=== PATIENT | male | born 1985 | race Caucasian/White ===

== ENCOUNTER 2016-10-19 16:25 | Emergency (ER) | payer OTHER ==
[~2016-10-19] VITALS: Ht 172.7 cm; Wt 188.2 kg
[~2016-10-19 16:25] MED LIST changes: -FLONASE ALLERG9.9 ML NAS; -ROBITUSSIN DM 105 ML PO
[2016-10-19] MEDS ORDERED: FLONASE ALLERG9.9 ML NAS (17:55)
[2016-10-19] MEDS ORDERED: CLARITIN10 MG PO (17:55)
[2016-10-19] MEDS ORDERED: ROBITUSSIN DM 105 ML PO (17:55)
[2016-10-19] MEDS ORDERED: PREDNISONE10 MG PO (17:55)
== END 2016-10-19 18:03 | disposition home or self-care (01) ==
LOC: ED 16:25
DX: B34.9 Viral infection, unspecified (principal); I10 Essential (primary) hypertension; I99.8 Other disorder of circulatory system; F90.9 Attention-deficit hyperactivity disorder, unspecified type; E13.10 Other specified diabetes mellitus with ketoacidosis without coma; K21.9 Gastro-esophageal reflux disease without esophagitis; E03.9 Hypothyroidism, unspecified; D64.9 Anemia, unspecified; Z79.899 Other long term (current) drug therapy; Z88.6 Allergy status to analgesic agent

== ENCOUNTER → 2016-10-19 | Outpatient (CLI) | payer OTHER ==
[~2016-10-19] MED LIST: ACTOS15 M1 PO; ADDERALL XR20 MG PO; ALBUTEROL0.09 MG/A2 IH; AMARYL4 MG PO; AMOXICILLIN500 MG PO; ANUSOL HC30 GM PO; ASPIRIN ADULT L81 M1 PO; BACTRIM DS 8001 TA1 PO; BENTYL20 MG PO; BYETTA10 MCG/0.0 SC; CIPROFLOXACIN500 MG PO; CLARITIN10 MG PO; COREG12.5 M1 PO; COREG6.25 MG PO; DELTASONE10 MG PO; DOXYCYCLINE100 MG PO; DUONEB 3 MG/3 ML3 M1 INH; FENOGLIDE40 MG PO; FLONASE ALLERG9.9 ML NAS; GLIPIZIDE1 POW; HUMALOG100 UNIT/1 SQ; HYDRALAZINE HCL50 MG PO; HYDROCODONE BIT1 T11 PO; IMODIUM A-D2 M2 PO; IMODIUM MULTI-S1 TAB PO; K-DUR 2020 MEQ PO; KEFLEX500 M1 PO; KEFLEX500 MG PO; LAC-HYDRIN12% TP; LANTUS100 U/ML SC; LASIX20 MG PO; LASIX40 MG PO; LEVAQUIN750 M1 PO; LEVOFLOXACIN500 MG PO; LISINOPRIL/HCTZ1 TA3 PO; LISINOPRIL10 MG PO; LOPERAMIDE2 MG PO; MAG-OX 400400 MG PO; METFORMIN1000 MG PO; MIRALAX POWDER17 G1 PO; MOTRIN800 MG PO; Metformin Hydr500 MG PO; Motrin,Rufen800 MG PO; NEURONTIN600 MG PO; NORVASC10 MG PO; NOVOLOG1 UNIT/0.0 SC; NOVOLOG10 ML SQ; NYSTATIN CREAM15 GM T; Nizoral 2%15 GM PO; OMNICEF300 MG PO; OXYGEN NAS; PERCOCET 325 MG1 TA2 PO; POTASSIUM20 MEQ PO; PRAVACHOL20 MG PO; PREDNISONE10 MG PO; PREDNISONE20 M1 PO; PRILOSEC20 MG; PRILOSEC40 MG PO; PROAIR HFA8.5 GM INH; PROTONIX40 MG PO; Percocet 325 MG1 TAB PO; ROBITUSSIN DM 105 ML PO; SYNTHROID0.05 MG PO; TRAMADOL HCL50 MG PO; TYLENOL325 M1 PO; VENTOLIN H0.09 MG/AC INH; VICODIN 5/500 505 MG PO; VICTOZA 3-PAK6 MG/ML SC; VICTOZA6 MG/ML SC; VITAMIN D2400 IU PO; VITAMIN D32000 IU PO; VOLTAREN50 M1 PO; ZITHROMAX Z PA250 MG PO; ZYRTEC10 MG PO; [UNRECOGNIZED DRUG - OTHER] TP
== END | disposition home or self-care (01) ==
LOC: RAD 15:27
DX: M79.674 Pain in right toe(s) (principal)

== ENCOUNTER 2017-02-27 18:24 | Inpatient (IN) | payer OTHER ==
[~2017-02-27] VITALS: Ht 172.7 cm; Wt 179.2 kg
--- NOTE | ~2017-02-27 | CON ---
[place], [place] REPORT OF CONSULTATION NAME: SD RIGGS JR [facility] [id number] UNIT #: [id number] ROOM: 408 DOCTOR: MANGO PAN MD BIRTHDATE: [birth year] DOS: 02/28/2017 REASON FOR CONSULTATION: Dyspnea and peripheral edema. HISTORY OF PRESENT ILLNESS: The patient is a 31-year-old man who has a history of super morbid obesity. This has been complicated by diabetes, hypertension, hypothyroidism, asthma and sleep apnea. The patient does use oxygen at home, but has refused to use a CPAP. He presents to the hospital on this occasion because of worsening peripheral edema and sugar out of control. He states that his sugar was over 400 at home prior to his arrival and he has noted that his legs have become more swollen. His legs do ooze water. He cannot tell me how long this has been going on. He denies fevers or chills. He denies any abrupt increase in his dyspnea, but feels that he is always short of breath. He was evaluated by [facility] in 12/2015. Two echocardiograms were done and were of low quality because of his body habitus; however, both showed normal left and right ventricular size and function with no significant aortic disease or pericardial disease. PAST MEDICAL HISTORY: Includes: 1. Super morbid obesity. 2. Hypertension. 3. Hypothyroidism. 4. Diabetes which has not been controlled lately. 5. Asthma. 6. Obstructive sleep apnea. FAMILY HISTORY: Negative for early coronary artery disease. MEDICATIONS: Prior to admission included albuterol by nebulizer b.i.d., oxygen 3 liters by nasal cannula continuously, amlodipine 10 mg daily, carvedilol 12.5 mg twice a day, vitamin D 2000 units daily, Adderall 20 mg b.i.d., fenofibrate 40 mg 4 tablets daily, furosemide 40 mg daily, gabapentin 800 mg t.i.d., hydralazine 50 mg b.i.d., levothyroxine 50 mcg daily, Imodium p.r.n., metformin 1000 mg b.i.d., pantoprazole 40 mg daily, pioglitazone 50 mg daily, potassium 20 mEq daily, NovoLog insulin 50 units a.c. and at bedtime with Lantus insulin q. 12 hours. ALLERGIES: The chart indicates that he has allergies to acetaminophen in [place] and hydrocodone in [place]. This combination of medications causes itching. REVIEW OF SYSTEMS: This patient denies diplopia or recent change in vision. He denies focal weakness. He does complain of headache. He denies syncope or lightheadedness. He does have chronic dyspnea. He denies nausea or vomiting. He denies cough, fevers or chills. He denies any change in bowel or bladder habits. He denies bleeding from his nose, mouth, urine or stool. He denies any obvious skin rashes. He does state that his legs have been much more swollen lately, although he cannot tell me how long. He does admit to oozing from his legs. The remainder of the review of systems is negative except as noted above. [place], [place] REPORT OF CONSULTATION NAME: SD RIGGS JR UNIT #: [id number] ROOM: [facility] DOCTOR: MANGO PAN MD BIRTHDATE: [birth year] SOCIAL HISTORY: The patient does not smoke, but he does chew tobacco. He does not consume alcohol. PHYSICAL EXAMINATION: GENERAL: Reveals a morbidly obese white male who is awake, alert and oriented. VITAL SIGNS: Pulse is 74 and regular, blood pressure is 148/70. He is afebrile. Oxygen saturation on nasal cannula oxygen is 99%. He weighs 193.7 kilograms with a body mass index of 64.9. HEENT: Normocephalic and atraumatic. Extraocular muscles are intact. Sclerae are clear. Pupils are equal, round and reactive to light. The oral mucosa is moist. Tongue is midline. NECK: Severely obese, but supple. Carotids are full. I could not see neck veins. He had no neck or supraclavicular masses. LUNGS: Respirations were unlabored at rest. His chest was clear. He did not have any wheezes or rales. He had no presacral edema. CARDIOVASCULAR: Heart had a regular rhythm with distant tones. There was a fourth heart sound present, but no third heart sound or obvious murmur. The PMI was not displaced, although the PMI was very difficult to feel. ABDOMEN: Obese, but otherwise benign without masses, organomegaly, bruits or tenderness. EXTREMITIES: Showed 1+ edema to the knees. SKIN: He does have skin on his ankles with chronic stasis changes. LABORATORY DATA: The patient's EKG shows sinus rhythm with low voltage. No acute ST changes are seen. Chest x-ray shows mild cardiomegaly and possible vascular congestion. Serial troponin levels have been unremarkable. Hemoglobin is 11.2, white count 6200, platelet count 300,000. TSH is 1.63. Sodium is 144, potassium 4.5, BUN 17, creatinine 0.79. Sugar this morning is 127, but hemoglobin A1c is 11.4. IMPRESSIONS: 1. Dyspnea, probably due to the patient's body habitus and restrictive lung disease. 2. Peripheral edema, possibly due to the combined effects of constrictive pulmonary disease, possibly compounded by heart failure from chronic hypoxemia and sleep apnea. 3. Super morbid obesity. 4. Obstructive sleep apnea. 5. Diabetes out of control. 6. Hypertension. PLAN: I agree with diuresing him empirically for now. We will try to get another echocardiogram to make sure that his LV function has not deteriorated in the last year. If LV function remains normal, we will continue to treat him medically for his hypertension and as needed to prevent fluid retention. No other cardiac workup is planned at this time. We thank the hospitalist physicians for asking our advice regarding his care. [place], [place] REPORT OF CONSULTATION NAME: SD RIGGS JR UNIT #: [id number] ROOM: [facility] DOCTOR: MANGO PAN MD BIRTHDATE: [birth year] MANGO PAN MD CM:CONSTR:REPORT OF CONSULTATION 9 02/28/17 [id number] interface
--- NOTE | ~2017-02-27 | PR ---
[place], [place] PROGRESS NOTE NAME: SD RIGGS JR UNIT #: [id number] ROOM: 408 DOCTOR: MANGO PAN MD BIRTHDATE: [birth year] DOS: 03/03/2017 CARDIOLOGY PROGRESS NOTE SUBJECTIVE: The patient was seen at his bedside today for followup of his fluid overload in the setting of super morbid obesity and sleep apnea. The patient has diuresed dramatically and tells me he has lost 32 pounds since he entered the hospital. As noted previously, an echocardiogram showed a mildly dilated left ventricle with normal segmental wall motion and overall systolic function. The study was technically difficult, but the ejection fraction was normal and there was no significant abnormality or valve function seen. Diastole could not be fully assessed. PHYSICAL EXAMINATION: VITAL SIGNS: Today, his pulse is 70 and regular, blood pressure is 136/78. He is afebrile. He weighs 179.2 kilograms. NECK: Supple. He has no obvious jugular venous distention. CHEST: Clear. HEART: Has a regular rhythm with distant tones. ABDOMEN: Obese, but otherwise benign. EXTREMITIES: Showed no edema. He does seem to have stabilized from a cardiac standpoint. IMPRESSION: 1. Dyspnea, most likely due to the patient's body habitus and possible restrictive lung disease. 2. Peripheral edema likely due to restrictive lung disease and possible diastolic heart failure from chronic hypoxemia and sleep apnea. 3. Super morbid obesity. 4. Obstructive sleep apnea. 5. Diabetes, which was out of control on admission. 6. Hypertension. PLAN: We will switch him from IV to oral diuretics. I think we can discontinue his monitor at this point, he would also like to have his IV removed and I have no more need for that during this hospitalization. From my perspective, he could be discharged to home and followed up as an outpatient. We will sign off his care at this time, but would be happy to see him at any time in the future at Dr. Eagle's request. We thank Dr. Eagle for asking our advice regarding the patient's care. [place], [place] PROGRESS NOTE NAME: SD RIGGS JR UNIT #: [id number] ROOM: 408 DOCTOR: MANGO PAN MD BIRTHDATE: [birth year] MANGO PAN MD CM:PNRADHA [id number] MANGO PAN MD 03/04/170 interface
--- NOTE | ~2017-02-27 | PR ---
[place], [place] PROGRESS NOTE NAME: SD RIGGS JR [facility] #: [id number] UNIT #: [id number] ROOM: 408 DOCTOR: MANGO PAN MD BIRTHDATE: [birth year] DOS: 03/01/2017 CARDIOLOGY PROGRESS NOTE SUBJECTIVE: The patient was seen at his bedside today for followup of his fluid retention in the setting of super morbid obesity and sleep apnea. I did review his echocardiogram, which was done yesterday. It showed a mildly dilated left ventricle with normal segmental wall motion. There is mild concentric left ventricular hypertrophy. This was a technically difficult study, but the ejection fraction was obviously greater than 55%. Diastole could not be fully assessed. Left atrial size was normal. No significant abnormality of valve function was seen. The patient's intake and output shows that he is in a negative fluid balance and he states that he does feel better wherever he is walking with less dyspnea. He continues to make copious amounts of urine. PHYSICAL EXAMINATION: VITAL SIGNS: Pulse is 89 and regular, blood pressure is 134/72. He is afebrile. NECK: Supple. I do not see jugular distention, but his neck is very heavy and the veins are obscured his carotids are full. LUNGS: Respirations are unlabored. He has decreased breath sounds at the bases, but no wheezes or rales. HEART: Has a regular rhythm with an S4 gallop. ABDOMEN: Massively obese without masses, organomegaly or bruits apparent. EXTREMITIES: Showed trace edema bilaterally. He does have chronic stasis changes of his ankles. IMPRESSION: 1. Dyspnea, most likely due to the patient's body habitus and possible restrictive lung disease. 2. Peripheral edema likely due to constrictive lung disease and possible diastolic heart failure from chronic hypoxemia and sleep apnea. 3. Super morbid obesity. 4. Obstructive sleep apnea. 5. Diabetes out of control. 6. Hypertension, which appears to be controlled at this time. PLAN: I would continue his beta agustín and switch his furosemide from IV to oral. He should be encouraged to ambulate as much as possible. 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 No other cardiac workup is planned at this time and we will follow him peripherally while he is still in the hospital. We thank Dr. Eagle for asking our advice regarding the patient's care. [place], [place] PROGRESS NOTE NAME: SD RIGGS JR UNIT #: [id number] ROOM: 408 DOCTOR: MANGO PAN MD BIRTHDATE: [birth year] MANGO PAN MD CM:PNTRANS [id number] MANGO PAN MD 03/02/17 0547 interface
[~2017-02-27 18:24] MED LIST changes: +FLONASE ALLERG9.9 ML NAS; +ROBITUSSIN DM 105 ML PO
[2017-02-27 18:55] VITALS: BP 175/76
[2017-02-27 19:28] LABS: BASO % 0.8 % (0.0-1.0); EOS # 0.2 10*3/uL (0.0-0.4); HEMATOCRIT 38.4 % (42.0-52.0); HEMOGLOBIN 11.2 g/dl (14.0-18.0); LYMPH % 18.5 % (27.0-41.0); MEAN CORPUSCULAR HGB 24.5 pg (27.0-31.0); MEAN CORPUSCULAR HGB CONC 29.2 g/dl (33.0-37.0); MEAN PLATELET VOLUME 10.9 fl (9.6-12.3); MONO # 0.4 10*3/uL (0.1-1.0); MONO % 7.8 % (3.0-9.0); NEUT # 3.7 10*3/uL (2.3-7.9); NEUT % 69.7 % (47.0-73.0); PLATELET COUNT AUTOMATED 291 10*3/uL (130-400); RED BLOOD COUNT 4.57 10*6/uL (4.50-5.90); RED CELL DISTRI WIDTH 15.2 % (0-14.5); WHITE BLOOD COUNT 5.3 10*3/uL (4.8-10.8)
[2017-02-27 19:45] LABS: ALBUMIN 3.4 gm/dl (3.1-4.5); ALKALINE PHOSPHATASE 43 U/L (45-117); BILIRUBIN, TOTAL 0.3 mg/dl (0.2-1.0); BUN 15 mg/dl (7-24); CARBON DIOXIDE 31 mmol/L (21-32); CHLORIDE 107 mmol/L (98-107); CKMB 0.8 ng/ml (0.5-3.6); CPK 66 U/L (39-308); EST GLOM FILT AFRICAN AMERICAN > 60 ml/min; GLUCOSE 182 mg/dL (65-99); POTASSIUM 4.3 mmol/L (3.5-5.1); SGOT/AST 11 IU/L (3-35); SGPT/ALT 20 U/L (12-78); SODIUM 145 mmol/L (136-145); TOTAL PROTEIN 6.8 gm/dL (6.4-8.2)
[2017-02-27 19:46] LABS: TROPONIN I < 0.015 ng/ml (<0.045)
[2017-02-27 21:26] LABS: LA>2 REFLEX 2 HR DRAW NOW
[2017-02-27 23:20] VITALS: BP 126/75
[2017-02-28] VITALS: BP 120/72; BP 126/75
[2017-02-28] MEDS ORDERED: LANTUS100 U/ML SC (00:03)
[2017-02-28] MEDS ORDERED: NOVOLOG10 ML SC (00:05)
[2017-02-28 04:00] VITALS: BP 128/63
[2017-02-28 06:21] LABS: BASO % 0.5 % (0.0-1.0); EOS # 0.1 10*3/uL (0.0-0.4); EOS % 2.1 % (1.0-4.0); HEMATOCRIT 39.2 % (42.0-52.0); HEMOGLOBIN 11.2 g/dl (14.0-18.0); LYMPH # 0.9 10*3/uL (1.3-4.4); LYMPH % 13.7 % (27.0-41.0); MEAN CELL VOLUME 86.3 fl (80.0-94.0); MEAN CORPUSCULAR HGB 24.7 pg (27.0-31.0); MEAN CORPUSCULAR HGB CONC 28.6 g/dl (33.0-37.0); MEAN PLATELET VOLUME 11.2 fl (9.6-12.3); MONO # 0.5 10*3/uL (0.1-1.0); MONO % 7.3 % (3.0-9.0); NEUT # 4.7 10*3/uL (2.3-7.9); NEUT % 76.2 % (47.0-73.0); PLATELET COUNT AUTOMATED 300 10*3/uL (130-400); RED BLOOD COUNT 4.54 10*6/uL (4.50-5.90); RED CELL DISTRI WIDTH 15.2 % (0-14.5); WHITE BLOOD COUNT 6.2 10*3/uL (4.8-10.8)
[2017-02-28 06:47] LABS: PROTHROMBIN TIME 10.8 SECONDS (9.0-12.4)
[2017-02-28 06:48] LABS: HEMOGLOBIN A1c 11.4 % (4.8-5.6)
[2017-02-28 06:50] LABS: ALBUMIN 3.2 gm/dl (3.1-4.5); BILIRUBIN, TOTAL 0.3 mg/dl (0.2-1.0); BUN 17 mg/dl (7-24); CARBON DIOXIDE 37 mmol/L (21-32); CHLORIDE 103 mmol/L (98-107); CHOLESTEROL 129 mg/dL (<200); EST GLOM FILT AFRICAN AMERICAN > 60 ml/min; GLUCOSE 127 mg/dL (65-99); MAGNESIUM 1.9 mg/dL (1.5-2.1); PHOSPHOROUS 5.2 mg/dL (2.5-4.9); POTASSIUM 4.5 mmol/L (3.5-5.1); SGOT/AST 10 IU/L (3-35); SGPT/ALT 20 U/L (12-78); SODIUM 144 mmol/L (136-145); TOTAL PROTEIN 6.5 gm/dL (6.4-8.2); TRIGLYCERIDES 113 mg/dl (<150); VLDL CHOLESTEROL 23 mg/dL (6-40)
[2017-02-28 06:57] LABS: ALKALINE PHOSPHATASE 41 U/L (45-117); HDL CHOLESTEROL 38 mg/dl (40-60); LDL CHOLESTEROL 68 mg/dL (9-159)
[2017-02-28 07:11] LABS: VITAMIN D, 25-HYDROXY 27.1 ng/mL (30-100)
[2017-02-28 07:12] LABS: FOLIC ACID 13.54 ng/mL (>5.38)
[2017-02-28 08:14] VITALS: BP 148/70
[2017-02-28 12:00] VITALS: BP 154/86
[2017-02-28 16:00] VITALS: BP 149/80
[2017-02-28 20:00] VITALS: BP 145/79
[2017-03-01] VITALS: BP 164/62
[2017-03-01 04:00] VITALS: BP 149/72
[2017-03-01 06:16] LABS: BASO # 0.1 10*3/uL (0.0-0.1); BASO % 1.1 % (0.0-1.0); EOS # 0.2 10*3/uL (0.0-0.4); EOS % 4.2 % (1.0-4.0); HEMATOCRIT 39.4 % (42.0-52.0); HEMOGLOBIN 11.2 g/dl (14.0-18.0); LYMPH # 1.2 10*3/uL (1.3-4.4); LYMPH % 22.3 % (27.0-41.0); MEAN CORPUSCULAR HGB 24.5 pg (27.0-31.0); MEAN CORPUSCULAR HGB CONC 28.4 g/dl (33.0-37.0); MEAN PLATELET VOLUME 11.1 fl (9.6-12.3); MONO # 0.6 10*3/uL (0.1-1.0); MONO % 10.4 % (3.0-9.0); NEUT # 3.4 10*3/uL (2.3-7.9); NEUT % 61.8 % (47.0-73.0); PLATELET COUNT AUTOMATED 324 10*3/uL (130-400); RED BLOOD COUNT 4.58 10*6/uL (4.50-5.90); RED CELL DISTRI WIDTH 15.2 % (0-14.5); WHITE BLOOD COUNT 5.5 10*3/uL (4.8-10.8)
[2017-03-01 06:41] LABS: ALBUMIN 3.2 gm/dl (3.1-4.5); ALKALINE PHOSPHATASE 40 U/L (45-117); BILIRUBIN, TOTAL 0.4 mg/dl (0.2-1.0); BUN 14 mg/dl (7-24); CARBON DIOXIDE 38 mmol/L (21-32); CHLORIDE 99 mmol/L (98-107); EST GLOM FILT AFRICAN AMERICAN > 60 ml/min; GLUCOSE 160 mg/dL (65-99); POTASSIUM 4.4 mmol/L (3.5-5.1); SGOT/AST 16 IU/L (3-35); SGPT/ALT 22 U/L (12-78); SODIUM 142 mmol/L (136-145); TOTAL PROTEIN 6.5 gm/dL (6.4-8.2)
[2017-03-01 07:54] VITALS: BP 170/60
[2017-03-01 11:51] VITALS: BP 134/72; BP 134/74
[2017-03-01 15:58] VITALS: BP 155/64
[2017-03-01 20:00] VITALS: BP 147/71
[2017-03-02] VITALS: BP 128/51
[2017-03-02 08:00] VITALS: BP 110/52
[2017-03-02 12:00] VITALS: BP 129/56
[2017-03-02] MEDS ORDERED: GABAPENTIN800 MG PO (14:38)
[2017-03-02] MEDS ORDERED: IMODIUM A-D2 M2 PO (14:56)
[2017-03-02 16:00] VITALS: BP 149/68
[2017-03-03] VITALS: BP 146/64
[2017-03-03 08:00] VITALS: BP 136/78
[2017-03-03 12:00] VITALS: BP 137/67
[2017-03-03 16:00] VITALS: BP 136/60
== END 2017-03-03 17:44 | disposition home or self-care (01) | DRG 189 ==
LOC: ED 18:24 → 4E 20:54 → ICCU 20:54 → EDHOLD 20:54 → ICCU 21:58 → 4E 02-28 12:09
PROVIDERS: Internal Medicine; Nurse Practitioner Family; Student in an Organized Health Care Education/Training Program
DX: J96.21 Acute and chronic respiratory failure with hypoxia (principal); I50.33 Acute on chronic diastolic (congestive) heart failure; R65.10 Systemic inflammatory response syndrome (SIRS) of non-infectious origin without acute organ dysfunction; I42.0 Dilated cardiomyopathy; E44.0 Moderate protein-calorie malnutrition; I11.0 Hypertensive heart disease with heart failure; I27.81 Cor pulmonale (chronic); E11.65 Type 2 diabetes mellitus with hyperglycemia; E66.2 Morbid (severe) obesity with alveolar hypoventilation; Z68.44 Body mass index [BMI] 60.0-69.9, adult; R03.0 Elevated blood-pressure reading, without diagnosis of hypertension; D72.810 Lymphocytopenia; F90.9 Attention-deficit hyperactivity disorder, unspecified type; E03.9 Hypothyroidism, unspecified; Z53.29 Procedure and treatment not carried out because of patient's decision for other reasons; D64.9 Anemia, unspecified; Z91.14 Patient's other noncompliance with medication regimen; Z99.81 Dependence on supplemental oxygen; Z88.6 Allergy status to analgesic agent; Z88.8 Allergy status to other drugs, medicaments and biological substances; Z87.81 Personal history of (healed) traumatic fracture; Z87.01 Personal history of pneumonia (recurrent); Z83.3 Family history of diabetes mellitus; Z84.89 Family history of other specified conditions; Z79.4 Long term (current) use of insulin; Z79.899 Other long term (current) drug therapy

== ENCOUNTER → 2017-05-10 | Outpatient (CLI) | payer OTHER ==
[~2017-05-10] MED LIST changes: +GABAPENTIN800 MG PO; +NOVOLOG10 ML SC
[2017-05-10 15:46] LABS: BUN 18 mg/dl (7-24); CARBON DIOXIDE 28 mmol/L (21-32); CHLORIDE 103 mmol/L (98-107); EST GLOM FILT AFRICAN AMERICAN > 60 ml/min; GLUCOSE 278 mg/dL (65-99); POTASSIUM 4.1 mmol/L (3.5-5.1); SODIUM 139 mmol/L (136-145)
== END | disposition home or self-care (01) ==
LOC: LAB 14:57
DX: Z51.81 Encounter for therapeutic drug level monitoring (principal); E11.65 Type 2 diabetes mellitus with hyperglycemia; F90.9 Attention-deficit hyperactivity disorder, unspecified type; Z79.899 Other long term (current) drug therapy

== ENCOUNTER 2017-06-01 03:03 | Emergency (ER) | payer OTHER ==
[~2017-06-01] VITALS: Ht 172.7 cm; Wt 179.6 kg
[2017-06-01] MEDS ORDERED: KETOROLAC10 MG PO (04:07)
[2017-06-01] MEDS ORDERED: Orphenadrine C100 MG PO (04:07)
== END 2017-06-01 04:45 | disposition home or self-care (01) ==
LOC: ED 03:03
DX: S20.211A Contusion of right front wall of thorax, initial encounter (principal); I11.0 Hypertensive heart disease with heart failure; I50.32 Chronic diastolic (congestive) heart failure; K21.9 Gastro-esophageal reflux disease without esophagitis; E03.9 Hypothyroidism, unspecified; E11.9 Type 2 diabetes mellitus without complications; Z88.6 Allergy status to analgesic agent; Z79.899 Other long term (current) drug therapy; W19.XXXA Unspecified fall, initial encounter; Y93.89 Activity, other specified; Y92.89 Other specified places as the place of occurrence of the external cause; Y99.8 Other external cause status

== ENCOUNTER 2017-09-08 16:43 | Inpatient (IN) | payer OTHER ==
[~2017-09-08] VITALS: Ht 172.7 cm; Wt 183.8 kg
--- NOTE | ~2017-09-08 | PR ---
[place], [place] PROGRESS NOTE [id number] UNIT #: [id number] ROOM: 507 DOCTOR: RANDELL DIXON MD BIRTHDATE: [birth year] DOS: SUBJECTIVE: The patient has been admitted to the hospital with difficulty in breathing and feeling of marked weakness due to acute congestive heart failure, SIRS due to noninfectious process with acute organ dysfunction, diabetes mellitus with hyperglycemia out of control, morbid obesity, dyspnea, swelling of both lower extremities, supplemental oxygen dependent and insulin-dependent diabetes mellitus, hypertension, lymphedema, GERD syndrome. He is feeling a little bit better. He says he is breathing better. There is no chest pain, no nausea, no vomiting. He is eating very good. Protime is 10.6. Comprehensive metabolic today shows blood sugar of 333, which is lower than yesterday and his carbon dioxide 33 due to his massive obesity and COPD and hypoxia. Phosphorus is 5, other values are normal. Hemoglobin A1c is 11.6. Blood culture is negative. OBJECTIVE: VITAL SIGNS: His blood pressure is 130/57, pulse 64, respirations 20, temperature 97.3. RANDELL DIXON MD CM:PNRADHA [id number] RANDELL DIXON MD 09/10/17 1158 interface
--- NOTE | ~2017-09-08 | PR ---
[place], [place] PROGRESS NOTE NAME: SD [facility] JR [id number] UNIT #: [id number] ROOM: 507 DOCTOR: RANDELL DIXON MD BIRTHDATE: [birth year] DOS: 09/09/2017 SUBJECTIVE: who has been admitted to the hospital with difficulty in breathing and feeling weak, unable to ambulate with congestive heart failure, noninfectious SIRS, diabetes mellitus with hyperglycemia and diabetes out of control with hemoglobin is 11.4, morbid obesity and dyspnea on exertion, swelling of both lower limbs. The patient is on oxygen, hypothyroidism, diabetes mellitus, hypertension, obstructive sleep apnea, GERD syndrome and noncompliant behavior. The patient is feeling somewhat better today. He says he is breathing better. He was given Lasix with which he has made lot of diuresis and had lost 8 pounds in the last night. His protime today is 10.6, comprehensive metabolic profile showed glucose 333, his carbon dioxide 34 due to his obstructive apnea, phosphorous is 5, other values are normal. His hemoglobin is 11.6. OBJECTIVE: VITAL SIGNS: His blood pressure is 129/59, pulse 78, respirations 20, temperature 98.6. HEART: Regular. CHEST: Having few basal crepitations. ABDOMEN: Soft. No area of tenderness. No mass palpable. Massive obesity, which is very hard to feel any organ due to his massive obesity and is having 3+ edema of leg. RANDELL DIXON MD CM:PNTRANS [id number] RANDELL DIXON MD 09/11/17 1415 interface
[~2017-09-08 16:43] MED LIST changes: +KETOROLAC10 MG PO; +Orphenadrine C100 MG PO
[2017-09-08 16:49] VITALS: BP 161/61
[2017-09-08 17:15] LABS: BASO % 0.5 % (0.0-1.0); EOS # 0.1 10*3/uL (0.0-0.4); EOS % 1.8 % (1.0-4.0); HEMATOCRIT 36.9 % (42.0-52.0); HEMOGLOBIN 11.5 g/dl (14.0-18.0); LYMPH # 1.1 10*3/uL (1.3-4.4); LYMPH % 16.4 % (27.0-41.0); MEAN CELL VOLUME 86.4 fl (80.0-94.0); MEAN CORPUSCULAR HGB 26.9 pg (27.0-31.0); MEAN CORPUSCULAR HGB CONC 31.2 g/dl (33.0-37.0); MEAN PLATELET VOLUME 11.2 fl (9.6-12.3); MONO # 0.5 10*3/uL (0.1-1.0); MONO % 7.2 % (3.0-9.0); NEUT # 4.8 10*3/uL (2.3-7.9); NEUT % 73.8 % (47.0-73.0); PLATELET COUNT AUTOMATED 287 10*3/uL (130-400); RED BLOOD COUNT 4.27 10*6/uL (4.50-5.90); RED CELL DISTRI WIDTH 14.9 % (0-14.5); WHITE BLOOD COUNT 6.5 10*3/uL (4.8-10.8)
[2017-09-08 17:24] LABS: ACT PARTIAL THROMBO TIME 22.9 SECONDS (20.8-31.5)
[2017-09-08 17:30] VITALS: BP 163/77
[2017-09-08 17:31] LABS: ALBUMIN 3.6 gm/dl (3.1-4.5); ALKALINE PHOSPHATASE 56 U/L (45-117); BUN 19 mg/dl (7-24); CHLORIDE 99 mmol/L (98-107); CREATININE 1.08 mg/dL (0.70-1.30); POTASSIUM 4.8 mmol/L (3.5-5.1); SGOT/AST 16 IU/L (3-35); SGPT/ALT 28 U/L (12-78); SODIUM 137 mmol/L (136-145); TOTAL PROTEIN 7.4 gm/dL (6.4-8.2)
[2017-09-08 17:34] LABS: TROPONIN I < 0.015 ng/ml (<0.045)
[2017-09-08 18:30] VITALS: BP 156/54
[2017-09-08 19:22] VITALS: BP 160/59
[2017-09-08 20:00] VITALS: BP 160/59; BP 180/74
[2017-09-08] MEDS ORDERED: VENTOLIN 02.5 MG/3 M INH (21:23)
[2017-09-08] MEDS ORDERED: LAMISIL AT12 GM T (21:35)
[2017-09-08] MEDS ORDERED: Lac-Hydrin 12%340 GM T (21:36)
[2017-09-08] MEDS ORDERED: DICLOFENAC SOD75 MG PO (21:37)
[2017-09-08] MEDS ORDERED: TRULICITY1.5 MG/0.5 SC (21:38)
[2017-09-08] MEDS ORDERED: AMARYL4 MG PO (21:39)
[2017-09-09] VITALS: BP 129/59
[2017-09-09 06:09] LABS: BASO # 0.1 10*3/uL (0.0-0.1); BASO % 1.2 % (0.0-1.0); EOS # 0.2 10*3/uL (0.0-0.4); EOS % 2.9 % (1.0-4.0); HEMATOCRIT 36.2 % (42.0-52.0); HEMOGLOBIN 11.1 g/dl (14.0-18.0); LYMPH # 1.1 10*3/uL (1.3-4.4); LYMPH % 18.1 % (27.0-41.0); MEAN CELL VOLUME 88.3 fl (80.0-94.0); MEAN CORPUSCULAR HGB 27.1 pg (27.0-31.0); MEAN CORPUSCULAR HGB CONC 30.7 g/dl (33.0-37.0); MEAN PLATELET VOLUME 11.4 fl (9.6-12.3); MONO # 0.6 10*3/uL (0.1-1.0); MONO % 9.6 % (3.0-9.0); NEUT % 67.9 % (47.0-73.0); PLATELET COUNT AUTOMATED 286 10*3/uL (130-400); RED CELL DISTRI WIDTH 14.9 % (0-14.5); WHITE BLOOD COUNT 5.9 10*3/uL (4.8-10.8)
[2017-09-09 06:28] LABS: ALBUMIN 3.3 gm/dl (3.1-4.5); ALKALINE PHOSPHATASE 52 U/L (45-117); BUN 21 mg/dl (7-24); CHLORIDE 98 mmol/L (98-107); CREATININE 0.93 mg/dL (0.70-1.30); POTASSIUM 4.1 mmol/L (3.5-5.1); SGOT/AST 16 IU/L (3-35); SGPT/ALT 26 U/L (12-78); SODIUM 140 mmol/L (136-145); TOTAL PROTEIN 6.9 gm/dL (6.4-8.2)
[2017-09-09 06:32] LABS: ACT PARTIAL THROMBO TIME 23.5 SECONDS (20.8-31.5)
[2017-09-09 08:00] VITALS: BP 138/61
[2017-09-09] MEDS ORDERED: K-TAB20 MEQ PO (10:47)
[2017-09-09] MEDS ORDERED: ADDERALL XR20 MG PO (10:48)
[2017-09-09 12:00] VITALS: BP 140/56
[2017-09-09 16:00] VITALS: BP 159/80
[2017-09-09 20:00] VITALS: BP 141/60
[2017-09-10] VITALS: BP 118/59
[2017-09-10 08:00] VITALS: BP 130/57
[2017-09-10 12:00] VITALS: BP 128/56
[2017-09-10 20:00] VITALS: BP 136/58
[2017-09-11] VITALS: BP 128/86
[2017-09-11 08:00] VITALS: BP 146/69
[2017-09-11 16:00] VITALS: BP 138/62
[2017-09-11 20:00] VITALS: BP 128/66
[2017-09-12] VITALS: BP 106/57
[2017-09-12 06:53] LABS: BASO # 0.1 10*3/uL (0.0-0.1); EOS # 0.2 10*3/uL (0.0-0.4); EOS % 3.1 % (1.0-4.0); HEMATOCRIT 40.6 % (42.0-52.0); HEMOGLOBIN 12.4 g/dl (14.0-18.0); LYMPH # 1.2 10*3/uL (1.3-4.4); LYMPH % 20.1 % (27.0-41.0); MEAN CELL VOLUME 87.5 fl (80.0-94.0); MEAN CORPUSCULAR HGB 26.7 pg (27.0-31.0); MEAN CORPUSCULAR HGB CONC 30.5 g/dl (33.0-37.0); MEAN PLATELET VOLUME 11.1 fl (9.6-12.3); MONO # 0.6 10*3/uL (0.1-1.0); MONO % 9.3 % (3.0-9.0); NEUT # 4.1 10*3/uL (2.3-7.9); NEUT % 66.3 % (47.0-73.0); PLATELET COUNT AUTOMATED 352 10*3/uL (130-400); RED BLOOD COUNT 4.64 10*6/uL (4.50-5.90); RED CELL DISTRI WIDTH 14.4 % (0-14.5); WHITE BLOOD COUNT 6.2 10*3/uL (4.8-10.8)
[2017-09-12 07:00] LABS: BUN 27 mg/dl (7-24); CHLORIDE 97 mmol/L (98-107); CREATININE 0.95 mg/dL (0.70-1.30); POTASSIUM 4.7 mmol/L (3.5-5.1); SODIUM 140 mmol/L (136-145)
[2017-09-12 12:00] VITALS: BP 174/64
[2017-09-12 16:00] VITALS: BP 111/56
[2017-09-12 20:04] VITALS: BP 116/61
[2017-09-13] VITALS: BP 116/52
[2017-09-13 06:36] LABS: BASO # 0.1 10*3/uL (0.0-0.1); BASO % 0.8 % (0.0-1.0); EOS # 0.2 10*3/uL (0.0-0.4); EOS % 2.6 % (1.0-4.0); HEMATOCRIT 37.3 % (42.0-52.0); HEMOGLOBIN 11.6 g/dl (14.0-18.0); LYMPH # 1.3 10*3/uL (1.3-4.4); LYMPH % 20.7 % (27.0-41.0); MEAN CELL VOLUME 85.6 fl (80.0-94.0); MEAN CORPUSCULAR HGB 26.6 pg (27.0-31.0); MEAN CORPUSCULAR HGB CONC 31.1 g/dl (33.0-37.0); MEAN PLATELET VOLUME 11.3 fl (9.6-12.3); MONO # 0.6 10*3/uL (0.1-1.0); MONO % 9.4 % (3.0-9.0); NEUT # 4.1 10*3/uL (2.3-7.9); NEUT % 66.2 % (47.0-73.0); PLATELET COUNT AUTOMATED 328 10*3/uL (130-400); RED BLOOD COUNT 4.36 10*6/uL (4.50-5.90); RED CELL DISTRI WIDTH 14.2 % (0-14.5); WHITE BLOOD COUNT 6.1 10*3/uL (4.8-10.8)
[2017-09-13 07:05] LABS: BUN 30 mg/dl (7-24); CHLORIDE 96 mmol/L (98-107); POTASSIUM 3.9 mmol/L (3.5-5.1); SODIUM 140 mmol/L (136-145)
[2017-09-13 08:00] VITALS: BP 114/68
[2017-09-13 12:00] VITALS: BP 130/66
== END 2017-09-13 13:25 | disposition home or self-care (01) | DRG 292 ==
LOC: ED 16:43 → EDHOLD 18:17 → 5E 18:17
PROVIDERS: Family Medicine; Hospitalist; Nurse Practitioner Family
DX: I11.0 Hypertensive heart disease with heart failure (principal); Z68.44 Body mass index [BMI] 60.0-69.9, adult; R65.10 Systemic inflammatory response syndrome (SIRS) of non-infectious origin without acute organ dysfunction; E66.01 Morbid (severe) obesity due to excess calories; Z99.81 Dependence on supplemental oxygen; E11.65 Type 2 diabetes mellitus with hyperglycemia; R09.02 Hypoxemia; J44.9 Chronic obstructive pulmonary disease, unspecified; F90.9 Attention-deficit hyperactivity disorder, unspecified type; E03.9 Hypothyroidism, unspecified; G47.33 Obstructive sleep apnea (adult) (pediatric); K21.9 Gastro-esophageal reflux disease without esophagitis; Z91.19 Patient's noncompliance with other medical treatment and regimen; Z88.8 Allergy status to other drugs, medicaments and biological substances; Z79.84 Long term (current) use of oral hypoglycemic drugs; Z79.4 Long term (current) use of insulin; Z79.899 Other long term (current) drug therapy; Z72.89 Other problems related to lifestyle; Z87.891 Personal history of nicotine dependence; Z83.3 Family history of diabetes mellitus; I50.33 Acute on chronic diastolic (congestive) heart failure

== ENCOUNTER 2017-10-02 12:39 | Inpatient (IN) | payer OTHER ==
[~2017-10-02] VITALS: Ht 172.7 cm; Wt 188.0 kg
[2017-10-02] VITALS (7 sets, daily range): BP systolic 138–182; BP diastolic 47–93
--- NOTE | ~2017-10-02 | PR ---
[place], [place] PROGRESS NOTE NAME: [facility]IG[facility] JR [id number] UNIT #: [id number] ROOM: 408 DOCTOR: KEATON MONZON DO BIRTHDATE: [birth year] DOS: 10/06/2017 SUBJECTIVE: The patient was seen and examined at bedside. The patient was sitting upright, eating breakfast, in no acute distress. The patient reports that he refuses to wear the BiPAP, says he does not want to use it and continues to be noncompliant. The patient has no new complaints at this time. The patient has no complaints of shortness of breath or cough. OBJECTIVE: VITAL SIGNS: Temperature 98.0, pulse is 91, respirations 20, blood pressure 160/78, pulse ox is 96% on 3 liters nasal cannula. GENERAL APPEARANCE: The patient is alert and awake and oriented x 3, in no acute distress. HEENT: Eyes are clear. No injection. Nares are patent. Oral mucosa is moist. No evidence of hemoptysis. NECK: Supple, nontender. CARDIOVASCULAR: Regular rate and rhythm, S1, S2 noted. PULMONARY: Clear to auscultation. ABDOMEN: Morbidly obese with positive bowel sounds. EXTREMITIES: Chronic edema in the lower extremities. NEUROLOGIC: No focal deficits on neuro exam. LABORATORY DATA: Reviewed. No change in labs from yesterday. The patient continues to remain stable clinically. Micro, blood cultures are pending, remain negative. IMPRESSION: 1. Pickwickian syndrome versus obstructive sleep apnea, noncompliance with his recommended therapy as outpatient or inpatient. 2. The patient continues to refuse the BiPAP. 3. Pulmonary venous congestion. 4. Morbid obesity. 5. Chronic changes in the lower extremities. PLAN OF CARE: The patient is noncompliant; however, is clinically stable from a pulmonary standpoint to continue his care as outpatient. No evidence of hemoptysis is seen. This is likely some of his chewing tobacco the patient had noticed is his sputum and not clots of blood as the patient has remained asymptomatic and his H and H have remained stable. No change in respiratory therapy. The patient can continue his therapy as outpatient. KEATON MONZON DO [place], [place] PROGRESS NOTE NAME: SD RIGGS JR UNIT #: [id number] ROOM: 408 DOCTOR: KEATON MONZON DO BIRTHDATE: [birth year] DEVIKA ROWLAND MD CM:MARISOL [phone] KEATON MONZON DO 10/06/17 2241 interface
--- NOTE | ~2017-10-02 | PR ---
[place], [place] PROGRESS NOTE NAME: SD [facility]IG[facility] JR [id number] UNIT #: [id number] ROOM: 408 DOCTOR: KEATON MONZON DO BIRTHDATE: [birth year] DOS: 10/05/2017 SUBJECTIVE: The patient was seen and examined this morning at bedside. The patient was sitting upright at the side of the bed in no acute distress. The patient reports that he refuses to wear the BiPAP because it blows his face up and it does not smell well. The patient has been noncompliant in the past and his mask is well. The patient reports that he does feel mildly improved, but he continues to have shortness of breath and cough. No hemoptysis was noted over the last 24 hours. OBJECTIVE: LABS: BMP this morning was negative except for a glucose reading of 189. All other labs were within normal range. Cultures are pending. Abdominal ultrasound shows diffuse hepatic steatosis with hepatosplenomegaly, dilated common bile duct with no stones or wall thickening appreciated. No ascites. GENERAL APPEARANCE: The patient is alert, awake and oriented x 3, in no acute distress. HEENT: The patient is atraumatic, normocephalic. Eyes are clear with no injection, no erythema. Nares are patent. Mucous membranes are moist. NECK: Supple, nontender, no masses appreciated. CARDIOVASCULAR: S1 and S2 audible. Regular rate and rhythm, no murmurs, gallops or rubs. PULMONARY: Diminished breath sounds in all lung rea. No rales, no wheezing. ABDOMEN: Morbidly obese, positive bowel sounds. EXTREMITIES: Chronic skin changes due to body habitus. NEUROLOGIC: No focal deficits were appreciated. IMPRESSION: 1. Shortness of breath. 2. Pickwickian syndrome. 3. Obesity. 4. Uncontrolled diabetes. 5. Obstructive sleep apnea. 6. Chronic respiratory failure with oxygen supplement dependence. PLAN: He was asymptomatic, no hemoptysis was collected by the nursing staff. The patient does not complain of any hemoptysis at this time. We will continue with the supportive care along with DuoNebs, IV diuresis, antibiotics and breathing treatments. No change in therapy at this time. We will continue to follow. KEATON MONZON DO [place], [place] PROGRESS NOTE NAME: SD RIGGS JR UNIT #: [id number] ROOM: 408 DOCTOR: KEATON MONZON DO BIRTHDATE: [birth year] DEVIKA ROWLAND MD CM:PNRADHA [id number] KEATON MONZON DO 10/05/17 1149 interface
--- NOTE | ~2017-10-02 | PR ---
[place], [place] PROGRESS NOTE NAME: SD RIGGS JR UNIT #: [id number] ROOM: 408 DOCTOR: DEVIKA HERNANDEZ MD BIRTHDATE: [birth year] DOS: 10/06/2017 SUBJECTIVE: The patient was independently seen and examined, [id number] encounter today. The history was confirmed. Physical examination was performed. All the labs were reviewed. Assessed for management for today's visit were personally completed and done. The note done by the medical reception was approved. The patient has been noted to presume symptoms of hemoptysis, which has not been verified at this admission. Shortness of breath symptoms have been resolving. He has not reported any symptoms of chest pain. In general, the patient has been noted reduction in the respiratory complaints. OBJECTIVE: VITAL SIGNS: Normal temperature this morning, respiratory rate of 20, heart rate 91, blood pressure 160/78. The pulse ox saturation on 2 liter nasal cannula was noted 95% at rest. HEENT: Morbid obesity. NECK: Supple and very obese. CARDIOVASCULAR: S1, S2 audible. LUNGS: Noted without any wheeze or crackle at this time. ABDOMEN: Noted severe morbid obesity and nontender. EXTREMITIES: Shows chronic changes. LABORATORY DATA: CBC was essentially noted normal. IMPRESSION 1. The patient presumed hemoptysis which are noted not verified. The patient may be related to the oral secretions expectoration mixed with chewing tobacco was very likely rather than true hemoptysis. The patient was also noted with resolving respiratory symptoms with acute bronchitis. 2. Obesity. 3. Hypoventilation. 4. Noncompliance. PLAN OF MANAGEMENT: 1. The patient further assessment and management of his obstructive sleep apnea disorder. 2. No changes in the pulmonary management. The patient will be recommended at this time. Continue other supportive plan of care as previously. [place], [place] PROGRESS NOTE NAME: SD RIGGS JR UNIT #: [id number] ROOM: 408 DOCTOR: DEVIKA HERNANDEZ MD BIRTHDATE: [birth year] DEVIKA ROWLAND MD CM:PNTRANS [id number] DEVIKA CHUN MD 10/06/17 2323 interface
--- NOTE | ~2017-10-02 | CON ---
[place], [place] REPORT OF CONSULTATION NAME: SD [facility]IGGS JR [facility]: [id number] UNIT #: [id number] ROOM: 408 DOCTOR: JANETT CHUN MDDEVIKA BIRTHDATE: [birth year] DOS: 10/04/2017 CONSULTATION REQUESTED BY: Dr. Michelle Eagle. REASON FOR CONSULTATION: To assess the patient for hemoptysis. HISTORY OF PRESENT ILLNESS: The patient was seen independently today with [id number] encounter. History of patient was confirmed personally. Physical examination performed. The assessment, management personally completed after reviewing all the lab for today's visit. Any management changes were personally made for patient today's management as well. The note done by the medical laboratory technologist for consultation was approved as well. HISTORY OF PRESENT ILLNESS: A 32-year-old male with severe morbid obesity with other pulmonary problem in the past. He has been admitted to the hospital on 09/29/2017 and treated for acute bronchitis symptom, presented to the Emergency Room on 10/02/2017. The patient reported having symptoms of hemoptysis, which is described intermittently for the past few days with increasing shortness of breath. The patient was noted very limited historian as well. He denies symptoms of chest pain with that. Denies any symptoms of rather bright red blood expectoration. The expectoration or hemoptysis described as dark blood for this patient, quantity was unknown. REVIEW OF SYSTEMS: Already completed by the medical laboratory technologist. PAST MEDICAL HISTORY: 1. The patient reported history of noncompliance. 2. Essential hypertension. 3. Hypothyroidism. 4. Chronic lymphedema. 5. Cor pulmonale. 6. "Pickwickian syndrome." 7. Obstructive sleep apnea disorder, suspected but not evaluated with a sleep study, diagnosed or treated. 8. Chronic use of oxygen supplementation nocturnally. PAST SURGICAL HISTORY: The patient reported ORIF, the details were unknown. SOCIAL HISTORY: The patient denies any personal tobacco use, has been reported ____ tobacco use. Denies history of alcohol use, illicit drug use. Any alcohol dependence. The patient does chew tobacco several pouches a day. This has been noted for the past several years. FAMILY HISTORY: The patient's father is living without any known medical illnesses, mother with complication of diabetes mellitus and known history of crack use. HOME MEDICATIONS: Reported are use of Ventolin HFA inhaler, Norvasc, Coreg, vitamin D, Adderall, diclofenac, Trulicity, fenofibrate, Neurontin, Amaryl, hydralazine, levothyroxine, metformin, oxygen supplementation 3 liters nasal [place], [place] REPORT OF CONSULTATION NAME: SD RIGGS JR UNIT #: [id number] ROOM: 408 DOCTOR: JANETT CHUN MDDEVIKA BIRTHDATE: [birth year] cannula at bedtime, Protonix and use of potassium. DRUG ALLERGIES: 1. Reported allergy to the NORCO. 2. HYDROCORTISONE allergy causing itching. PHYSICAL EXAMINATION: GENERAL: This is a 32-year-old male who has been currently noted lying in the bed on his lateral position. The patient's height recorded with the nursing staff, as 5 feet 8 inches, weight of 431 pounds, BMI 65.6. VITAL SIGNS: For the patient shows normal temperature since admission in the last 2 days, respiratory 20, heart rate 87, blood pressure 156/90-110/90 recorded. The pulse oxygen saturation noted on 3 liters nasal cannula 98% saturation. Admission pulse oxygen saturation 87% on room air. HEENT: Head is atraumatic. Eyes nonicterus. NECK: Supple, severely obese. CARDIOVASCULAR SYSTEM: S1, S2 is audible. LUNGS: The patient was noted with moderate reduction in the breath sounds, scattered wheezing. There were no crackles. ABDOMEN: Noted severely morbidly obese. Bowel sounds present. EXTREMITIES: Chronic lymphedema and skin changes. VISIBLE SKIN: Otherwise noted without any lesions or rashes. MUSCULOSKELETAL: No gross deformities. CENTRAL NERVOUS SYSTEM: The patient is able to move all the upper and lower extremities. Rest of examination was limited. LABORATORY DATA: CBC on 10/02/2017, hemoglobin 11.1, hematocrit 36.0, platelet count was normal. PT/PTT on 10/02 was normal. CMP on 10/02, glucose 325, BUN and creatinine were normal. CO2 34. CBC on 10/03, mild anemia, otherwise normal. BMP on 10/03, glucose 219. Normal BUN and creatinine, CO2 36. BMP for the patient this morning, glucose ____, CO2 of 36. The blood culture from of this month, 2 sets, no bacterial growth was noted in any of those aerobic and anaerobic bottles. One view chest x-ray very limited study because of large body habitus. The patient does not show any acute pulmonary infiltration grossly visible. Question of pulmonary venous congestion would be considered. There were no large pleural fluid at least visible. IMPRESSION: 1. Acute hypoxic respiratory failure most likely related to the exacerbation of bronchial asthma. 2. The patient with presumed history of hemoptysis, not sure if the patient does have any hemoptysis or current expectoration secretion change with the tobacco chewing with the pseudohemoptysis. 3. Metabolic alkalosis noted most likely acute hypercarbia. 4. There is a possibility of obesity hypoventilation syndrome to be excluded. 5. Strong possibility of obstructive sleep apnea disorder and acute noncompliant. 6. Diabetes mellitus and hyperglycemia for this patient would be considered as well. [place], [place] REPORT OF CONSULTATION NAME: SD RIGGS JR UNIT #: [id number] ROOM: [facility] DOCTOR: DEVIKA HERNANDEZ MD BIRTHDATE: [birth year] PLAN OF MANAGEMENT: Arterial blood gas will be obtained on room air for this patient to correctly assess the patient obesity hypoventilation syndrome. The patient has been getting intravenous antibiotic that will be continued with community acquired infection. Bronchodilator will be given every 4 hours. Assessment management for the hyperglycemia as well. Use of intravenous steroids at this time may not be necessary. Other supportive therapy, plan of management. Consideration for the BiPAP treatment for patient after obtaining arterial blood gas would be considered by the patient. He would be encouraged about complete cessation of any tobacco products as well. All other supportive therapy, plan of management and care plan. Thanks for allowing me to participate in the care of this patient. DEVIKA ROWLAND MD CM:CONSTR:REPORT OF CONSULTATION 1601 10/04/17 5265 interface
--- NOTE | ~2017-10-02 | CON ---
[place], [place] REPORT OF CONSULTATION NAME: SD RIGGS JR UNIT #: [id number] ROOM: 408 DOCTOR: KEATON MONZON DO BIRTHDATE: [birth year] DOS: 10/04/2017 HISTORY OF PRESENT ILLNESS: The patient is a 32-year-old male who presents to [facility] from home with a complaint of coughing up blood, shortness of breath, difficulty breathing. The patient was recently discharged a couple of days ago for similar issues. The patient is oxygen dependent at home and reports that he tried to increase his oxygen, but did not improve his symptoms. The patient cannot quantify how much blood was coming up in the sputum and whether it was just blood-tinged versus nicole blood; however, he did say it was dark red. Chest x-ray in the ER did show some vascular congestion and was admitted for further care. The cough and shortness of breath have been going on for about 2 weeks. The patient does have a history of chronic respiratory failure and is oxygen dependent at home and is also supposed to be on a CPAP machine supposedly for obstructive sleep apnea; however, the patient is a very poor historian and is unable to confirm much of the details in the HPI. The remainder of the HPI, is limited due to patient being a very poor historian. REVIEW OF SYSTEMS: GENERAL APPEARANCE: The patient is alert and awake, however, noticeable fatigue and somnolence. The patient is having difficulty answering questions due to his fatigue. HEENT: Eyes are clear. No injection or redness. Mucous membranes are moist. Nares are patent. CARDIOVASCULAR: The patient denies chest pain. RESPIRATORY: The patient complains of cough, which is productive with dark red and also complains of some shortness of breath. GASTROINTESTINAL: The patient denies any nausea or vomiting, diarrhea, constipation, abdominal pain. GENITOURINARY: The patient denies pain with urination, increased frequency, blood in the urine. MUSCULOSKELETAL: No joint pain, redness or tenderness noted by the patient in any of his extremities. The patient denies any rashes. NEUROLOGIC: The patient denies any dizziness, double vision, change in vision, headache. Remainder the review of systems was negative. PAST MEDICAL HISTORY: ADHD, Pickwickian syndrome, severe morbid obesity, essential hypertension, hypothyroidism, chronic back pain, diabetes mellitus poorly controlled dependent on long-term insulin use, dyslipidemia, GERD, obstructive sleep apnea, protein calorie malnutrition, oxygen dependency, vitamin D deficiency. PAST SURGICAL HISTORY: Positive for open reduction and internal fixation procedure in the past. History of trauma to the face as a kid. SOCIAL HISTORY: The patient denies alcohol use. The patient denies smoking; however, the patient does chew tobacco and has secondhand smoke exposure. FAMILY HISTORY: Mom is with a history of diabetes and cocaine abuse. Father is alive and healthy with no health issues noted. [place], [place] REPORT OF CONSULTATION NAME: SD RIGGS JR UNIT #: [id number] ROOM: 408 DOCTOR: KEATON MONZON DO BIRTHDATE: [birth year] ALLERGIES: The patient is allergic to TYLENOL and HYDROCODONE. HOME MEDICATIONS: The patient has albuterol, Norvasc, carvedilol, vitamin D, Adderall, diclofenac, Trulicity, Fenoglide, gabapentin, Amaryl, hydralazine, Synthroid, Imodium, metformin, oxygen supplementation, Protonix and potassium supplements. PHYSICAL EXAMINATION: EXTREMITIES: The patient is alert and awake; however, fatigue and mildly uncooperative with the physical exam. The patient is morbidly obese with a BMI of 64.7. VITAL SIGNS: Temperature 97.5, pulse is 87, respirations 20, blood pressure 156/90, pulse ox 94% on 3 liters nasal cannula. HEENT: Head is atraumatic, normocephalic. Eyes are clear. No injection, no erythema. Nares are patent. Mucous membranes are moist. NECK: Supple. No masses appreciated. CARDIOVASCULAR: S1, S2 audible. HEART: Regular rate and rhythm, no murmurs, gallops or rubs. PULMONARY: Diminished breath sounds in all lung rea. There are scattered crackles noted in bilateral lung bases with expiratory wheeze. ABDOMEN: Morbidly obese. Unable to palpate organs for organomegaly. Bowel sounds are present. EXTREMITIES: Chronic skin changes noted due to body habitus and hypertension and edema. CENTRAL NERVOUS SYSTEM: Cranial nerves are grossly intact. No focal deficits. LABORATORY DATA: White count 5.3, hemoglobin 10.5, hematocrit 35.0, platelet count 257. INR is 1.0 with a PT of 10.3 and a PTT of 24. Sodium is 139, potassium 4.1, chloride 98, carbon dioxide 36, BUN is 17, creatinine 0.86, glucose 219 with an A1c of 11.3. Lactic acid 1.8, calcium 8.8, phosphorus 4, magnesium 2, triglycerides 290, cholesterol is 168, LDL 82, VLDL 58, HDL 28. B12 332. Vitamin D 17.5, folic acid 8.4 and TSH 3.7. IMPRESSION: 1. Questionable hemoptysis. 2. Shortness of breath. 3. Pickwickian syndrome. 4. Obesity. 5. Uncontrolled diabetes. 6. Obstructive sleep apnea. 7. Chronic respiratory failure with oxygen supplementation dependence. PLAN: Continue with antibiotics, sputum cultures will be ordered to assess for blood in the sputum, supportive care, DuoNeb and aggressive IV diuresis. We will continue to follow. Thank you very much for this consult. [place], [place] REPORT OF CONSULTATION NAME: CEDEEPTHI JRSD Dia UNIT #: [id number] ROOM: 408 DOCTOR: KEATON MONZON DO BIRTHDATE: [birth year] KEATON MONZON DO DEVIKA ROWLAND MD CM:CONSTR:REPORT OF CONSULTATION 1101 10/05/17 0225 interface
--- NOTE | ~2017-10-02 | PR ---
[place], [place] PROGRESS NOTE NAME: [id number] UNIT #: [id number] ROOM: 408 DOCTOR: JANETT CHUN MD,DEVIKA BIRTHDATE: [birth year] DOS: 10/05/2017 The patient was seen today with [id number] encounter. The history was taken. Physical exam was performed. All the labs were reviewed. The assessment and management for the patient for today's physical was personally completed. The note done by the medical tech was approved. The patient has been continued on the bronchodilators with the oxygen supplementation. Arterial blood gas was done yesterday. The patient confirmed the diagnosis of obesity, hypoventilation syndrome. The patient also suspected with obstructive sleep apnea disorder. He has been ordered. BiPAP for the patient to be treated for the medical and severe hypercarbia for the patient, but the patient absolutely refused to do so. He stated he does not tolerate for the patient and does not want to have on his face as the air was blowing to the face with the mask. SUBJECTIVE: He has not been noted any symptoms of chest pain or hemoptysis. The patient was continued on IV Lasix as well. Denies symptoms of abdominal pain. Denies symptoms of nausea, vomiting. Denies any new skin changes as well. The patient continued to chew tobacco during the hospitalization. OBJECTIVE: VITAL SIGNS: Normal temperature, respiratory rate 20, heart rate 99-104, blood pressure 144/71-118/63 for this patient. Pulse oxygen saturation 3 liters, cannula was maintained 97% saturation. HEENT: Severe morbid obesity. NECK: Supple. Reduced posterior pharyngeal space. CARDIOVASCULAR: S1, S2 is audible. LUNGS: The patient was noted with general reduction of the breath sounds. There were no wheezing or crackles heard. ABDOMEN: Noted severely morbidly obese. Bowel sounds present without tenderness. 1. Chronic changes as well with lymphedema. MUSCULOSKELETAL: No deformities. CENTRAL NERVOUS SYSTEM: The patient grossly nonfocal. LABORATORY DATA: Review for this patient today. BMP: Glucose 189. Normal BUN and creatinine, CO2 37. The arterial blood gas that was done yesterday room air, pH of 7.36, pCO2 of 61, pO2 52.9. Ultrasound of the abdomen, the patient was completed this morning. The patient reported findings of diffuse hepatic steatosis. The patient with hepatosplenomegaly and its attenuation precludes evaluation for a mass. Dilated common bile duct was also described for the patient. There was no evidence of cholelithiasis, wall thickening of the gallbladder reported. There was no ascites. IMPRESSION: 1. The patient who has been noted with a classic obesity hypoventilation syndrome, strong suspicion for diagnostic rather obstructive sleep apnea disorder, noncompliant for this patient and has not had any further assessment. 2. Refusing to use of the BiPAP for the patient's for hypoventilation treatment. 3. Pulmonary venous congestion, possibility of mild obstructive sleep apnea [place], [place] PROGRESS NOTE NAME: SD RIGGS JR UNIT #: [id number] ROOM: 408 DOCTOR: JANETT CHUN MD,DEVIKA BIRTHDATE: [birth year] disorder. 4. Severe morbid obesity as well. 5. Chronic changes in lower extremities as well. PLAN OF MANAGEMENT: The patient would be recommended about continue current antibiotic, bronchodilators, diuretic therapy for the patient as well. Additional treatment changes will be recommended based on progression of genuineness and acceptance of the treatment by the patient. Other supportive therapy, plan of management care. Usual care, other plan of management and therapies. DEVIKA ROWLAND MD CM:PNTRANS 1540 [id number] DEVIKA CHUN MD 10/05/172002 interface
--- NOTE | ~2017-10-02 | EKG ---
[place], [place] ELECTROCARDIOGRAM REPORT NAME: SD RIGGS JR UNIT #: [id number] ROOM: 408 DOCTOR: CHRIS HOLLY MD BIRTHDATE: [birth year] DOS: 10/02/2017 RATE AND RHYTHM: Sinus rhythm at 95 beats per minute. NE interval 169 milliseconds, QRS duration 105 milliseconds, corrected QT interval 463 milliseconds, QRS axis 126. IMPRESSION: 1. Normal sinus rhythm. 2. Right axis deviation. 3. It is essentially otherwise normal EKG. CHRIS HOLLY MD CM:EKGRPT:ELECTROCARDIOGRAM REPORT 1003 1023 CHRIS HOLLY MD
[~2017-10-02 12:39] MED LIST changes: +DICLOFENAC SOD75 MG PO; +K-TAB20 MEQ PO; +LAMISIL AT12 GM T; +Lac-Hydrin 12%340 GM T; +TRULICITY1.5 MG/0.5 SC; +VENTOLIN 02.5 MG/3 M INH
[2017-10-02 13:41] LABS: BASO % 0.4 % (0.0-1.0); EOS # 0.1 10*3/uL (0.0-0.4); EOS % 1.8 % (1.0-4.0); HEMOGLOBIN 11.1 g/dl (14.0-18.0); LYMPH # 0.9 10*3/uL (1.3-4.4); MEAN CELL VOLUME 88.2 fl (80.0-94.0); MEAN CORPUSCULAR HGB 27.2 pg (27.0-31.0); MEAN CORPUSCULAR HGB CONC 30.8 g/dl (33.0-37.0); MEAN PLATELET VOLUME 11.4 fl (9.6-12.3); MONO # 0.5 10*3/uL (0.1-1.0); MONO % 6.9 % (3.0-9.0); NEUT # 5.3 10*3/uL (2.3-7.9); NEUT % 77.2 % (47.0-73.0); NUCLEATED RED BLOOD CELL 0.3 % (0.0-0.0); PLATELET COUNT AUTOMATED 282 10*3/uL (130-400); RED BLOOD COUNT 4.08 10*6/uL (4.50-5.90); RED CELL DISTRI WIDTH 15.4 % (0-14.5); WHITE BLOOD COUNT 6.8 10*3/uL (4.8-10.8)
[2017-10-02 13:56] LABS: ALBUMIN 3.4 gm/dl (3.1-4.5); ALKALINE PHOSPHATASE 64 U/L (45-117); BUN 19 mg/dl (7-24); CHLORIDE 99 mmol/L (98-107); CREATININE 1.05 mg/dL (0.70-1.30); LIPASE 152 U/L (73-393); POTASSIUM 4.3 mmol/L (3.5-5.1); SGOT/AST 22 IU/L (3-35); SGPT/ALT 27 U/L (12-78); SODIUM 139 mmol/L (136-145); TOTAL PROTEIN 7.4 gm/dL (6.4-8.2)
[2017-10-02 13:59] LABS: TROPONIN I < 0.015 ng/ml (<0.045)
[2017-10-03] VITALS: BP 154/54
[2017-10-03 06:35] LABS: BASO % 0.8 % (0.0-1.0); EOS # 0.2 10*3/uL (0.0-0.4); HEMOGLOBIN 10.5 g/dl (14.0-18.0); LYMPH # 1.1 10*3/uL (1.3-4.4); LYMPH % 20.7 % (27.0-41.0); MEAN CELL VOLUME 90.2 fl (80.0-94.0); MEAN CORPUSCULAR HGB 27.1 pg (27.0-31.0); MONO # 0.5 10*3/uL (0.1-1.0); MONO % 9.1 % (3.0-9.0); NEUT # 3.5 10*3/uL (2.3-7.9); PLATELET COUNT AUTOMATED 257 10*3/uL (130-400); RED BLOOD COUNT 3.88 10*6/uL (4.50-5.90); RED CELL DISTRI WIDTH 15.5 % (0-14.5); WHITE BLOOD COUNT 5.3 10*3/uL (4.8-10.8)
[2017-10-03 07:08] LABS: BUN 17 mg/dl (7-24); CHLORIDE 98 mmol/L (98-107); CHOLESTEROL 168 mg/dL (<200); CREATININE 0.86 mg/dL (0.70-1.30); HDL CHOLESTEROL 28 mg/dl (40-60); LDL CHOLESTEROL 82 mg/dL (9-159); POTASSIUM 4.1 mmol/L (3.5-5.1); SODIUM 139 mmol/L (136-145); TRIGLYCERIDES 290 mg/dl (<150); VLDL CHOLESTEROL 58 mg/dL (6-40)
[2017-10-03 08:00] VITALS: BP 134/60
[2017-10-03 08:37] LABS: VITAMIN D, 25-HYDROXY 17.5 ng/mL (30-100)
[2017-10-03 12:00] VITALS: BP 134/81
[2017-10-03] MEDS ORDERED: ADDERALL 20 MG20 MG PO (14:32)
[2017-10-03] MEDS ORDERED: LASIX40 MG PO (14:34)
[2017-10-03] MEDS ORDERED: LANTUS SOL100 UNIT/1 SQ (14:47)
[2017-10-03] MEDS ORDERED: NOVOLOG10 ML SC (14:48)
[2017-10-03] MEDS ORDERED: Lac-Hydrin 12%340 GM T (14:50)
[2017-10-03] MEDS ORDERED: LAMISIL AT12 GM T (14:52)
[2017-10-03 16:00] VITALS: BP 152/70
[2017-10-03 20:00] VITALS: BP 158/75
[2017-10-04] VITALS: BP 110/90
[2017-10-04 08:00] VITALS: BP 156/90
[2017-10-04 11:34] LABS: BUN 18 mg/dl (7-24); CHLORIDE 96 mmol/L (98-107); CREATININE 0.99 mg/dL (0.70-1.30); POTASSIUM 4.4 mmol/L (3.5-5.1); SODIUM 137 mmol/L (136-145)
[2017-10-04 12:00] VITALS: BP 135/76
[2017-10-04 16:00] VITALS: BP 131/65
[2017-10-04 20:02] VITALS: BP 140/76
[2017-10-04 21:08] LABS: ABG BASE EXCESS 7.1 mmol/L (-2.0-2.0); ABG HCO3 33.8 mmol/l (22-26); ABG O2 SATURATION 84.7 % (95-97); ARTERIAL BLOOD GAS PH 7.362 (7.35-7.45); ARTERIAL BLOOD GAS PO2 52.9 mmHg (80-90)
[2017-10-05] VITALS: BP 144/71
[2017-10-05 07:35] LABS: BUN 20 mg/dl (7-24); CHLORIDE 98 mmol/L (98-107); CREATININE 0.87 mg/dL (0.70-1.30); POTASSIUM 4.3 mmol/L (3.5-5.1); SODIUM 139 mmol/L (136-145)
[2017-10-05 08:00] VITALS: BP 144/66
[2017-10-05 12:00] VITALS: BP 118/63
[2017-10-05 16:00] VITALS: BP 122/71
[2017-10-05 20:00] VITALS: BP 125/71
[2017-10-06] VITALS: BP 146/61
[2017-10-06 06:09] LABS: BASO % 0.6 % (0.0-1.0); EOS # 0.2 10*3/uL (0.0-0.4); EOS % 2.8 % (1.0-4.0); HEMATOCRIT 40.3 % (42.0-52.0); HEMOGLOBIN 12.4 g/dl (14.0-18.0); LYMPH % 14.9 % (27.0-41.0); MEAN CELL VOLUME 88.6 fl (80.0-94.0); MEAN CORPUSCULAR HGB 27.3 pg (27.0-31.0); MEAN CORPUSCULAR HGB CONC 30.8 g/dl (33.0-37.0); MONO # 0.6 10*3/uL (0.1-1.0); MONO % 9.8 % (3.0-9.0); NEUT # 4.6 10*3/uL (2.3-7.9); NEUT % 71.3 % (47.0-73.0); PLATELET COUNT AUTOMATED 307 10*3/uL (130-400); RED BLOOD COUNT 4.55 10*6/uL (4.50-5.90); RED CELL DISTRI WIDTH 15.3 % (0-14.5); WHITE BLOOD COUNT 6.5 10*3/uL (4.8-10.8)
[2017-10-06 08:00] VITALS: BP 160/78
[2017-10-06 10:10] LABS: BUN 21 mg/dl (7-24); CHLORIDE 97 mmol/L (98-107); CREATININE 1.01 mg/dL (0.70-1.30); POTASSIUM 4.3 mmol/L (3.5-5.1); SODIUM 139 mmol/L (136-145)
[2017-10-06] MEDS ORDERED: K-TAB20 MEQ PO (13:17)
[2017-10-06] MEDS ORDERED: NOVOLOG10 ML SC (13:17)
[2017-10-06] MEDS ORDERED: VITAMIN D5000 UNIT PO (13:17)
[2017-10-06] MEDS ORDERED: ZITHROMAX500 MG PO (13:17)
[2017-10-06] MEDS ORDERED: LASIX40 MG PO (13:17)
== END 2017-10-06 14:36 | disposition home or self-care (01) | DRG 871 ==
LOC: ED 12:39 → EDHOLD 16:41 → 4E 16:41
PROVIDERS: Emergency Medicine; Internal Medicine; Internal Medicine Critical Care Medicine
DX: A41.9 Sepsis, unspecified organism (principal); J96.01 Acute respiratory failure with hypoxia; I50.33 Acute on chronic diastolic (congestive) heart failure; J96.02 Acute respiratory failure with hypercapnia; E44.0 Moderate protein-calorie malnutrition; E87.3 Alkalosis; K83.8 Other specified diseases of biliary tract; E11.65 Type 2 diabetes mellitus with hyperglycemia; R04.2 Hemoptysis; E66.2 Morbid (severe) obesity with alveolar hypoventilation; Z68.44 Body mass index [BMI] 60.0-69.9, adult; Z99.81 Dependence on supplemental oxygen; J40 Bronchitis, not specified as acute or chronic; F90.9 Attention-deficit hyperactivity disorder, unspecified type; K21.9 Gastro-esophageal reflux disease without esophagitis; E03.9 Hypothyroidism, unspecified; I89.0 Lymphedema, not elsewhere classified; I87.8 Other specified disorders of veins; E78.5 Hyperlipidemia, unspecified; I11.0 Hypertensive heart disease with heart failure; G89.29 Other chronic pain; M54.9 Dorsalgia, unspecified; E55.9 Vitamin D deficiency, unspecified; D64.9 Anemia, unspecified; Z53.29 Procedure and treatment not carried out because of patient's decision for other reasons; R16.2 Hepatomegaly with splenomegaly, not elsewhere classified; K76.0 Fatty (change of) liver, not elsewhere classified; Z83.3 Family history of diabetes mellitus; Z88.8 Allergy status to other drugs, medicaments and biological substances; Z79.899 Other long term (current) drug therapy; Z79.4 Long term (current) use of insulin; Z91.14 Patient's other noncompliance with medication regimen; Z81.3 Family history of other psychoactive substance abuse and dependence; Z79.84 Long term (current) use of oral hypoglycemic drugs

== ENCOUNTER 2017-12-10 18:56 | Inpatient (IN) | payer OTHER ==
[~2017-12-10] VITALS: Ht 172.7 cm; Wt 190.6 kg
--- NOTE | ~2017-12-10 | EKG ---
[place], [place] ELECTROCARDIOGRAM REPORT NAME: SD RIGGS JR UNIT #: [id number] ROOM: 404 DOCTOR: JANETT CHUN MD,DEVIKA BIRTHDATE: [birth year] DOS: 12/10/2017 Sinus tachycardia noted, heart rate 100 beats per minute. Left posterior fascicular block was noted. Nonspecific ST-T changes were noted. DEVIKA ROWLAND MD CM:EKGRPT:ELECTROCARDIOGRAM REPORT 1103 1228 DEVIKA CHUN MD
[~2017-12-10 18:56] MED LIST changes: +ADDERALL 20 MG20 MG PO; +LANTUS SOL100 UNIT/1 SQ; +VITAMIN D5000 UNIT PO; +ZITHROMAX500 MG PO
[2017-12-10 19:11] VITALS: BP 155/80
[2017-12-10 19:42] LABS: BASO % 0.6 % (0.0-1.0); EOS # 0.1 10*3/uL (0.0-0.4); EOS % 2.4 % (1.0-4.0); HEMATOCRIT 37.2 % (42.0-52.0); HEMOGLOBIN 11.5 g/dl (14.0-18.0); LYMPH % 20.2 % (27.0-41.0); MEAN CELL VOLUME 85.5 fl (80.0-94.0); MEAN CORPUSCULAR HGB 26.4 pg (27.0-31.0); MEAN CORPUSCULAR HGB CONC 30.9 g/dl (33.0-37.0); MEAN PLATELET VOLUME 11.3 fl (9.6-12.3); MONO # 0.5 10*3/uL (0.1-1.0); MONO % 10.7 % (3.0-9.0); NEUT # 3.3 10*3/uL (2.3-7.9); NEUT % 65.5 % (47.0-73.0); PLATELET COUNT AUTOMATED 278 10*3/uL (130-400); RED BLOOD COUNT 4.35 10*6/uL (4.50-5.90); RED CELL DISTRI WIDTH 14.1 % (0-14.5); WHITE BLOOD COUNT 5.1 10*3/uL (4.8-10.8)
[2017-12-10 19:59] LABS: ALBUMIN 3.1 gm/dl (3.1-4.5); ALKALINE PHOSPHATASE 56 U/L (45-117); BUN 20 mg/dl (7-24); CHLORIDE 100 mmol/L (98-107); CREATININE 1.07 mg/dL (0.70-1.30); POTASSIUM 3.8 mmol/L (3.5-5.1); SGOT/AST 24 IU/L (3-35); SGPT/ALT 39 U/L (12-78); SODIUM 138 mmol/L (136-145); TOTAL PROTEIN 7.4 gm/dL (6.4-8.2)
[2017-12-10 20:02] LABS: ACT PARTIAL THROMBO TIME 26.6 SECONDS (20.8-31.5); INTERNATIONAL NORM RATIO 0.9 (2.0-3.5)
[2017-12-10 20:04] LABS: TROPONIN I < 0.015 ng/ml (<0.045)
[2017-12-10 20:30] VITALS: BP 156/75
[2017-12-10 21:55] VITALS: BP 141/70
[2017-12-10 23:00] VITALS: BP 143/74
[2017-12-10 23:16] VITALS: BP 146/72
[2017-12-11 07:20] LABS: BASO % 0.8 % (0.0-1.0); EOS # 0.1 10*3/uL (0.0-0.4); EOS % 2.1 % (1.0-4.0); HEMOGLOBIN 10.5 g/dl (14.0-18.0); LYMPH # 1.2 10*3/uL (1.3-4.4); LYMPH % 24.9 % (27.0-41.0); MEAN CELL VOLUME 87.5 fl (80.0-94.0); MEAN CORPUSCULAR HGB 26.3 pg (27.0-31.0); MONO # 0.6 10*3/uL (0.1-1.0); MONO % 11.5 % (3.0-9.0); NEUT # 2.9 10*3/uL (2.3-7.9); NEUT % 59.5 % (47.0-73.0); PLATELET COUNT AUTOMATED 266 10*3/uL (130-400); RED CELL DISTRI WIDTH 14.1 % (0-14.5); WHITE BLOOD COUNT 4.9 10*3/uL (4.8-10.8)
[2017-12-11 07:34] LABS: ACT PARTIAL THROMBO TIME 27.7 SECONDS (20.8-31.5); BUN 17 mg/dl (7-24); CHLORIDE 101 mmol/L (98-107); CHOLESTEROL 121 mg/dL (<200); CREATININE 0.75 mg/dL (0.70-1.30); INTERNATIONAL NORM RATIO 0.9 (2.0-3.5); POTASSIUM 3.8 mmol/L (3.5-5.1); SODIUM 140 mmol/L (136-145); TRIGLYCERIDES 314 mg/dl (<150); VLDL CHOLESTEROL 63 mg/dL (6-40)
[2017-12-11 07:42] LABS: HDL CHOLESTEROL 19 mg/dl (40-60); LDL CHOLESTEROL 39 mg/dL (9-159)
[2017-12-11 08:00] VITALS: BP 140/51
[2017-12-11 08:53] LABS: VITAMIN D, 25-HYDROXY 17.6 ng/mL (30-100)
[2017-12-11] MEDS ORDERED: NOVOLOG10 ML SQ (10:02)
[2017-12-11] MEDS ORDERED: POTASSIUM CHLO10 ME4 PO (10:06)
[2017-12-11] MEDS ORDERED: VITAMIN D-32000 UNIT PO (10:07)
[2017-12-11] MEDS ORDERED: ADDERALL XR20 MG PO (10:11)
[2017-12-11] MEDS ORDERED: FUROSEMIDE40 MG PO (10:13)
[2017-12-11 12:00] VITALS: BP 155/61
[2017-12-11 16:00] VITALS: BP 131/78
[2017-12-11 20:00] VITALS: BP 146/64
[2017-12-12] VITALS: BP 135/77
[2017-12-12 06:47] LABS: BASO # 0.1 10*3/uL (0.0-0.1); BASO % 1.3 % (0.0-1.0); EOS # 0.2 10*3/uL (0.0-0.4); EOS % 3.4 % (1.0-4.0); HEMOGLOBIN 10.1 g/dl (14.0-18.0); LYMPH # 1.3 10*3/uL (1.3-4.4); LYMPH % 26.8 % (27.0-41.0); MEAN CELL VOLUME 89.2 fl (80.0-94.0); MEAN CORPUSCULAR HGB 26.5 pg (27.0-31.0); MEAN CORPUSCULAR HGB CONC 29.7 g/dl (33.0-37.0); MEAN PLATELET VOLUME 10.7 fl (9.6-12.3); MONO # 0.6 10*3/uL (0.1-1.0); MONO % 12.7 % (3.0-9.0); NEUT # 2.6 10*3/uL (2.3-7.9); NEUT % 53.7 % (47.0-73.0); NUCLEATED RED BLOOD CELL 0.4 % (0.0-0.0); PLATELET COUNT AUTOMATED 227 10*3/uL (130-400); RED BLOOD COUNT 3.81 10*6/uL (4.50-5.90); RED CELL DISTRI WIDTH 14.2 % (0-14.5); WHITE BLOOD COUNT 4.7 10*3/uL (4.8-10.8)
[2017-12-12 06:55] LABS: ALBUMIN 2.7 gm/dl (3.1-4.5); ALKALINE PHOSPHATASE 46 U/L (45-117); BUN 15 mg/dl (7-24); CHLORIDE 103 mmol/L (98-107); CREATININE 0.82 mg/dL (0.70-1.30); POTASSIUM 4.3 mmol/L (3.5-5.1); SGOT/AST 15 IU/L (3-35); SGPT/ALT 30 U/L (12-78); SODIUM 142 mmol/L (136-145); TOTAL PROTEIN 6.5 gm/dL (6.4-8.2)
[2017-12-12 08:00] VITALS: BP 155/57
[2017-12-12 12:00] VITALS: BP 143/69
[2017-12-12] MEDS ORDERED: Insulin Lispro, Reco SC (15:52)
[2017-12-12] MEDS ORDERED: LEVEMIR100 UNIT/1 SC (15:52)
[2017-12-12] MEDS ORDERED: LEVAQUIN750 M1 PO (15:52)
== END 2017-12-12 17:20 | disposition home or self-care (01) | DRG 871 ==
LOC: ED 18:56 → 4E 21:34 → EDHOLD 21:34 → 4E 21:55
PROVIDERS: Internal Medicine; Internal Medicine Hospice and Palliative Medicine; Student in an Organized Health Care Education/Training Program
DX: A41.9 Sepsis, unspecified organism (principal); J18.9 Pneumonia, unspecified organism; E43 Unspecified severe protein-calorie malnutrition; J96.11 Chronic respiratory failure with hypoxia; I11.0 Hypertensive heart disease with heart failure; I27.81 Cor pulmonale (chronic); E66.01 Morbid (severe) obesity due to excess calories; I50.9 Heart failure, unspecified; Z68.44 Body mass index [BMI] 60.0-69.9, adult; E11.65 Type 2 diabetes mellitus with hyperglycemia; R65.20 Severe sepsis without septic shock; K21.9 Gastro-esophageal reflux disease without esophagitis; F90.9 Attention-deficit hyperactivity disorder, unspecified type; E78.2 Mixed hyperlipidemia; G47.33 Obstructive sleep apnea (adult) (pediatric); E55.9 Vitamin D deficiency, unspecified; D64.9 Anemia, unspecified; E03.9 Hypothyroidism, unspecified; Z79.4 Long term (current) use of insulin; Z88.6 Allergy status to analgesic agent; Z83.3 Family history of diabetes mellitus; Z79.51 Long term (current) use of inhaled steroids; Z79.84 Long term (current) use of oral hypoglycemic drugs; Z99.81 Dependence on supplemental oxygen; Z79.899 Other long term (current) drug therapy

== ENCOUNTER 2018-04-12 21:58 | Inpatient (IN) | payer OTHER ==
[~2018-04-12] VITALS: Ht 172.7 cm; Wt 175.2 kg
--- NOTE | ~2018-04-12 | EKG ---
[place], [place] ELECTROCARDIOGRAM REPORT NAME: SD RIGGS JR UNIT #: [id number] ROOM: 411 DOCTOR: ROSE DRAFT REPORT BIRTHDATE: [birth year] [facility] Test Date: 2018-04-12 Test Time: 23:09:38 Pat Name: SD RIGGS Department: Room: Gender: Clinical Quality Rn: SS RESP : 1985 Requested By: TOYA SEPULVEDA Order Number: [id number] Reading MD: James Vides MD Measurements Intervals [place] Rate: 85 P: 58 MO: 174 QRS: 101 QRSD: 103 T: 27 QT: 399 QTc: 475 Interpretive Statements Sinus rhythm Left posterior fascicular block Nonspecific T-wave abnormalities, Ant-Lat leads Electronically Signed On 04-16-2018 8:00:08 PDT by James Vides MD CM:EKGRPT:ELECTROCARDIOGRAM REPORT 08 0800 TOYA SEPULVEDA MD EPIPHANY DRAFT REPORT TOYA SEPULVEDA MD
--- NOTE | ~2018-04-12 | PR ---
[place], [place] PROGRESS NOTE NAME: [facility]IG[id number] UNIT #: [id number] ROOM: 411 DOCTOR: RANDELL DIXON MD BIRTHDATE: [birth year] DOS: SUBJECTIVE: The patient has been admitted to the hospital with abdominal pain with difficulty in breathing and feeling of marked weakness. The patient has history of massive obesity, congestive heart failure, hypocalcemia, hypothyroidism, moderate protein-calorie malnutrition, hypertension, ADHD, GERD syndrome, hyperlipidemia, chronic respiratory failure with hypoxia and diabetes mellitus, mostly out of control. The patient is very noncompliant regarding controlling his diet and taking his medication. His hemoglobin A1c showed 11.9, which is quite high. CBC today showed white count 5500, hemoglobin 10.8, hematocrit 37.9. Basic metabolic profile today showed glucose 253, BUN 15, creatinine 0.69, carbon dioxide 34. Other values are normal. OBJECTIVE: VITAL SIGNS: His blood pressure is 145/60, pulse 82, respirations 20, temperature is 97.8. HEART: Regular. LUNGS: Showing decreased breath sounds at the bases. No crepitation. ABDOMEN: ill-defined tenderness. Bowel sounds are present. RANDELL DIXON MD CM:PNTRANS 1215 0738 RANDELL DIXON MD 04/15/18 0737 interface
--- NOTE | ~2018-04-12 | PR ---
[place], [place] PROGRESS NOTE NAME[id number] UNIT #: [id number] ROOM: 411 DOCTOR: RANDELL DIXON MD BIRTHDATE: [birth year] DOS: SUBJECTIVE: The patient has been admitted to the hospital with pain in his abdomen. He is slowly getting better. No nausea, no vomiting. The diarrhea is improving, pain in the abdomen is somewhat better and the patient has massive obesity. He is very, very strongly advised to cut down on all fatty and fried food. His proBNP 49. There is no indication of congestive heart failure and CBC today showed white count 5500, hemoglobin 10.8, hematocrit 37.9 indicating hypochromic anemia. Basic metabolic profile today shows glucose 252, BUN 15, creatinine 0.69, carbon dioxide 34. Other values are normal and the patient is diabetic, hypochromic, and malnutrition due to excessive calorie intake and his colitis is getting better. OBJECTIVE: VITAL SIGNS: His blood pressure 138/60, pulse is 80, respirations 20, temperature 98.7. RANDELL DIXON MD CM:PNTRANS 07 45 RANDELL DIXON MD 04/15/18 2345 interface
[~2018-04-12 21:58] MED LIST changes: +FUROSEMIDE40 MG PO; +Insulin Lispro, Reco SC; +LEVEMIR100 UNIT/1 SC; +POTASSIUM CHLO10 ME4 PO; +VITAMIN D-32000 UNIT PO
[2018-04-12 22:03] VITALS: BP 165/66
[2018-04-12 22:35] VITALS: BP 131/55
[2018-04-12 23:05] VITALS: BP 147/68
[2018-04-12 23:29] LABS: BASO # 0.1 10*3/uL (0.0-0.1); BASO % 0.9 % (0.0-1.0); EOS # 0.1 10*3/uL (0.0-0.4); EOS % 2.1 % (1.0-4.0); HEMATOCRIT 35.3 % (42.0-52.0); HEMOGLOBIN 10.5 g/dl (14.0-18.0); LYMPH # 1.4 10*3/uL (1.3-4.4); LYMPH % 21.6 % (27.0-41.0); MEAN CELL VOLUME 85.9 fl (80.0-94.0); MEAN CORPUSCULAR HGB 25.5 pg (27.0-31.0); MEAN CORPUSCULAR HGB CONC 29.7 g/dl (33.0-37.0); MEAN PLATELET VOLUME 10.4 fl (9.6-12.3); MONO # 0.6 10*3/uL (0.1-1.0); MONO % 8.7 % (3.0-9.0); NEUT # 4.3 10*3/uL (2.3-7.9); NEUT % 65.8 % (47.0-73.0); NUCLEATED RED BLOOD CELL 0.1 10*3/uL (0.0-0.0); NUCLEATED RED BLOOD CELL 0.9 % (0.0-0.0); PLATELET COUNT AUTOMATED 289 10*3/uL (130-400); RED BLOOD COUNT 4.11 10*6/uL (4.50-5.90); RED CELL DISTRI WIDTH 14.3 % (0-14.5); WHITE BLOOD COUNT 6.5 10*3/uL (4.8-10.8)
[2018-04-12 23:35] VITALS: BP 138/56
[2018-04-12 23:42] LABS: INTERNATIONAL NORM RATIO 0.9 (2.0-3.5)
[2018-04-12 23:46] LABS: ALBUMIN 3.1 gm/dl (3.1-4.5); ALKALINE PHOSPHATASE 75 U/L (45-117); BUN 18 mg/dl (7-24); CHLORIDE 101 mmol/L (98-107); CREATININE 1.02 mg/dL (0.70-1.30); LIPASE 105 U/L (73-393); SGOT/AST 8 IU/L (3-35); SGPT/ALT 19 U/L (12-78); SODIUM 138 mmol/L (136-145); TOTAL PROTEIN 6.9 gm/dL (6.4-8.2)
[2018-04-12 23:49] LABS: TROPONIN I < 0.015 ng/ml (<0.045)
[2018-04-13] VITALS (7 sets, daily range): BP systolic 128–175; BP diastolic 43–79
[2018-04-13 00:05] LABS: BILIRUBIN NEGATIVE (NEGATIVE); BLOOD TRACE-INTACT (NEGATIVE); CLARITY CLEAR (CLEAR); COLOR YELLOW (YELLOW); GLUCOSE 3+ (NEGATIVE); KETONE NEGATIVE (NEGATIVE); LEUKO ESTERASE NEGATIVE (NEGATIVE); NITRITE NEGATIVE (NEGATIVE); PH 5.5 (5.0-9.0); UROBILINOGEN 0.2 E.U./dl (0.2-1.0)
[2018-04-13 00:35] LABS: YEAST TRACE
[2018-04-13 06:09] LABS: ALBUMIN 3.2 gm/dl (3.1-4.5); ALKALINE PHOSPHATASE 76 U/L (45-117); BUN 20 mg/dl (7-24); CHLORIDE 101 mmol/L (98-107); CREATININE 1.02 mg/dL (0.70-1.30); SGOT/AST 20 IU/L (3-35); SGPT/ALT 24 U/L (12-78); SODIUM 140 mmol/L (136-145); TOTAL PROTEIN 7.3 gm/dL (6.4-8.2)
[2018-04-13 06:23] LABS: HEMATOCRIT 36.7 % (42.0-52.0); HEMOGLOBIN 10.4 g/dl (14.0-18.0); MEAN CORPUSCULAR HGB 25.5 pg (27.0-31.0); MEAN CORPUSCULAR HGB CONC 28.3 g/dl (33.0-37.0); MEAN PLATELET VOLUME 11.4 fl (9.6-12.3); NUCLEATED RED BLOOD CELL 0.5 % (0.0-0.0); PLATELET COUNT AUTOMATED 215 10*3/uL (130-400); RED BLOOD COUNT 4.08 10*6/uL (4.50-5.90); RED CELL DISTRI WIDTH 14.5 % (0-14.5); WHITE BLOOD COUNT 6.4 10*3/uL (4.8-10.8)
[2018-04-13 06:33] LABS: ACT PARTIAL THROMBO TIME 25.5 SECONDS (20.8-31.5); INTERNATIONAL NORM RATIO 0.9 (2.0-3.5)
[2018-04-13 06:40] LABS: FREE T4 1.16 ng/dl (0.76-1.46)
[2018-04-13 07:12] LABS: VITAMIN D, 25-HYDROXY 15.7 ng/mL (30-100)
[2018-04-13 07:27] LABS: BASOPHILS 1 % (0-1); TOTAL CELLS COUNTED 100 #CELLS
[2018-04-13 07:28] LABS: PLATELET SUFFICIENCY NORMAL (NORMAL); POLYCHROMASIA SLIGHT
[2018-04-13] MEDS ORDERED: NOVOLOG10 ML SC (10:04)
[2018-04-13] MEDS ORDERED: PROAIR HFA8.5 GM INH (10:06)
[2018-04-13] MEDS ORDERED: LANTUS SOL100 UNIT/1 SQ (10:09)
[2018-04-13] MEDS ORDERED: DIAMODE2 MG PO (10:12)
[2018-04-14] VITALS: BP 152/64
[2018-04-14 06:50] LABS: BASO # 0.1 10*3/uL (0.0-0.1); BASO % 1.3 % (0.0-1.0); EOS # 0.2 10*3/uL (0.0-0.4); EOS % 2.9 % (1.0-4.0); HEMATOCRIT 37.9 % (42.0-52.0); HEMOGLOBIN 10.8 g/dl (14.0-18.0); LYMPH # 1.1 10*3/uL (1.3-4.4); LYMPH % 20.1 % (27.0-41.0); MEAN CELL VOLUME 87.7 fl (80.0-94.0); MEAN CORPUSCULAR HGB CONC 28.5 g/dl (33.0-37.0); MEAN PLATELET VOLUME 10.6 fl (9.6-12.3); MONO # 0.6 10*3/uL (0.1-1.0); MONO % 10.1 % (3.0-9.0); NEUT # 3.5 10*3/uL (2.3-7.9); NEUT % 64.9 % (47.0-73.0); RED BLOOD COUNT 4.32 10*6/uL (4.50-5.90); RED CELL DISTRI WIDTH 14.3 % (0-14.5); WHITE BLOOD COUNT 5.5 10*3/uL (4.8-10.8)
[2018-04-14 06:51] LABS: PLATELET COUNT AUTOMATED 281 10*3/uL (130-400)
[2018-04-14 07:27] LABS: BUN 15 mg/dl (7-24); CHLORIDE 99 mmol/L (98-107); CREATININE 0.69 mg/dL (0.70-1.30); SODIUM 140 mmol/L (136-145)
[2018-04-14 08:00] VITALS: BP 150/60
[2018-04-14 12:00] VITALS: BP 145/60
[2018-04-14 16:00] VITALS: BP 138/63
[2018-04-14 20:27] VITALS: BP 122/78
[2018-04-15] VITALS: BP 138/60
[2018-04-15 06:55] LABS: BASO # 0.1 10*3/uL (0.0-0.1); BASO % 1.2 % (0.0-1.0); EOS # 0.2 10*3/uL (0.0-0.4); EOS % 2.4 % (1.0-4.0); HEMATOCRIT 36.4 % (42.0-52.0); HEMOGLOBIN 10.6 g/dl (14.0-18.0); LYMPH # 1.5 10*3/uL (1.3-4.4); LYMPH % 21.7 % (27.0-41.0); MEAN CELL VOLUME 86.7 fl (80.0-94.0); MEAN CORPUSCULAR HGB 25.2 pg (27.0-31.0); MEAN CORPUSCULAR HGB CONC 29.1 g/dl (33.0-37.0); MEAN PLATELET VOLUME 11.1 fl (9.6-12.3); MONO # 0.7 10*3/uL (0.1-1.0); MONO % 9.8 % (3.0-9.0); NEUT # 4.3 10*3/uL (2.3-7.9); NEUT % 63.9 % (47.0-73.0); PLATELET COUNT AUTOMATED 294 10*3/uL (130-400); RED CELL DISTRI WIDTH 14.3 % (0-14.5); WHITE BLOOD COUNT 6.7 10*3/uL (4.8-10.8)
[2018-04-15 07:05] LABS: BUN 17 mg/dl (7-24); CHLORIDE 102 mmol/L (98-107); CREATININE 0.61 mg/dL (0.70-1.30); POTASSIUM 4.2 mmol/L (3.5-5.1); SODIUM 141 mmol/L (136-145)
[2018-04-15 12:00] VITALS: BP 133/61
[2018-04-15 16:00] VITALS: BP 133/64
[2018-04-15 20:00] VITALS: BP 144/64
[2018-04-16] VITALS: BP 143/66
[2018-04-16 06:25] LABS: BASO # 0.1 10*3/uL (0.0-0.1); BASO % 1.1 % (0.0-1.0); EOS # 0.1 10*3/uL (0.0-0.4); EOS % 2.1 % (1.0-4.0); HEMATOCRIT 40.6 % (42.0-52.0); HEMOGLOBIN 11.7 g/dl (14.0-18.0); LYMPH # 1.4 10*3/uL (1.3-4.4); LYMPH % 22.6 % (27.0-41.0); MEAN CELL VOLUME 87.1 fl (80.0-94.0); MEAN CORPUSCULAR HGB 25.1 pg (27.0-31.0); MEAN CORPUSCULAR HGB CONC 28.8 g/dl (33.0-37.0); MEAN PLATELET VOLUME 10.8 fl (9.6-12.3); MONO # 0.6 10*3/uL (0.1-1.0); MONO % 8.9 % (3.0-9.0); NEUT # 4.1 10*3/uL (2.3-7.9); NEUT % 64.7 % (47.0-73.0); PLATELET COUNT AUTOMATED 323 10*3/uL (130-400); RED BLOOD COUNT 4.66 10*6/uL (4.50-5.90); RED CELL DISTRI WIDTH 14.5 % (0-14.5); WHITE BLOOD COUNT 6.3 10*3/uL (4.8-10.8)
[2018-04-16 06:33] LABS: BUN 15 mg/dl (7-24); CHLORIDE 103 mmol/L (98-107); CREATININE 0.64 mg/dL (0.70-1.30); POTASSIUM 4.6 mmol/L (3.5-5.1); SODIUM 139 mmol/L (136-145)
[2018-04-16 08:00] VITALS: BP 128/66
[2018-04-16 12:00] VITALS: BP 138/63
[2018-04-16 16:00] VITALS: BP 138/69
[2018-04-16 20:00] VITALS: BP 152/55
[2018-04-17] VITALS: BP 148/73
[2018-04-17 06:11] LABS: BASO # 0.1 10*3/uL (0.0-0.1); EOS # 0.1 10*3/uL (0.0-0.4); HEMATOCRIT 36.9 % (42.0-52.0); HEMOGLOBIN 10.8 g/dl (14.0-18.0); LYMPH # 1.5 10*3/uL (1.3-4.4); LYMPH % 21.6 % (27.0-41.0); MEAN CELL VOLUME 84.8 fl (80.0-94.0); MEAN CORPUSCULAR HGB 24.8 pg (27.0-31.0); MEAN CORPUSCULAR HGB CONC 29.3 g/dl (33.0-37.0); MEAN PLATELET VOLUME 10.9 fl (9.6-12.3); MONO # 0.6 10*3/uL (0.1-1.0); MONO % 8.1 % (3.0-9.0); NEUT # 4.7 10*3/uL (2.3-7.9); NEUT % 66.6 % (47.0-73.0); PLATELET COUNT AUTOMATED 290 10*3/uL (130-400); RED BLOOD COUNT 4.35 10*6/uL (4.50-5.90); RED CELL DISTRI WIDTH 14.2 % (0-14.5)
[2018-04-17 06:28] LABS: BUN 18 mg/dl (7-24); CHLORIDE 102 mmol/L (98-107); CREATININE 0.64 mg/dL (0.70-1.30); POTASSIUM 4.6 mmol/L (3.5-5.1); SODIUM 138 mmol/L (136-145)
[2018-04-17 08:00] VITALS: BP 148/68; BP 152/74
[2018-04-17] MEDS ORDERED: NYSTOP60 GM T (10:59)
[2018-04-17] MEDS ORDERED: LASIX40 MG PO (11:06)
[2018-04-17 12:00] VITALS: BP 113/88
== END 2018-04-17 14:00 | disposition home or self-care (01) | DRG 292 ==
LOC: ED 21:58 → 4E 04-13 00:03 → EDHOLD 04-13 00:03 → 4E 04-13 00:19
PROVIDERS: Emergency Medicine Emergency Medical Services; Internal Medicine; Internal Medicine Nephrology
DX: I11.0 Hypertensive heart disease with heart failure (principal); E44.0 Moderate protein-calorie malnutrition; J96.11 Chronic respiratory failure with hypoxia; I27.81 Cor pulmonale (chronic); E66.2 Morbid (severe) obesity with alveolar hypoventilation; E11.65 Type 2 diabetes mellitus with hyperglycemia; E66.01 Morbid (severe) obesity due to excess calories; Z68.44 Body mass index [BMI] 60.0-69.9, adult; I50.33 Acute on chronic diastolic (congestive) heart failure; E83.51 Hypocalcemia; R94.6 Abnormal results of thyroid function studies; E03.9 Hypothyroidism, unspecified; G47.33 Obstructive sleep apnea (adult) (pediatric); F90.9 Attention-deficit hyperactivity disorder, unspecified type; K21.9 Gastro-esophageal reflux disease without esophagitis; D64.9 Anemia, unspecified; D72.810 Lymphocytopenia; R81 Glycosuria; R80.9 Proteinuria, unspecified; R31.29 Other microscopic hematuria; E78.5 Hyperlipidemia, unspecified; B37.2 Candidiasis of skin and nail; Z83.3 Family history of diabetes mellitus; Z79.4 Long term (current) use of insulin; Z88.5 Allergy status to narcotic agent; Z99.81 Dependence on supplemental oxygen; Z91.14 Patient's other noncompliance with medication regimen; Z79.899 Other long term (current) drug therapy

== ENCOUNTER 2018-06-07 18:42 | Inpatient (IN) | payer OTHER ==
[~2018-06-07] VITALS: Ht 172.7 cm; Wt 185.6 kg
--- NOTE | ~2018-06-07 | PR ---
[place], [place] PROGRESS NOTE NAME: SD RIGGS JR UNIT #: [id number] ROOM: 419 DOCTOR: RANDELL DIXON MD BIRTHDATE: [birth year] DOS: The patient has been admitted to hospital for congestive heart failure, hypoxia with massive obesity. He is gradually getting better. He denies any chest pain, no difficulty breathing, no pain in abdomen. His swelling of his leg is getting better and his heart is regular. Chest is having some basal crepitation and his vital signs are stable. RANDELL DIXON MD CM:PNTRANS 0722 1011 RANDELL DIXON MD 06/09/18 1009 interface
--- NOTE | ~2018-06-07 | EKG ---
[place], [place] ELECTROCARDIOGRAM REPORT NAME: SD RIGGS JR UNIT #: [id number] ROOM: 419 DOCTOR: ROSE DRAFT REPORT BIRTHDATE: [birth year] [facility] Test Date: 2018-06-07 Test Time: 20:34:35 Pat Name: SD RIGGS Department: Room: 419 Gender: M Final Assembly And Packing Supervisor: Aydee White : 1985 Requested By: ZAHRA KAUR Order Number: [id number] Reading MD: Fito Francois MD Measurements Intervals [place] Rate: 93 P: 63 MT: 167 QRS: 104 QRSD: 105 T: 3 QT: 397 QTc: 494 Interpretive Statements Sinus rhythm Left posterior fascicular block Borderline T abnormalities, anterior leads Prolonged QT interval Compared to ECG 04/12/2018 23:09:38 T-wave abnormality now present Prolonged QT interval now present Electronically Signed On 06-08-2018 4:30:37 PDT by Fito Francois MD CM:EKGRPT:ELECTROCARDIOGRAM REPORT 33 0430 ZAHRA REAVES DRAFT REPORT ZAHRA KAUR DO
--- NOTE | ~2018-06-07 | PR ---
[place], [place] PROGRESS NOTE NAME: [id number] UNIT #: [id number] ROOM: 419 DOCTOR: RANDELL DIXON MD BIRTHDATE: [birth year] DOS: 06/10/2018 The patient has been admitted to hospital with congestive heart failure with hypoxia, diabetes mellitus, massive obesity, degenerative arthritis with chronic renal failure and having all other multiple problems. He fell down when he was trying to walk yesterday and sustained some injury in the back and the right knee, and he is complaining of some pain in both this area. Movement to the right knee is painful, but normal. There is no tenderness and x-rays done of the back and the knee are both normal. I explained to the patient that it will a take little time to get better and try to move his knee to get some exercise and also try to move a little bit, but not in moving and that is a big problem. The patient has been prescribed naproxen on p.r.n. basis. His congestive heart failure is improving. RANDELL DIXON MD CM:PNTRANS 1044 [id number] RANDELL DIXON MD 07/02/18 0758 interface
[~2018-06-07 18:42] MED LIST changes: +DIAMODE2 MG PO; +NYSTOP60 GM T
[2018-06-07 18:43] VITALS: BP 156/85
[2018-06-07 19:31] LABS: BASO # 0.1 10*3/uL (0.0-0.1); BASO % 1.1 % (0.0-1.0); EOS # 0.2 10*3/uL (0.0-0.4); EOS % 2.4 % (1.0-4.0); HEMOGLOBIN 10.6 g/dl (14.0-18.0); LYMPH # 1.2 10*3/uL (1.3-4.4); LYMPH % 16.6 % (27.0-41.0); MEAN CORPUSCULAR HGB 23.5 pg (27.0-31.0); MEAN CORPUSCULAR HGB CONC 28.6 g/dl (33.0-37.0); MEAN PLATELET VOLUME 10.8 fl (9.6-12.3); MONO # 0.6 10*3/uL (0.1-1.0); MONO % 8.9 % (3.0-9.0); NEUT # 5.1 10*3/uL (2.3-7.9); NEUT % 70.7 % (47.0-73.0); NUCLEATED RED BLOOD CELL 0.1 10*3/uL (0.0-0.0); NUCLEATED RED BLOOD CELL 0.8 % (0.0-0.0); PLATELET COUNT AUTOMATED 284 10*3/uL (130-400); RED BLOOD COUNT 4.51 10*6/uL (4.50-5.90); RED CELL DISTRI WIDTH 16.6 % (0-14.5); WHITE BLOOD COUNT 7.2 10*3/uL (4.8-10.8)
[2018-06-07 19:47] LABS: ALBUMIN 2.9 gm/dl (3.1-4.5); ALKALINE PHOSPHATASE 85 U/L (45-117); BUN 11 mg/dl (7-24); CHLORIDE 103 mmol/L (98-107); CREATININE 0.74 mg/dL (0.70-1.30); POTASSIUM 3.6 mmol/L (3.5-5.1); SGOT/AST 14 IU/L (3-35); SGPT/ALT 19 U/L (12-78); SODIUM 141 mmol/L (136-145); TOTAL PROTEIN 6.7 gm/dL (6.4-8.2)
[2018-06-07 19:49] LABS: TROPONIN I < 0.015 ng/ml (<0.045)
[2018-06-07 20:24] VITALS: BP 120/60
[2018-06-07 21:09] VITALS: BP 126/78
[2018-06-07 21:50] VITALS: BP 153/89
[2018-06-08] VITALS: BP 121/48
[2018-06-08 06:38] LABS: BASO # 0.1 10*3/uL (0.0-0.1); BASO % 1.2 % (0.0-1.0); EOS # 0.3 10*3/uL (0.0-0.4); EOS % 4.3 % (1.0-4.0); HEMATOCRIT 37.3 % (42.0-52.0); HEMOGLOBIN 10.5 g/dl (14.0-18.0); LYMPH # 1.2 10*3/uL (1.3-4.4); LYMPH % 17.5 % (27.0-41.0); MEAN CORPUSCULAR HGB 24.1 pg (27.0-31.0); MEAN CORPUSCULAR HGB CONC 28.2 g/dl (33.0-37.0); MEAN PLATELET VOLUME 10.9 fl (9.6-12.3); MONO # 0.6 10*3/uL (0.1-1.0); NEUT # 4.6 10*3/uL (2.3-7.9); NEUT % 67.7 % (47.0-73.0); NUCLEATED RED BLOOD CELL 0.4 % (0.0-0.0); PLATELET COUNT AUTOMATED 249 10*3/uL (130-400); RED BLOOD COUNT 4.35 10*6/uL (4.50-5.90); RED CELL DISTRI WIDTH 16.8 % (0-14.5); WHITE BLOOD COUNT 6.8 10*3/uL (4.8-10.8)
[2018-06-08 06:43] LABS: MEAN CELL VOLUME 85.7 fl (80.0-94.0)
[2018-06-08 06:49] LABS: ALBUMIN 2.8 gm/dl (3.1-4.5); ALKALINE PHOSPHATASE 84 U/L (45-117); BUN 10 mg/dl (7-24); CHLORIDE 101 mmol/L (98-107); CHOLESTEROL 111 mg/dL (<200); CREATININE 0.66 mg/dL (0.70-1.30); HDL CHOLESTEROL 27 mg/dl (40-60); LDL CHOLESTEROL 34 mg/dL (9-159); PHOSPHOROUS 4.8 mg/dL (2.5-4.9); POTASSIUM 3.7 mmol/L (3.5-5.1); SGOT/AST 16 IU/L (3-35); SGPT/ALT 21 U/L (12-78); SODIUM 142 mmol/L (136-145); TOTAL PROTEIN 6.3 gm/dL (6.4-8.2); TRIGLYCERIDES 249 mg/dl (<150); VLDL CHOLESTEROL 50 mg/dL (6-40)
[2018-06-08 08:00] VITALS: BP 135/55
[2018-06-08 12:00] VITALS: BP 133/59
[2018-06-08] MEDS ORDERED: ADDERALL XR20 MG PO (13:52)
[2018-06-08] MEDS ORDERED: Lac-Hydrin 12%340 GM TP (13:55)
[2018-06-08 16:00] VITALS: BP 107/84
[2018-06-08 20:00] VITALS: BP 140/58
[2018-06-09] VITALS: BP 152/58
[2018-06-09 04:00] VITALS: BP 145/59
[2018-06-09 07:09] LABS: BUN 10 mg/dl (7-24); CHLORIDE 98 mmol/L (98-107); CREATININE 0.66 mg/dL (0.70-1.30); POTASSIUM 4.2 mmol/L (3.5-5.1); SODIUM 138 mmol/L (136-145)
[2018-06-09 08:00] VITALS: BP 140/64
[2018-06-09 12:00] VITALS: BP 148/58
[2018-06-09 16:00] VITALS: BP 129/66
[2018-06-09 20:00] VITALS: BP 131/62
[2018-06-10] VITALS: BP 149/84
[2018-06-10 08:00] VITALS: BP 118/64
[2018-06-10 12:00] VITALS: BP 126/60
[2018-06-10 16:00] VITALS: BP 134/73
[2018-06-10 20:00] VITALS: BP 136/70; BP 138/66
[2018-06-11] VITALS: BP 127/52; BP 143/66
[2018-06-11 05:49] LABS: BASO % 0.6 % (0.0-1.0); EOS # 0.2 10*3/uL (0.0-0.4); EOS % 3.9 % (1.0-4.0); HEMATOCRIT 33.8 % (42.0-52.0); HEMOGLOBIN 9.4 g/dl (14.0-18.0); LYMPH # 0.8 10*3/uL (1.3-4.4); LYMPH % 13.4 % (27.0-41.0); MEAN CELL VOLUME 85.8 fl (80.0-94.0); MEAN CORPUSCULAR HGB 23.9 pg (27.0-31.0); MEAN CORPUSCULAR HGB CONC 27.8 g/dl (33.0-37.0); MEAN PLATELET VOLUME 11.2 fl (9.6-12.3); MONO # 0.8 10*3/uL (0.1-1.0); MONO % 12.5 % (3.0-9.0); NEUT # 4.3 10*3/uL (2.3-7.9); NEUT % 69.3 % (47.0-73.0); PLATELET COUNT AUTOMATED 261 10*3/uL (130-400); RED BLOOD COUNT 3.94 10*6/uL (4.50-5.90); RED CELL DISTRI WIDTH 16.2 % (0-14.5); WHITE BLOOD COUNT 6.2 10*3/uL (4.8-10.8)
[2018-06-11 05:56] LABS: CREATININE 0.49 mg/dL (0.70-1.30)
[2018-06-11 08:00] VITALS: BP 122/61
[2018-06-11 12:00] VITALS: BP 121/55
[2018-06-11 16:00] VITALS: BP 146/59
[2018-06-12] VITALS: BP 143/66
[2018-06-12 08:00] VITALS: BP 138/70; BP 140/84
[2018-06-12 12:00] VITALS: BP 133/71
[2018-06-12] MEDS ORDERED: DOXYCYCLINE100 M3 PO (12:29)
== END 2018-06-12 13:34 | disposition home or self-care (01) | DRG 291 ==
LOC: ED 18:42 → 4E 20:25 → EDHOLD 20:25 → 4E 20:37 → EDHOLD 20:37 → 4E 20:40
PROVIDERS: Emergency Medicine; Internal Medicine; Student in an Organized Health Care Education/Training Program
PROC: 0HBRXZZ Excision of Toe Nail, External Approach (ICD-10-PCS; principal; 2018-06-08)
PROC: 0HBRXZZ Excision of Toe Nail, External Approach (ICD-10-PCS; 2018-06-08)
PROC: 0HBRXZZ Excision of Toe Nail, External Approach (ICD-10-PCS; 2018-06-08)
PROC: 0HBRXZZ Excision of Toe Nail, External Approach (ICD-10-PCS; 2018-06-08)
PROC: 0HBRXZZ Excision of Toe Nail, External Approach (ICD-10-PCS; 2018-06-08)
DX: I13.0 Hypertensive heart and chronic kidney disease with heart failure and stage 1 through stage 4 chronic kidney disease, or unspecified chronic kidney disease (principal); I50.33 Acute on chronic diastolic (congestive) heart failure; R65.11 Systemic inflammatory response syndrome (SIRS) of non-infectious origin with acute organ dysfunction; E44.0 Moderate protein-calorie malnutrition; E66.2 Morbid (severe) obesity with alveolar hypoventilation; Z68.44 Body mass index [BMI] 60.0-69.9, adult; J96.11 Chronic respiratory failure with hypoxia; D64.9 Anemia, unspecified; D72.810 Lymphocytopenia; N18.9 Chronic kidney disease, unspecified; E11.22 Type 2 diabetes mellitus with diabetic chronic kidney disease; J40 Bronchitis, not specified as acute or chronic; M25.561 Pain in right knee; E03.9 Hypothyroidism, unspecified; M19.90 Unspecified osteoarthritis, unspecified site; E11.65 Type 2 diabetes mellitus with hyperglycemia; E11.40 Type 2 diabetes mellitus with diabetic neuropathy, unspecified; F90.9 Attention-deficit hyperactivity disorder, unspecified type; I27.81 Cor pulmonale (chronic); K21.9 Gastro-esophageal reflux disease without esophagitis; E78.5 Hyperlipidemia, unspecified; E55.9 Vitamin D deficiency, unspecified; R79.89 Other specified abnormal findings of blood chemistry; B37.2 Candidiasis of skin and nail; Z88.6 Allergy status to analgesic agent; Z88.8 Allergy status to other drugs, medicaments and biological substances; Z79.84 Long term (current) use of oral hypoglycemic drugs; Z99.81 Dependence on supplemental oxygen; Z79.4 Long term (current) use of insulin; Z83.3 Family history of diabetes mellitus

== ENCOUNTER 2018-06-13 21:54 | Inpatient (IN) | payer OTHER ==
[~2018-06-13] VITALS: Ht 165.1 cm; Wt 185.3 kg
--- NOTE | ~2018-06-13 | EKG ---
[place], [place] ELECTROCARDIOGRAM REPORT NAME: SD RIGGS JR UNIT #: [id number] ROOM: 519 DOCTOR: ROSE DRAFT REPORT BIRTHDATE: [birth year] [facility] Test Date: 2018-06-13 Test Time: 22:43:46 Pat Name: SD RGIGS Department: Room: 519 Gender: M Progress Developer: SS RESP : 1985 Requested By: GASTON JACOBSON Order Number: [id number] Reading MD: Patrick Eagle MD Measurements Intervals [place] Rate: 91 P: 26 [place]: 181 QRS: 126 QRSD: 104 T: 5 QT: 372 QTc: 458 Interpretive Statements Sinus rhythm Left posterior fascicular block Low voltage, precordial leads Compared to ECG 06/07/2018 20:34:35 Low QRS voltage now present T-wave abnormality no longer present Prolonged QT interval no longer present Electronically Signed On 06-14-2018 8:03:56 PDT by Patrick Eagle MD CM:EKGRPT:ELECTROCARDIOGRAM REPORT 2243 0803 GASTON REAVES DRAFT REPORT GASTON JAOCBSON DO
[~2018-06-13 21:54] MED LIST changes: +DOXYCYCLINE100 M3 PO; +Lac-Hydrin 12%340 GM TP
[2018-06-13 22:04] VITALS: BP 174/79
[2018-06-13 22:58] LABS: BASO # 0.1 10*3/uL (0.0-0.1); BASO % 1.1 % (0.0-1.0); EOS # 0.1 10*3/uL (0.0-0.4); EOS % 2.1 % (1.0-4.0); HEMATOCRIT 34.8 % (42.0-52.0); HEMOGLOBIN 9.9 g/dl (14.0-18.0); LYMPH # 1.1 10*3/uL (1.3-4.4); LYMPH % 18.7 % (27.0-41.0); MEAN CELL VOLUME 84.9 fl (80.0-94.0); MEAN CORPUSCULAR HGB 24.1 pg (27.0-31.0); MEAN CORPUSCULAR HGB CONC 28.4 g/dl (33.0-37.0); MEAN PLATELET VOLUME 10.4 fl (9.6-12.3); MONO # 0.6 10*3/uL (0.1-1.0); MONO % 11.3 % (3.0-9.0); NEUT # 3.8 10*3/uL (2.3-7.9); NEUT % 66.4 % (47.0-73.0); PLATELET COUNT AUTOMATED 315 10*3/uL (130-400); RED CELL DISTRI WIDTH 16.2 % (0-14.5); WHITE BLOOD COUNT 5.7 10*3/uL (4.8-10.8)
[2018-06-13 23:19] LABS: ALBUMIN 2.9 gm/dl (3.1-4.5); ALKALINE PHOSPHATASE 76 U/L (45-117); BUN 12 mg/dl (7-24); CHLORIDE 101 mmol/L (98-107); CREATININE 0.78 mg/dL (0.70-1.30); POTASSIUM 4.2 mmol/L (3.5-5.1); SGOT/AST 10 IU/L (3-35); SGPT/ALT 21 U/L (12-78); SODIUM 140 mmol/L (136-145); TOTAL PROTEIN 6.6 gm/dL (6.4-8.2)
[2018-06-13 23:27] LABS: TROPONIN I < 0.015 ng/ml (<0.045)
[2018-06-14 03:15] VITALS: BP 168/90
[2018-06-14 06:14] LABS: HEMATOCRIT 37.2 % (42.0-52.0); HEMOGLOBIN 10.4 g/dl (14.0-18.0); MEAN CELL VOLUME 85.5 fl (80.0-94.0); MEAN CORPUSCULAR HGB 23.9 pg (27.0-31.0); MEAN PLATELET VOLUME 11.1 fl (9.6-12.3); PLATELET COUNT AUTOMATED 316 10*3/uL (130-400); RED BLOOD COUNT 4.35 10*6/uL (4.50-5.90); RED CELL DISTRI WIDTH 15.8 % (0-14.5); WHITE BLOOD COUNT 6.4 10*3/uL (4.8-10.8)
[2018-06-14 06:39] LABS: BUN 14 mg/dl (7-24); CHLORIDE 98 mmol/L (98-107); SGOT/AST 11 IU/L (3-35); SGPT/ALT 22 U/L (12-78); SODIUM 136 mmol/L (136-145); TOTAL PROTEIN 6.9 gm/dL (6.4-8.2)
[2018-06-14 06:40] LABS: ALKALINE PHOSPHATASE 85 U/L (45-117); PHOSPHOROUS 4.7 mg/dL (2.5-4.9)
[2018-06-14 06:41] LABS: POTASSIUM 5.4 mmol/L (3.5-5.1)
[2018-06-14 06:47] LABS: ACT PARTIAL THROMBO TIME 25.6 SECONDS (20.8-31.5)
[2018-06-14 07:20] LABS: PLATELET SUFFICIENCY NORMAL (NORMAL); POLYCHROMASIA SLIGHT; TOTAL CELLS COUNTED 100 #CELLS
== END 2018-06-14 10:26 | disposition home or self-care (01) | DRG 871 ==
LOC: ED 21:54 → EDHOLD 06-14 01:31 → 5E 06-14 01:31
PROVIDERS: Family Medicine; Student in an Organized Health Care Education/Training Program
DX: A41.9 Sepsis, unspecified organism (principal); J18.9 Pneumonia, unspecified organism; J96.21 Acute and chronic respiratory failure with hypoxia; S82.141A Displaced bicondylar fracture of right tibia, initial encounter for closed fracture; E44.0 Moderate protein-calorie malnutrition; E66.2 Morbid (severe) obesity with alveolar hypoventilation; Z68.44 Body mass index [BMI] 60.0-69.9, adult; I27.81 Cor pulmonale (chronic); E11.65 Type 2 diabetes mellitus with hyperglycemia; I11.0 Hypertensive heart disease with heart failure; E55.9 Vitamin D deficiency, unspecified; E03.9 Hypothyroidism, unspecified; F90.9 Attention-deficit hyperactivity disorder, unspecified type; R65.20 Severe sepsis without septic shock; I50.9 Heart failure, unspecified; G47.33 Obstructive sleep apnea (adult) (pediatric); W18.39XA Other fall on same level, initial encounter; K21.9 Gastro-esophageal reflux disease without esophagitis; K83.8 Other specified diseases of biliary tract; E78.5 Hyperlipidemia, unspecified; D64.9 Anemia, unspecified; Z72.0 Tobacco use; Z99.81 Dependence on supplemental oxygen; Z79.4 Long term (current) use of insulin; Z71.6 Tobacco abuse counseling; Z88.6 Allergy status to analgesic agent; Z88.8 Allergy status to other drugs, medicaments and biological substances; Z79.899 Other long term (current) drug therapy; Z79.84 Long term (current) use of oral hypoglycemic drugs; Z83.3 Family history of diabetes mellitus; Y93.89 Activity, other specified; Y92.89 Other specified places as the place of occurrence of the external cause; Y99.8 Other external cause status

== ENCOUNTER 2018-07-02 17:22 | Emergency (ER) | payer OTHER ==
[~2018-07-02] VITALS: Ht 172.7 cm; Wt 174.6 kg
[2018-07-02] MEDS ORDERED: Percocet 325 MG1 TAB PO (17:30)
[2018-07-02] MEDS ORDERED: PERCOCET 5-3251 EACH PO (19:48)
== END 2018-07-02 19:55 | disposition home or self-care (01) ==
LOC: ED 17:22
DX: S22.41XA Multiple fractures of ribs, right side, initial encounter for closed fracture (principal); F17.200 Nicotine dependence, unspecified, uncomplicated; Z88.6 Allergy status to analgesic agent; Z79.899 Other long term (current) drug therapy; Z79.84 Long term (current) use of oral hypoglycemic drugs; Z79.4 Long term (current) use of insulin; W19.XXXA Unspecified fall, initial encounter; Y93.89 Activity, other specified; Y92.239 Unspecified place in hospital as the place of occurrence of the external cause; Y99.8 Other external cause status

== ENCOUNTER → 2018-07-11 | Outpatient (CLI) | payer OTHER ==
[~2018-07-11] MED LIST changes: +PERCOCET 5-3251 EACH PO; +ROBITUSSIN DM 101 OZ PO
== END | disposition home or self-care (01) ==
LOC: ORTHO 04:17
DX: S82.141D Displaced bicondylar fracture of right tibia, subsequent encounter for closed fracture with routine healing (principal); M79.661 Pain in right lower leg; Z91.81 History of falling; X58.XXXD Exposure to other specified factors, subsequent encounter

== ENCOUNTER → 2018-07-16 | Outpatient (CLI) | payer OTHER | END | disposition home or self-care (01) | LOC: CT 14:00 | DX: S82.144A Nondisplaced bicondylar fracture of right tibia, initial encounter for closed fracture (principal); M25.461 Effusion, right knee; X58.XXXA Exposure to other specified factors, initial encounter; Y93.89 Activity, other specified; Y92.89 Other specified places as the place of occurrence of the external cause; Y99.8 Other external cause status ==

== ENCOUNTER 2018-08-14 15:50 | Emergency (ER) | payer OTHER ==
[~2018-08-14] VITALS: Ht 172.7 cm; Wt 165.6 kg
[~2018-08-14 15:50] MED LIST changes: -ROBITUSSIN DM 101 OZ PO
[2018-08-14 17:00] LABS: BASO # 0.1 10*3/uL (0.0-0.1); BASO % 1.1 % (0.0-1.0); EOS # 0.2 10*3/uL (0.0-0.4); EOS % 2.8 % (1.0-4.0); HEMATOCRIT 36.3 % (42.0-52.0); HEMOGLOBIN 10.9 g/dl (14.0-18.0); LYMPH % 15.3 % (27.0-41.0); MEAN CELL VOLUME 80.7 fl (80.0-94.0); MEAN CORPUSCULAR HGB 24.2 pg (27.0-31.0); MEAN PLATELET VOLUME 10.7 fl (9.6-12.3); MONO # 0.6 10*3/uL (0.1-1.0); MONO % 9.3 % (3.0-9.0); NEUT # 4.4 10*3/uL (2.3-7.9); NEUT % 69.4 % (47.0-73.0); NUCLEATED RED BLOOD CELL 0.6 % (0.0-0.0); PLATELET COUNT AUTOMATED 357 10*3/uL (130-400); RED CELL DISTRI WIDTH 16.4 % (0-14.5); WHITE BLOOD COUNT 6.3 10*3/uL (4.8-10.8)
[2018-08-14 17:15] LABS: ALBUMIN 2.7 gm/dl (3.1-4.5); ALKALINE PHOSPHATASE 98 U/L (45-117); BUN 8 mg/dl (7-24); CHLORIDE 97 mmol/L (98-107); CREATININE 0.84 mg/dL (0.70-1.30); POTASSIUM 4.4 mmol/L (3.5-5.1); SGOT/AST 13 IU/L (3-35); SGPT/ALT 24 U/L (12-78); SODIUM 136 mmol/L (136-145); TOTAL PROTEIN 7.1 gm/dL (6.4-8.2)
[2018-08-14] MEDS ORDERED: ZYRTEC10 MG PO (20:12)
[2018-08-14] MEDS ORDERED: ROBITUSSIN DM 101 OZ PO (20:12)
== END 2018-08-14 21:09 | disposition home or self-care (01) ==
LOC: ED 15:50
PROVIDERS: Nurse Practitioner
DX: B34.9 Viral infection, unspecified (principal); E11.9 Type 2 diabetes mellitus without complications; Z88.6 Allergy status to analgesic agent; Z79.899 Other long term (current) drug therapy; Z79.4 Long term (current) use of insulin

== ENCOUNTER → 2018-09-21 | Outpatient (CLI) | payer OTHER ==
[~2018-09-21] MED LIST changes: +ADMELOG SO100 UNIT/1 SC; +LIPITOR20 MG PO; +ROBITUSSIN DM 101 OZ PO
== END | disposition home or self-care (01) ==
LOC: ORTHO 07:13
DX: S82.141D Displaced bicondylar fracture of right tibia, subsequent encounter for closed fracture with routine healing (principal); X58.XXXD Exposure to other specified factors, subsequent encounter

== ENCOUNTER → 2018-11-14 | Outpatient (CLI) | payer OTHER ==
[~2018-11-14] MED LIST changes: +SEPTDS PO; +TESSALON PERLE100 M1 PO
== END | disposition home or self-care (01) ==
LOC: ORTHO 08:40
DX: S82.141D Displaced bicondylar fracture of right tibia, subsequent encounter for closed fracture with routine healing (principal); M19.011 Primary osteoarthritis, right shoulder; X58.XXXD Exposure to other specified factors, subsequent encounter

== ENCOUNTER 2019-06-19 22:05 | Inpatient (IN) | payer OTHER ==
[~2019-06-19] VITALS: Ht 172.7 cm; Wt 177.0 kg
--- NOTE | ~2019-06-19 | PR ---
[place], [place] PROGRESS NOTE NAME: SD RIGGS JR [facility]: [id number] UNIT #: [id number] ROOM: 419 DOCTOR: HELEN COELLO MD BIRTHDATE: [birth year] DOS: SUBJECTIVE: He is on IV furosemide 80 mg b.i.d. and has been diuresing well. His fluid balance was -5 liters for the previous 24 hours as of this morning, negative fluid balance has been 20 kilos so far. His breathing is fine. He does not complain of any chest pain or palpitation, or leg cramps. PHYSICAL EXAMINATION: GENERAL: This is a patient who is extremely obese. He is mentally somewhat challenged. VITAL SIGNS: Pulse is regular, blood pressure 144/61. NECK: JVP difficult to assess, but appears normal. LUNGS: Clear with moderately diminished breath sounds because of some morbid obesity. Edema in the lower extremities has pretty much gone away. LABORATORY DATA: Renal function is normal with a BUN of 15, creatinine 0.69. He had an echocardiogram done, which demonstrated an EF of about 50%, LVH and moderate left atrial enlargement. IMPRESSION: This patient had acute on chronic diastolic heart failure, which was severe and now is almost compensated. I discussed this case with the resident. Patient can be discharged home on torsemide 50 mg alternating with 100 mg daily every other day. Follow up with me in a couple of weeks. HELEN COELLO MD CM:PNTRANS [phone] HELEN COELLO MD 06/25/19 0602 interface
--- NOTE | ~2019-06-19 | PR ---
[place], [place] PROGRESS NOTE NAME: SD RIGGS JR UNIT #: [id number] ROOM: 419 DOCTOR: HELEN COELLO MD BIRTHDATE: [birth year] DOS: SUBJECTIVE: This patient has severe diastolic heart failure. LV function was mildly reduced, so there maybe some systolic component as well. He has been diuresed with a loop diuretic and fluid balance has been -20 liters since admission on 06/20/2019. His weight has not been accurately measured. It was 182 when he was admitted and today it was 181 and was 173 kilos yesterday, so something is missed. He does not complain of any shortness of breath. His breathing is fine. He does not have any abdominal pain or nausea. He had no pain in the legs. PHYSICAL EXAMINATION: GENERAL: The patient is extremely obese, is watching TV. VITAL SIGNS: Pulse is 104 regular, blood pressure 132/80. NECK: JVP is difficult to assess. EXTREMITIES: He has no edema in the feet and below the knees. No sacral edema either. RESPIRATORY He is not tachypneic. Lungs are clear to auscultation with moderately reduced breath sounds because of restrictive breathing due to morbid obesity. LABORATORY DATA: Hemoglobin yesterday was 12.5 g/dL. BUN 12, creatinine 0.65, potassium 4.1. IMPRESSION: This patient has severe predominantly diastolic heart failure that is known was well compensated. PLAN: The patient can be switched over to oral diuretic. He was taking torsemide 20 b.i.d. at home; however, it was not enough, I would recommend 50 mg of torsemide alternating with 100 mg every other day and potassium supplement as well. I would like to see him in my office in the next couple of weeks. [place], [place] PROGRESS NOTE NAME: SD RIGGS JR UNIT #: [id number] ROOM: 419 DOCTOR: HELEN COELLO MD BIRTHDATE: [birth year] HELEN COELLO MD CM:PNTRANS [phone] HELEN COELLO MD 06/24/19 0331 interface
--- NOTE | ~2019-06-19 | CON ---
[place], [place] REPORT OF CONSULTATION NAME: SD RIGGS JR [facility] [facility] #: [id number] UNIT #: [id number] ROOM: 419 DOCTOR: HELEN COELLO MD BIRTHDATE: [birth year] DOS: 06/20/2019 HISTORY OF PRESENT ILLNESS: This is a 34-year-old -Fijian man who is mentally challenged. He has extreme obesity, obstructive sleep apnea, essential hypertension, type 2 diabetes mellitus and has had diastolic heart failure previously. He was admitted to this hospital in October of this year with cardiac decompensation and hypoxia. At that time, he was taken to [facility] where I performed right and left heart cath. His PA pressure was 84/47, mean of 62, indicating severe pulmonary hypertension. Pulmonary capillary wedge pressure was 24 and less than 12 is normal and right atrial pressure was 23 mmHg, 5 being normal. LV ejection fraction was 45% and coronary arteries were normal. He was admitted to the hospital because of some chest pain with deep inspiration. Pain was mostly on the left side and he complained of some water bulging in his lungs. He has had much difficulty with exertion. He has tough time walking around because of extreme obesity. He did not have any dizziness or loss of consciousness. No palpitations. He has had swelling in the legs that has gotten worse. He does not smoke. I am not sure if he uses a CPAP. In addition to above diagnoses I mentioned, he has chronic respiratory failure with hypoxia, dyslipidemia, has GERD, hypothyroidism and has used tobacco products. HOME MEDICATIONS: Include bronchodilator therapy, Norvasc 10 mg daily, carvedilol 12.5 mg b.i.d., hydralazine 50 mg b.i.d., Protonix 40 mg daily, potassium chloride 20 mEq daily, torsemide 20 mg b.i.d., gabapentin, glimepiride, insulin glargine, insulin lispro, levothyroxine, Victoza, loperamide, vitamin D and albuterol HFA. PHYSICAL EXAMINATION: GENERAL: Reveals a patient who is extremely obese. He is just laughing inappropriately. He is moderately tachypneic. Complexion is fine. He is not cyanotic. VITAL SIGNS: Temperature is normal at 98.2 degree Fahrenheit. Thyromegaly is difficult to palpate. No finger clubbing is present. VITAL SIGNS: Pulse is 84 and regular, blood pressure 155/67. NECK: JVP is significantly elevated. EXTREMITIES: He has severe edema of the lower extremities. RESPIRATORY: Breath sounds are moderately diminished with some adventitious sounds. Restricted lung sounds are due to extreme obesity. This patient had an echocardiogram previously, which was suboptimal because of his extreme obesity. Chest x-ray was reported as no acute findings. LABORATORY DATA: Hemoglobin 11.3 g/dL. Sodium 139, potassium 3.6, BUN 25, creatinine 0.82, glucose 227 mg/dL. Serum albumin is 2.8 g/dL. Troponin I levels are normal. IMPRESSION: [place], [place] REPORT OF CONSULTATION NAME: SD RIGGS JR UNIT #: [id number] ROOM: 419 DOCTOR: HELEN COELLO MD BIRTHDATE: [birth year] 1. This patient has severe right heart failure and this is due to severe pulmonary hypertension. 2. Severe pulmonary hypertension. This is due to patient's extreme obesity, chronic hypoxia due to restrictive lung disease as well as obstructive sleep apnea. 3. Diabetes mellitus is not under control. 4. Chest pain. This is noncardiac. He had normal coronary arteries 7 months ago. RECOMMENDATIONS: He needs large doses of loop diuretic intravenously for several days while monitoring potassium, renal function and magnesium levels. When he is discharged, I would probably be in favor of using 50 mg of torsemide orally once a day. Dose may need to be higher than that showed right heart failure, not be adequately controlled. I thank you for this consult. HELEN COELLO MD CM:CONSTR:REPORT OF CONSULTATION 1900 06/21/19 0023 interface
--- NOTE | ~2019-06-19 | EKG ---
[place], [place] ELECTROCARDIOGRAM REPORT NAME: SD RIGGS JR UNIT #: [id number] ROOM: 419 DOCTOR: ROSE DRAFT REPORT BIRTHDATE: [birth year] [facility] Test Date: 2019-06-20 Test Time: 03:19:23 Pat Name: SD RIGGS Department: Room: 419 Gender: M Kick Press Setter: Tiff Jaquez : 1985 Requested By: ZAHRA KAUR Order Number: [id number] Reading MD: Patrick Eagle MD Measurements Intervals [place] Rate: 84 P: 58 MD: 169 QRS: 75 QRSD: 109 T: 36 QT: 436 QTc: 516 Interpretive Statements Sinus rhythm Borderline T wave abnormalities Prolonged QT interval Compared to ECG 02/01/2019 12:51:06 T-wave abnormality now present Left posterior fascicular block no longer present Electronically Signed On 06-25-2019 9:02:44 PDT by Patrick Eagle MD CM:EKGRPT:ELECTROCARDIOGRAM REPORT 8 1 ZAHRA REAVES DRAFT REPORT ZAHRA KAUR DO
--- NOTE | ~2019-06-19 | PR ---
[place], [place] PROGRESS NOTE [id number] UNIT #: [id number] ROOM: 419 DOCTOR: HELEN COELLO MD BIRTHDATE: [birth year] DOS: 06/21/2019 SUBJECTIVE: He feels fine. He is still short of breath, swelling in the legs remains. He is not complaining of any chest pain, does not have any cough or fever. His appetite is fine. Mood seems to be pretty good. He is playing games on his phone. PHYSICAL EXAMINATION: GENERAL: Reveals a patient who is exceedingly obese with a huge torso. VITAL SIGNS: Temperature is normal, pulse is 100 and regular, blood pressure 151/72. NECK: JVP difficult to assess. EXTREMITIES: He still has 2-3+ edema of the lower extremities. Fluid balance was -7.5 liters for the last 24 hours. LABORATORY DATA: BUN is 13 and creatinine 0.71 today, both of them lower than yesterday; potassium 4.1. IMPRESSION: This patient has 1. Severe pulmonary hypertension. 2. Mild dilated/nonischemic cardiomyopathy. 3. Predominantly right heart failure due to severe pulmonary hypertension. RECOMMENDATIONS: Continue with the high dose of furosemide for the next couple of days while monitoring renal function, potassium and I think the dose that can be reduced to maybe 80 mg once a day. HELEN COELLO MD CM:PNTRANS [id number] HELEN COELLO MD 06/21/19 1428 interface
--- NOTE | ~2019-06-19 | EKG ---
[place], [place] ELECTROCARDIOGRAM REPORT NAME: SD RIGGS JR UNIT #: [id number] ROOM: 419 DOCTOR: ROSE DRAFT REPORT BIRTHDATE: [birth year] [facility] Test Date: 2019-06-20 Test Time: 00:27:16 Pat Name: SD RIGGS Department: Room: 419 Gender: M Twister Operator: Tiff Jaquez : 1985 Requested By: ZAHRA KAUR Order Number: [id number] Reading MD: Patrick Eagle MD Measurements Intervals [place] Rate: 87 P: 78 DC: 172 QRS: 116 QRSD: 107 T: 28 QT: 405 QTc: 488 Interpretive Statements Sinus rhythm Left posterior fascicular block Borderline T wave abnormalities Borderline prolonged QT interval Compared to ECG 02/01/2019 12:51:06 T-wave abnormality now present Electronically Signed On 06-25-2019 9:02:37 PDT by Patrick Eagle MD CM:EKGRPT:ELECTROCARDIOGRAM REPORT 0027 1 ZAHRA REAVES DRAFT REPORT ZAHRA KAUR DO
--- NOTE | ~2019-06-19 | EKG ---
[place], [place] ELECTROCARDIOGRAM REPORT NAME: SD RIGGS JR UNIT #: [id number] ROOM: 419 DOCTOR: ROSE DRAFT REPORT BIRTHDATE: [birth year] [facility] Test Date: 2019-06-19 Test Time: 22:13:07 Pat Name: SD RIGGS Department: Room: 419 Gender: M Legal Analyst: : 1985 Requested By: ZAHRA KAUR Order Number: [id number] Reading MD: Patrick Eagle MD Measurements Intervals [place] Rate: 92 P: 51 ID: 176 QRS: 108 QRSD: 105 T: 25 QT: 399 QTc: 494 Interpretive Statements Sinus rhythm Left posterior fascicular block Borderline prolonged QT interval Compared to ECG 02/01/2019 12:51:06 No significant changes Electronically Signed On 06-25-2019 9:02:31 PDT by Patrick Eagle MD CM:EKGRPT:ELECTROCARDIOGRAM REPORT 12 09 ZAHRA REAVES DRAFT REPORT ZAHRA KAUR DO
[2019-06-19 22:15] VITALS: BP 170/54
[2019-06-19 22:30] LABS: BASO % 0.4 % (0.0-1.0); EOS # 0.1 10*3/uL (0.0-0.4); EOS % 1.9 % (1.0-4.0); HEMATOCRIT 38.7 % (42.0-52.0); HEMOGLOBIN 12.4 g/dl (14.0-18.0); LYMPH # 1.6 10*3/uL (1.3-4.4); LYMPH % 21.4 % (27.0-41.0); MEAN CELL VOLUME 86.8 fl (80.0-94.0); MEAN CORPUSCULAR HGB 27.8 pg (27.0-31.0); MEAN PLATELET VOLUME 11.2 fl (9.6-12.3); MONO # 0.6 10*3/uL (0.1-1.0); MONO % 8.6 % (3.0-9.0); NEUT % 67.3 % (47.0-73.0); PLATELET COUNT AUTOMATED 270 10*3/uL (130-400); RED BLOOD COUNT 4.46 10*6/uL (4.50-5.90); RED CELL DISTRI WIDTH 14.6 % (0-14.5); WHITE BLOOD COUNT 7.4 10*3/uL (4.8-10.8)
[2019-06-19 22:43] LABS: ACT PARTIAL THROMBO TIME 23.6 SECONDS (20.0-32.1); INTERNATIONAL NORM RATIO 0.9 (2.0-3.5)
--- NOTE | 2019-06-19 22:45 | NUR ---
PRESCRIBED 3L O2 APPLIED PER PATIENT REQUEST. SPO2 98% ON ROOM AIR.
[2019-06-19 22:49] LABS: ALBUMIN 2.9 gm/dl (3.1-4.5); ALKALINE PHOSPHATASE 67 U/L (45-117); BUN 30 mg/dl (7-24); CHLORIDE 102 mmol/L (98-107); CREATININE 1.01 mg/dL (0.70-1.30); POTASSIUM 4.5 mmol/L (3.5-5.1); SGOT/AST 30 IU/L (3-35); SGPT/ALT 32 U/L (12-78); SODIUM 137 mmol/L (136-145); TOTAL PROTEIN 6.7 gm/dL (6.4-8.2)
[2019-06-19 22:51] LABS: TROPONIN I < 0.015 ng/ml (<0.045)
[2019-06-19 23:30] VITALS: BP 154/84
--- NOTE | 2019-06-19 23:30 | NUR ---
PT GIVEN BSC TO WOID STATES HE CANNOT GO IN A URINAL. IT WAS EXPLAINED TO THE PAITENT WE NEED TO MONITOR URINE OUTPUT. STATES HE CAN SIT ON HTE SIDE OF THE BED AND VOID IN HTE BSC. JERONIMO STERN RN.
[2019-06-20 01:00] VITALS: BP 144/86
--- NOTE | 2019-06-20 01:00 | NUR ---
PT AMBULATORY TO THE BATHROOM AT THIS TIME STATES HE DOES NOT WANT THE MONITOPR BACK ON AT THIS TIME. JERONIMO STERN RN.
[2019-06-20 02:45] VITALS: BP 158/62
--- NOTE | 2019-06-20 02:45 | NUR ---
A 34, admitted to , under the services of CHRIS Thomas MD with a diagnosis of CHEST PAIN, SHORTNESS OF BREATH. Chief complaint is SHORTNESS OF BREATH. Patient arrived via bed from ER. Monitor applied. Initial assessment completed. Vital signs taken and recorded. CHRIS THOMAS MD notified of admission to the unit. Orders received. See assessment for past medical history, medications and allergies. Patient and/or family oriented to unit. [facility] visitation policy reviewed. Clothing/patient valuable form completed. AKOSUA EPSTEIN
--- NOTE | 2019-06-20 02:52 | NUR ---
PATIENT UNSURE OF HOME MEDICATIONS. WILL NEED TO CALL [facility] IN AM
[2019-06-20 04:19] LABS: BASO % 0.7 % (0.0-1.0); EOS # 0.1 10*3/uL (0.0-0.4); EOS % 2.4 % (1.0-4.0); HEMOGLOBIN 11.3 g/dl (14.0-18.0); LYMPH # 1.4 10*3/uL (1.3-4.4); LYMPH % 24.4 % (27.0-41.0); MEAN CORPUSCULAR HGB 27.6 pg (27.0-31.0); MEAN CORPUSCULAR HGB CONC 31.4 g/dl (33.0-37.0); MEAN PLATELET VOLUME 10.3 fl (9.6-12.3); MONO # 0.5 10*3/uL (0.1-1.0); MONO % 8.8 % (3.0-9.0); NEUT # 3.7 10*3/uL (2.3-7.9); NEUT % 63.4 % (47.0-73.0); PLATELET COUNT AUTOMATED 232 10*3/uL (130-400); RED BLOOD COUNT 4.09 10*6/uL (4.50-5.90); RED CELL DISTRI WIDTH 14.4 % (0-14.5); WHITE BLOOD COUNT 5.9 10*3/uL (4.8-10.8)
[2019-06-20 04:36] LABS: ALBUMIN 2.8 gm/dl (3.1-4.5); ALKALINE PHOSPHATASE 57 U/L (45-117); BUN 25 mg/dl (7-24); CHLORIDE 102 mmol/L (98-107); CREATININE 0.82 mg/dL (0.70-1.30); PHOSPHOROUS 4.1 mg/dL (2.5-4.9); POTASSIUM 3.6 mmol/L (3.5-5.1); SGOT/AST 12 IU/L (3-35); SGPT/ALT 28 U/L (12-78); SODIUM 139 mmol/L (136-145)
[2019-06-20 08:00] VITALS: BP 140/66
[2019-06-20] MEDS ORDERED: ADMELOG100 UNIT/1 SQ (09:00)
[2019-06-20] MEDS ORDERED: TORSEMIDE20 MG PO (09:03)
[2019-06-20] MEDS ORDERED: Oscal,Oyster S500 MG PO (09:05)
[2019-06-20 13:00] VITALS: BP 137/50
--- NOTE | 2019-06-20 15:00 | NUR ---
Milk Inspector in to talk to patient. Patient states lives at home alone with his family checking in on him. There are 0 steps in the home. Physician: Dr. 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 He lives at home alone with his family checking in on him. He is independent in his ADLs and ambulates with a cane. Discussed home health care services and he denies any home needs. When medically stable he will be discharged to home. His sister will provide transportation on discharge. NANNETTE GONZALEZ
[2019-06-20 16:00] VITALS: BP 155/67
--- NOTE | 2019-06-20 19:38 | NUR ---
IN TO ASSESS PATIENT. BREATHIGN IS EASY AND REGULAR ON 3L THAT PATIENT IS O2 DEPENDENT ON. +3 PITTING EDEMA TO BLE. DIMINISHED LUNGS T/O. STATES SOB IS BETTER BUT LEGS ARE ABOUT THE SAME. NORMOCTIVE BOWELS X4 QUADS, DENIES N/V/D/C. OBESE NONTENDER ABDOMEN. PATIENT HAS NO COMPLAINTS AT THIS TIME. JUST WANTS TO GO BACK TO SLEEP
[2019-06-20 20:00] VITALS: BP 156/53
[2019-06-21] VITALS: BP 151/72
--- NOTE | 2019-06-21 01:02 | NUR ---
24 HR chart check completed.
[2019-06-21 06:04] LABS: CHLORIDE 103 mmol/L (98-107); CREATININE 0.71 mg/dL (0.70-1.30); POTASSIUM 4.1 mmol/L (3.5-5.1); SODIUM 140 mmol/L (136-145)
[2019-06-21 06:13] LABS: BUN 13 mg/dl (7-24)
[2019-06-21 08:00] VITALS: BP 104/70; BP 150/76
--- NOTE | 2019-06-21 09:00 | NUR ---
Air Conditioning Specialist in to see patient. No new needs or request at this time. He denies any home needs. When medically stable he will be discharged to home.
[2019-06-21 12:00] VITALS: BP 147/64
[2019-06-21 16:00] VITALS: BP 143/69
[2019-06-21 20:00] VITALS: BP 151/53
[2019-06-22] VITALS: BP 142/48
[2019-06-22 06:34] LABS: BUN 12 mg/dl (7-24); CHLORIDE 102 mmol/L (98-107); CREATININE 0.61 mg/dL (0.70-1.30); POTASSIUM 4.2 mmol/L (3.5-5.1); SODIUM 140 mmol/L (136-145)
[2019-06-22 08:00] VITALS: BP 122/70; BP 146/74
[2019-06-22 12:00] VITALS: BP 155/75
--- NOTE | 2019-06-22 12:11 | NUR ---
PT SITTING UP ON BEDSIDE. RESPS EASY ON 3LNC. DENIES SOB @ THIS TIME. NO DISTRESS NOTED.CALL LIGHT IN REACH.
[2019-06-22 16:00] VITALS: BP 126/47
[2019-06-22 20:00] VITALS: BP 144/58
[2019-06-23] VITALS: BP 140/57
--- NOTE | 2019-06-23 01:59 | NUR ---
PATIENT RESTING IN BED WITH NO S/S OF DISTRESS. BED IN LOWEST POSITION, CALL LIGHT IN REACH
[2019-06-23 05:52] LABS: BUN 12 mg/dl (7-24); CHLORIDE 101 mmol/L (98-107); CREATININE 0.65 mg/dL (0.70-1.30); POTASSIUM 4.1 mmol/L (3.5-5.1); SODIUM 141 mmol/L (136-145)
[2019-06-23 06:02] LABS: BASO % 0.7 % (0.0-1.0); EOS # 0.1 10*3/uL (0.0-0.4); EOS % 2.3 % (1.0-4.0); HEMATOCRIT 38.7 % (42.0-52.0); HEMOGLOBIN 12.5 g/dl (14.0-18.0); LYMPH # 1.4 10*3/uL (1.3-4.4); LYMPH % 22.6 % (27.0-41.0); MEAN CELL VOLUME 86.4 fl (80.0-94.0); MEAN CORPUSCULAR HGB 27.9 pg (27.0-31.0); MEAN CORPUSCULAR HGB CONC 32.3 g/dl (33.0-37.0); MEAN PLATELET VOLUME 10.8 fl (9.6-12.3); MONO # 0.6 10*3/uL (0.1-1.0); MONO % 10.2 % (3.0-9.0); NEUT # 3.8 10*3/uL (2.3-7.9); NEUT % 63.9 % (47.0-73.0); PLATELET COUNT AUTOMATED 253 10*3/uL (130-400); RED BLOOD COUNT 4.48 10*6/uL (4.50-5.90); RED CELL DISTRI WIDTH 13.8 % (0-14.5)
[2019-06-23 07:58] VITALS: BP 130/78
[2019-06-23 12:00] VITALS: BP 144/64
[2019-06-23 16:00] VITALS: BP 124/70
--- NOTE | 2019-06-23 19:49 | NUR ---
PATIENT AWAKE IN BED. DENIES ANY NEEDS AT THIS TIME. WILL MONITOR. CALL LIGHT IN REACH. PT REMINDED TO MEASURE URINE OUTPUT. PT VERBALIZES UNDERSTANDING.
[2019-06-23 20:00] VITALS: BP 132/80
--- NOTE | 2019-06-23 22:26 | NUR ---
PATIENT MEDICATED WITH PO MOTRIN FOR C/O RIGHT SIDED TOOTH PAIN RATED 8/10. PT STATES UPPER & LOWER TEETH ON RIGHT SIDE OF MOUTH CAUSING PAIN. WILL MONITOR EFFECIVENESSS. CALL LIGHT LEFT IN REACH.
[2019-06-24] VITALS: BP 132/53
--- NOTE | 2019-06-24 00:17 | NUR ---
EARLIER MOTRIN APPEARS EFFECTIVE. PT ASLEEP IN BED. NO S/S OF DISTRESS NOTED. WILL MONITOR. CALL LIGHT IN REACH.
--- NOTE | 2019-06-24 02:17 | NUR ---
PT BSG CHECKED AT THIS TIME--68. ORANGE JUICE, BIN CRACKERS, AND PEANUT BUTTER PROVIDED. PT ASYMPTOMATIC AT THIS TIME. WILL MONITOR. PT EDUCATED ABOUT S/S TO NOTIFY RN. WILL RECHECK BSG IN AM
--- NOTE | 2019-06-24 05:19 | NUR ---
BSG 114. AMARYL AND GLUCOPHAGE TO BE GIVEN CLOSER TO BREAKFAST PER PT REQUEST.
--- NOTE | 2019-06-24 05:58 | NUR ---
PO MOTRIN GIVEN FOR C/O PAIN IN TEETH ON RIGHT SIDE OF MOUTH. PT RATES PAIN 05/04. WILL MONITOR EFFECTIVENESS.
[2019-06-24 06:09] LABS: BUN 15 mg/dl (7-24); CHLORIDE 102 mmol/L (98-107); CREATININE 0.69 mg/dL (0.70-1.30); SODIUM 138 mmol/L (136-145)
[2019-06-24 06:22] LABS: BASO % 0.8 % (0.0-1.0); EOS # 0.1 10*3/uL (0.0-0.4); EOS % 2.1 % (1.0-4.0); HEMATOCRIT 39.8 % (42.0-52.0); HEMOGLOBIN 12.7 g/dl (14.0-18.0); LYMPH # 1.3 10*3/uL (1.3-4.4); LYMPH % 25.3 % (27.0-41.0); MEAN CELL VOLUME 86.3 fl (80.0-94.0); MEAN CORPUSCULAR HGB 27.5 pg (27.0-31.0); MEAN CORPUSCULAR HGB CONC 31.9 g/dl (33.0-37.0); MEAN PLATELET VOLUME 10.6 fl (9.6-12.3); MONO # 0.5 10*3/uL (0.1-1.0); MONO % 10.3 % (3.0-9.0); NEUT # 3.1 10*3/uL (2.3-7.9); NEUT % 60.7 % (47.0-73.0); PLATELET COUNT AUTOMATED 252 10*3/uL (130-400); RED BLOOD COUNT 4.61 10*6/uL (4.50-5.90); RED CELL DISTRI WIDTH 13.5 % (0-14.5); WHITE BLOOD COUNT 5.1 10*3/uL (4.8-10.8)
--- NOTE | 2019-06-24 11:00 | NUR ---
Government Clerk in to see patient. No new needs or request at this time. He denies any home needs. When medically stable he will be discharged to home. Discussed discharge planning with Dr. Ch, possible discharge today or tomorrow.
[2019-06-24 12:00] VITALS: BP 136/55
[2019-06-24] MEDS ORDERED: AMOXICILLIN500 M2 PO (15:27)
[2019-06-24] MEDS ORDERED: TORSEMIDE20 MG PO (15:52)
[2019-06-24] MEDS ORDERED: TORSEMIDE100 MG PO (15:52)
[2019-06-24 16:00] VITALS: BP 144/61
--- NOTE | 2019-06-24 17:17 | NUR ---
Discharge instructions reviewed with patient/family. Patient receptive and verbalizes understanding. Follow-up care arranged. Written instructions given to patient/family. YISEL SHINE
== END 2019-06-24 17:10 | disposition home or self-care (01) | DRG 194 ==
LOC: ED 22:05 → 4E 06-20 02:12 → EDHOLD 06-20 02:12 → 4E 06-20 02:14
PROVIDERS: Emergency Medicine; Family Medicine; Internal Medicine Cardiovascular Disease; Internal Medicine Nephrology; Student in an Organized Health Care Education/Training Program; ADMIT Internal Medicine
DX: I11.0 Hypertensive heart disease with heart failure (principal); I50.33 Acute on chronic diastolic (congestive) heart failure; E43 Unspecified severe protein-calorie malnutrition; R65.10 Systemic inflammatory response syndrome (SIRS) of non-infectious origin without acute organ dysfunction; J96.11 Chronic respiratory failure with hypoxia; E83.51 Hypocalcemia; E66.2 Morbid (severe) obesity with alveolar hypoventilation; I50.813 Acute on chronic right heart failure; E03.9 Hypothyroidism, unspecified; I27.81 Cor pulmonale (chronic); K21.9 Gastro-esophageal reflux disease without esophagitis; F17.220 Nicotine dependence, chewing tobacco, uncomplicated; I27.20 Pulmonary hypertension, unspecified; I42.0 Dilated cardiomyopathy; E78.5 Hyperlipidemia, unspecified; K02.9 Dental caries, unspecified; F90.9 Attention-deficit hyperactivity disorder, unspecified type; D64.9 Anemia, unspecified; H92.01 Otalgia, right ear; E11.65 Type 2 diabetes mellitus with hyperglycemia; Z99.81 Dependence on supplemental oxygen; Z71.6 Tobacco abuse counseling; Z88.6 Allergy status to analgesic agent; Z83.3 Family history of diabetes mellitus; Z81.3 Family history of other psychoactive substance abuse and dependence; Z79.899 Other long term (current) drug therapy; Z79.4 Long term (current) use of insulin; Z68.44 Body mass index [BMI] 60.0-69.9, adult

== ENCOUNTER 2019-08-06 15:21 | Inpatient (IN) | payer OTHER ==
[~2019-08-06] VITALS: Ht 172.7 cm; Wt 168.3 kg
[~2019-08-06 15:21] MED LIST changes: +ADMELOG100 UNIT/1 SQ; +AMOXICILLIN500 M2 PO; +Oscal,Oyster S500 MG PO; +TORSEMIDE100 MG PO; +TORSEMIDE20 MG PO
[2019-08-06 15:23] VITALS: BP 143/73
[2019-08-06 17:09] LABS: BASO % 0.5 % (0.0-1.0); EOS # 0.1 10*3/uL (0.0-0.4); EOS % 1.5 % (1.0-4.0); HEMATOCRIT 36.4 % (42.0-52.0); HEMOGLOBIN 12.3 g/dl (14.0-18.0); LYMPH # 1.2 10*3/uL (1.3-4.4); LYMPH % 14.4 % (27.0-41.0); MEAN CELL VOLUME 82.7 fl (80.0-94.0); MEAN CORPUSCULAR HGB CONC 33.8 g/dl (33.0-37.0); MEAN PLATELET VOLUME 11.2 fl (9.6-12.3); MONO # 0.8 10*3/uL (0.1-1.0); MONO % 9.1 % (3.0-9.0); NEUT # 6.3 10*3/uL (2.3-7.9); NEUT % 73.9 % (47.0-73.0); PLATELET COUNT AUTOMATED 258 10*3/uL (130-400); RED CELL DISTRI WIDTH 13.2 % (0-14.5); WHITE BLOOD COUNT 8.5 10*3/uL (4.8-10.8)
[2019-08-06 17:21] LABS: ALBUMIN 2.7 gm/dl (3.1-4.5); ALKALINE PHOSPHATASE 90 U/L (45-117); BUN 22 mg/dl (7-24); CHLORIDE 96 mmol/L (98-107); CREATININE 1.42 mg/dL (0.70-1.30); POTASSIUM 3.7 mmol/L (3.5-5.1); SGOT/AST 16 IU/L (3-35); SGPT/ALT 20 U/L (12-78); SODIUM 132 mmol/L (136-145); TOTAL PROTEIN 6.9 gm/dL (6.4-8.2)
--- NOTE | 2019-08-06 17:35 | NUR ---
PT REQUESTING SOMETHING FOR PAIN WALE FRANCIS NOTIFIED
--- NOTE | 2019-08-06 18:00 | NUR ---
PAIN MEDICATION DID NOT HELP PER PT CAR WORKER PENNY NOTIFIED DOES NOT WANT TO GIVE ANYTHING FURTHER AT THIS TIME PT IS ALREADY ADMITTED.
[2019-08-06 18:13] VITALS: BP 150/80
--- NOTE | 2019-08-06 18:15 | NUR ---
REFUSED PICTURES OF SCABS HAS SCATTERED SCABS RIGHT CHEST BOTH ARMS AND BACK UNSURE HOW HE OBTAINED THEM
--- NOTE | 2019-08-06 18:20 | NUR ---
A 34, admitted to , under the services of CHRIS Thomas MD with a diagnosis of ARF,HYPERGLYCEMIA,DENTAL ABCESS. Chief complaint is L DENTAL/FACE PAIN EDEAMA. Patient arrived via stretcher from ER. Monitor applied. Initial assessment completed. Vital signs taken and recorded. CHRIS THOMAS MD notified of admission to the unit. Orders received. See assessment for past medical history, medications and allergies. Patient and/or family oriented to unit. [facility] visitation policy reviewed. Clothing/patient valuable form completed. YAKELIN RAMIREZ
[2019-08-06 18:25] VITALS: BP 138/62
--- NOTE | 2019-08-06 18:32 | NUR ---
CALL PLACED TO [facility], AWAITING FAXED LIST.
[2019-08-06] MEDS ORDERED: ADMELOG100 UNIT/1 SQ (18:41)
[2019-08-06] MEDS ORDERED: IBU800 M1 PO (18:46)
--- NOTE | 2019-08-06 18:52 | NUR ---
MED REC UPDATED WITH LIST FROM PHARMACY.
--- NOTE | 2019-08-06 18:53 | NUR ---
DR MEEK MADE AWARE OF UPDATED MED REC.
--- NOTE | 2019-08-06 18:54 | NUR ---
PT REFUSING GRIPPER MACHINE OPERATOR. DR MEEK MADE AWARE.
[2019-08-06 20:00] VITALS: BP 143/57
--- NOTE | 2019-08-06 20:22 | NUR ---
PT MEDICATED WITH PO PERCOCET PER PRN ORDER FOR C/O PAIN IN L SIDE FACE/JAW/TEETH RATED 10/10. PT STATES TORADOL DIDN'T TOUCH HIS PAIN. WILL MONITOR EFFECTIVENESS. PT IS REFUSING GENERAL TELLER AND REFUSING FLU VACCINE.
--- NOTE | 2019-08-06 20:52 | NUR ---
NOTIFIED OF CONSULT. STATES SHE ALREADY SPOKE WITH AND WILL SEE THE PATIENT TOMORROW.
--- NOTE | 2019-08-06 21:46 | NUR ---
NOTIFIED OF BSG 551 & RN AWAITING STAT GLUCOSE RESULTS FROM LAB. INSTRUCTED TO GIVE 22 UNITS PER SLIDING SCALE
--- NOTE | 2019-08-06 23:40 | NUR ---
NOTIFIED OF REPEAT SUGAR 431. INSTRUCTED TO GIVE ADDITIONAL 22 UNITS.
[2019-08-07] VITALS: BP 155/70
--- NOTE | 2019-08-07 01:49 | NUR ---
NSG NOW 318. IV FLUIDS INFUSING PER ORDER.
--- NOTE | 2019-08-07 03:04 | NUR ---
PT MEDICATED WITH PO NORCO PER PRN ORDER FOR C/O PAIN IN L SIDE FACE/DENTAL PAIN RATED 10/10. WILL MONITOR EFFECTIVENESS. IV FLUIDS/ABX INFUSING PER ORDER.
--- NOTE | 2019-08-07 03:52 | NUR ---
EARLIER MEDICATIONS APPEAR EFFECTIVE. PT ASLEEP IN BED. RESPIRATIONS EASY. NO S/S OF DISTRESS NOTED. IVF/IV ABX INFUSING PER ORDER.
--- NOTE | 2019-08-07 05:16 | NUR ---
NOTIFIED OF PT'S C/O PAIN WITHOUT RELIEF FROM PERCOCET. NEW ORDERS TO FOLLOW.
--- NOTE | 2019-08-07 05:49 | NUR ---
IV MORPHINE ADMINISTERED SLOWLY PER ONE TIME ORDER. WILL MONITOR EFFECTIVENESS. CALL LIGHT IN REACH.
[2019-08-07 06:41] LABS: BASO % 0.6 % (0.0-1.0); EOS # 0.2 10*3/uL (0.0-0.4); EOS % 2.2 % (1.0-4.0); HEMATOCRIT 33.7 % (42.0-52.0); HEMOGLOBIN 11.4 g/dl (14.0-18.0); LYMPH # 1.5 10*3/uL (1.3-4.4); LYMPH % 20.5 % (27.0-41.0); MEAN CELL VOLUME 83.2 fl (80.0-94.0); MEAN CORPUSCULAR HGB 28.1 pg (27.0-31.0); MEAN CORPUSCULAR HGB CONC 33.8 g/dl (33.0-37.0); MEAN PLATELET VOLUME 10.9 fl (9.6-12.3); MONO # 0.7 10*3/uL (0.1-1.0); MONO % 10.4 % (3.0-9.0); NEUT # 4.7 10*3/uL (2.3-7.9); NEUT % 65.6 % (47.0-73.0); PLATELET COUNT AUTOMATED 207 10*3/uL (130-400); RED BLOOD COUNT 4.05 10*6/uL (4.50-5.90); RED CELL DISTRI WIDTH 13.2 % (0-14.5); WHITE BLOOD COUNT 7.1 10*3/uL (4.8-10.8)
[2019-08-07 07:05] LABS: ALBUMIN 2.4 gm/dl (3.1-4.5); ALKALINE PHOSPHATASE 74 U/L (45-117); BUN 22 mg/dl (7-24); CHLORIDE 98 mmol/L (98-107); CREATININE 1.07 mg/dL (0.70-1.30); PHOSPHOROUS 3.9 mg/dL (2.5-4.9); POTASSIUM 2.9 mmol/L (3.5-5.1); SGOT/AST 10 IU/L (3-35); SGPT/ALT 19 U/L (12-78); SODIUM 134 mmol/L (136-145); TOTAL PROTEIN 6.2 gm/dL (6.4-8.2)
[2019-08-07 08:00] VITALS: BP 151/62
--- NOTE | 2019-08-07 09:00 | NUR ---
Magneto Repairer in to talk to patient. Patient states lives at home alone with his family checking in on him. There are 0 steps in the home. Physician: Dr. 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 He lives at home alone with his family checking in on him. He is independent in his ADLs and ambulates with a cane. Discussed home health care services and he denies any home needs. When medically stable he will be discharged to home. His sister will provide transportation on discharge. NANNETTE GONZALEZ
--- NOTE | 2019-08-07 10:47 | NUR ---
PERCOCET GIVEN FOR PAIN TO LEFT SIFE OF FACE/JAW. PAIN ACHING RATED 10/10. CALL LIGHT IN REACH. WILL MONITOR.
--- NOTE | 2019-08-07 11:36 | NUR ---
PER PT, PERCOCET HAS HELPED. PAIN RATED 6/10. CURRENTLY LAYING IN BED IN RT SIDE. NO FURTHER COMPLAINTS.
[2019-08-07 12:00] VITALS: BP 141/60
--- NOTE | 2019-08-07 15:17 | NUR ---
Shift chart check completed.24 HR chart check completed.
--- NOTE | 2019-08-07 15:56 | NUR ---
PT C/O LEFT FACIAL PAIN. HIS FACE IS RED AND SWOLLEN. DENIES ANY BAD TASTE IN HIS MOUTH. IV FLUIDS CONTINUE. PT IS ORDERED TO BE MONITORED BUT HE REFUSES TO WEAR IT. THIS IS UNCHANGED PER SHIFT REPORT.
[2019-08-07 16:00] VITALS: BP 153/75
--- NOTE | 2019-08-07 16:22 | NUR ---
MEDICATED WITH PERCOCET FOR FACE PAIN.
--- NOTE | 2019-08-07 17:13 | NUR ---
DR HOLLY VISITED, MADE AWARE PT NOT WEARING HIS BSA OFFICER, MAKING HIM NON-MONITORED PT.
--- NOTE | 2019-08-07 17:50 | NUR ---
PT SHOWERED AND BACK TO SIT AT THE SIDE OF THE BED. MEDICATED AT 1737 WITH DILAUDID 0.25MG IV SLOWLY FOR PAIN PER DR HOLLY'S ORDER.
--- NOTE | 2019-08-07 19:44 | NUR ---
PATIENT REQUESTING PAIN MEDICATION FOR LEFT FACIAL PAIN RATED 10/10 ON 0/10 SCALE. DILAUDID 0.25 MG ADMINISTERED PRESCRIBED. WILL MONITOR FOR EFFECTIVENESS.
[2019-08-07 20:00] VITALS: BP 157/77
--- NOTE | 2019-08-07 20:44 | NUR ---
PATIENT STILL C/O LEFT FACIAL PAIN RATED 9/10 ON 0/10 SCALE. WILL FOLLOW UP WITH DR HOLLY.
--- NOTE | 2019-08-07 21:05 | NUR ---
PT C/O LEFT FACIAL PAIN RATED 10/10 ON 0/[address] HOLLY CALLED- NEW ORDER RECEIVED.
--- NOTE | 2019-08-07 21:22 | NUR ---
PATIENT MEDICATED WITH 0.5MG DILAUDID RATED 9/10 ON 0/10 SCALE. WILL MONITOR FOR EFFECTIVENESS.
--- NOTE | 2019-08-07 22:13 | NUR ---
PERCOCET ADMINISTERED FOR LEFT FACIAL PAIN RATED 9/10 ON 0/10 SCALE. WILL MONITOR FOR EFFECTIVENESS.
--- NOTE | 2019-08-07 23:13 | NUR ---
PATIENT RESTING IN BED WATCHING TV. RATES PAIN 7/10 ON 0/10 SCALE. WILL MONITOR.
[2019-08-08] VITALS: BP 131/55
--- NOTE | 2019-08-08 02:41 | NUR ---
DR HEAD CALLED WITH PATIENT'S PAIN LEVEL 10/10 ON 0/10 SCALE. NEW ORDER RECEIVED- SEE ORDERS.
--- NOTE | 2019-08-08 02:55 | NUR ---
PATIENT REQUESTING PAIN MEDICATION FOR LEFT FACE PAIN RATED 10/10 ON 0/10 SCALE. DILAUDID 0.5MG ADMINISTERED PRESCRIBED. WILL MONITOR FOR EFFECTIVENESS.
--- NOTE | 2019-08-08 03:49 | NUR ---
PATIENT REQUESTING PAIN MEDICATION FOR LEFT FACIAL PAIN RATED 9/10 ON 0/10 SCALE. PERCOCET ADMINISTERED PRESCRIBED. WILL MONITOR FOR EFFECTIVENESS.
--- NOTE | 2019-08-08 03:55 | NUR ---
PATIENT STATES THAT LEFT FACIAL PAIN IS RATED 8/10 ON 0/10 SCALE AFTER DILAUDID ADMINISTERED. WILL MONITOR.
--- NOTE | 2019-08-08 04:44 | NUR ---
PATIENT SITTING IN BED, WATCHING TV AT THIS TIME. ONLY COMPLAINT IS PAIN IN HIS LEFT FACIAL AREA- REMAINS RED, HARD, AND SWOLLEN. WILL MONITOR.CALL LIGHT IN REACH.
[2019-08-08 08:00] VITALS: BP 126/53
--- NOTE | 2019-08-08 09:00 | NUR ---
[employer] Sprayer in to see patient. No new needs or request at this time. he denies any home needs. When medically stable he will be discharged to home. Per the multidisciplinary discharge planning meeting he is being diuresed and a dental consult.
[2019-08-08 09:51] LABS: BASO # 0.1 10*3/uL (0.0-0.1); BASO % 0.9 % (0.0-1.0); EOS # 0.2 10*3/uL (0.0-0.4); EOS % 2.4 % (1.0-4.0); HEMATOCRIT 34.1 % (42.0-52.0); LYMPH # 1.3 10*3/uL (1.3-4.4); LYMPH % 20.1 % (27.0-41.0); MEAN CORPUSCULAR HGB 27.4 pg (27.0-31.0); MEAN CORPUSCULAR HGB CONC 32.3 g/dl (33.0-37.0); MEAN PLATELET VOLUME 11.1 fl (9.6-12.3); MONO # 0.5 10*3/uL (0.1-1.0); MONO % 8.2 % (3.0-9.0); NEUT # 4.4 10*3/uL (2.3-7.9); NEUT % 67.3 % (47.0-73.0); NUCLEATED RED BLOOD CELL 0.3 % (0.0-0.0); PLATELET COUNT AUTOMATED 241 10*3/uL (130-400); RED BLOOD COUNT 4.01 10*6/uL (4.50-5.90); RED CELL DISTRI WIDTH 13.4 % (0-14.5); WHITE BLOOD COUNT 6.6 10*3/uL (4.8-10.8)
[2019-08-08 10:04] LABS: BUN 17 mg/dl (7-24); CHLORIDE 99 mmol/L (98-107); CREATININE 0.98 mg/dL (0.70-1.30); IRON 64 ug/dL (65-175); TOTAL IRON BINDING CAPACITY 255 ug/dl (250-450)
[2019-08-08 10:11] LABS: SODIUM 132 mmol/L (136-145)
[2019-08-08 10:18] LABS: POTASSIUM 4.5 mmol/L (3.5-5.1)
[2019-08-08 11:37] LABS: FERRITIN 156.2 ng/mL (22.0-322.0)
[2019-08-08 12:00] VITALS: BP 130/76
[2019-08-08 16:00] VITALS: BP 156/51
--- NOTE | 2019-08-08 16:22 | NUR ---
Medicated with percocet per prn order for complaints of pain in mouth.
--- NOTE | 2019-08-08 17:20 | NUR ---
States that medication was effective.
[2019-08-08 20:00] VITALS: BP 153/71
[2019-08-09] VITALS: BP 163/51
[2019-08-09 07:27] LABS: BASO # 0.1 10*3/uL (0.0-0.1); BASO % 0.8 % (0.0-1.0); EOS # 0.2 10*3/uL (0.0-0.4); EOS % 2.5 % (1.0-4.0); HEMATOCRIT 32.7 % (42.0-52.0); HEMOGLOBIN 10.9 g/dl (14.0-18.0); LYMPH # 1.2 10*3/uL (1.3-4.4); LYMPH % 20.5 % (27.0-41.0); MEAN CELL VOLUME 85.2 fl (80.0-94.0); MEAN CORPUSCULAR HGB 28.4 pg (27.0-31.0); MEAN CORPUSCULAR HGB CONC 33.3 g/dl (33.0-37.0); MEAN PLATELET VOLUME 10.5 fl (9.6-12.3); MONO # 0.6 10*3/uL (0.1-1.0); MONO % 9.7 % (3.0-9.0); NEUT # 3.8 10*3/uL (2.3-7.9); NEUT % 64.1 % (47.0-73.0); NUCLEATED RED BLOOD CELL 0.5 % (0.0-0.0); PLATELET COUNT AUTOMATED 219 10*3/uL (130-400); RED BLOOD COUNT 3.84 10*6/uL (4.50-5.90); RED CELL DISTRI WIDTH 13.6 % (0-14.5); WHITE BLOOD COUNT 5.9 10*3/uL (4.8-10.8)
[2019-08-09 07:36] LABS: BUN 15 mg/dl (7-24); CHLORIDE 104 mmol/L (98-107); CREATININE 0.75 mg/dL (0.70-1.30); SODIUM 137 mmol/L (136-145)
[2019-08-09 08:00] VITALS: BP 166/68
--- NOTE | 2019-08-09 10:08 | NUR ---
PATIENT C/O LEFT SIDED FACIAL PAIN. VISIBLE SWELLING TO LEFT CHEEK. CHEEK PINKISH IN COLOR. RATE 8/10 ON PAIN SCALE. MEDICATED WITH PERCOCET PER PRN ORDER. WILL CONTINUE TO MONITOR.
[2019-08-09 12:00] VITALS: BP 146/96
[2019-08-09] MEDS ORDERED: TORSEMIDE20 MG PO (12:45)
--- NOTE | 2019-08-09 12:48 | NUR ---
DR. QUESADA NOTIFED OF CLARIFIED OF [facility] HOME MED
--- NOTE | 2019-08-09 15:04 | NUR ---
Nutritional Support Services Note: Pt declined diet instruction. States he will continue to eat what he wants. Dx of dental abscess, encouraged softer foods. Pt not interested. Eating well. Encouraged better compliance to diet. Ht. 5'8 Wt.380#. Will follow if needed. Susan Rajan Rdn Ld
[2019-08-09 16:00] VITALS: BP 152/66
--- NOTE | 2019-08-09 16:28 | NUR ---
PT MEDICATED WITH PERCOCET PERCOCET PER ORDER FOR 8/10 JAW/FACE PAIN. WILL MONITOR EFFECTIVENESS.
--- NOTE | 2019-08-09 17:38 | NUR ---
PER PT, "MEDICATION HELPED A LITTLE BIT"
[2019-08-09 20:00] VITALS: BP 158/79
[2019-08-10] VITALS: BP 160/62
[2019-08-10 06:28] LABS: HEMATOCRIT 34.4 % (42.0-52.0); HEMOGLOBIN 11.1 g/dl (14.0-18.0); MEAN CELL VOLUME 85.1 fl (80.0-94.0); MEAN CORPUSCULAR HGB 27.5 pg (27.0-31.0); MEAN CORPUSCULAR HGB CONC 32.3 g/dl (33.0-37.0); MEAN PLATELET VOLUME 10.5 fl (9.6-12.3); NUCLEATED RED BLOOD CELL 0.1 10*3/uL (0.0-0.0); NUCLEATED RED BLOOD CELL 1.6 % (0.0-0.0); PLATELET COUNT AUTOMATED 243 10*3/uL (130-400); RED BLOOD COUNT 4.04 10*6/uL (4.50-5.90); RED CELL DISTRI WIDTH 13.4 % (0-14.5); WHITE BLOOD COUNT 6.3 10*3/uL (4.8-10.8)
--- NOTE | 2019-08-10 06:39 | NUR ---
dr patel in to see patient at this time. new orders recieved
[2019-08-10 06:40] LABS: BUN 14 mg/dl (7-24); CHLORIDE 100 mmol/L (98-107); CREATININE 0.76 mg/dL (0.70-1.30); PHOSPHOROUS 4.6 mg/dL (2.5-4.9); POTASSIUM 3.9 mmol/L (3.5-5.1); SODIUM 138 mmol/L (136-145)
[2019-08-10 07:19] LABS: BASOPHILS 1 % (0-1); PLATELET SUFFICIENCY NORMAL (NORMAL); POLYCHROMASIA SLIGHT; SPHEROCYTES FEW; STOMATOCYTE FEW; TOTAL CELLS COUNTED 100 #CELLS
[2019-08-10 08:00] VITALS: BP 158/89
--- NOTE | 2019-08-10 11:57 | NUR ---
PATIENT MEDICATED WITH PO PECROCET PER ORDER AT THIS TIME FOR COMPLAINTS OF PAIN IN LEFT FACE 06/04. WILL MONITOR FOR EFFECTIVENESS.
[2019-08-10 12:00] VITALS: BP 142/59; BP 144/70
[2019-08-10 16:00] VITALS: BP 150/72
[2019-08-10 20:00] VITALS: BP 133/69
[2019-08-11] VITALS: BP 134/55
--- NOTE | 2019-08-11 05:10 | NUR ---
PATIENT MEDICATED WITH PRN PERCOCET FOR MOUTH PAIN. WILL CHECK EFFECTIVENESS.
[2019-08-11 08:00] VITALS: BP 147/71
[2019-08-11 12:00] VITALS: BP 149/65
[2019-08-11 16:00] VITALS: BP 156/53
--- NOTE | 2019-08-11 19:24 | NUR ---
PT C/O LEFT FACIAL PAIN 6/10 AT THIS TIME AND MEDICATED WITH PERCOCET PER ORDER. WILL MONITOR FOR EFFECTIVENESS.
[2019-08-11 20:00] VITALS: BP 144/88
--- NOTE | 2019-08-11 20:30 | NUR ---
PATIENT SITTING UP AT THE SIDE OF THE BED COLORING. PRN PAIN MEDICATION EFFECTIVE AT MANAGING PAIN. LUNG SOUNDS DIMINISHED THROUGHOUT. NORMOACTIVE BS X4. PATIENT WANTING TO SHOWER. NO OTHER COMPLAINTS AT THIS TIME. CALL LIGHT WITHIN REACH.
[2019-08-12] VITALS: BP 150/47
--- NOTE | 2019-08-12 01:50 | NUR ---
24 HR chart check completed.
--- NOTE | 2019-08-12 05:05 | NUR ---
PATIENT MEDICATED WITH PRN PERCOCET FOR PAIN IN THE LEFT SIDE OF HIS FACE. WILL MONITOR FOR EFFECTIVENESS.
--- NOTE | 2019-08-12 05:55 | NUR ---
PATIENT ASLEEP. PRN PERCOCET EFFECTIVE.
--- NOTE | 2019-08-12 07:15 | NUR ---
REPORT RECEIVED FROM YOGESH DONOVAN. PT IS AWAKE AND SITTING AT BEDSIDE COLORING. PT VOICES NO COMPLAINTS AT THIS TIME. PT RESPIRATIONS EASY AND UNLABORED. CALL LIGHT IN REACH.
--- NOTE | 2019-08-12 07:51 | NUR ---
VITAL SIGNS STABLE. HEART SOUNDS NORMAL. LUNGS CLEAR THROUGHOUT. ACTIVE BS X4. NON TENDER NON DISTENDED. <3 CAPILLARY REFILL. SKIN TURGUR NON TENTING. SKIN PINK, WARM AND DRY. PT SCRATCHING AT OPEN AREA ON RIGHT ARM AND SHOULDER, CAUSING SMALL OPEN AREAS. NO BLEEDING AT THIS TIME. PT HAS NO COMPLAINTS OF PAIN AT THIS TIME. A&OX4. AMY. PT IS PLEASANT, AT BEDSIDE TABLE COLORING AT THIS TIME. WILL CONTINUE TO ASSESS. PALMA TAVERASCC
[2019-08-12 08:00] VITALS: BP 110/48
--- NOTE | 2019-08-12 10:30 | NUR ---
Theatre Manager in to see patient. No new needs or request at this time. he denies any home needs. When medically stable he will be discharged to home.
--- NOTE | 2019-08-12 11:21 | NUR ---
PT LEFT AN IV DRY AND INTACT. PT REFUSED IV CATH CHANGE AT THIS TIME. WILL CONTINUE TO ASSESS. PALMA TAVERASCC
[2019-08-12 11:40] VITALS: BP 130/56
--- NOTE | 2019-08-12 13:31 | NUR ---
PT COMPLAINS OF PAIN 6/10 "LEFT SIDE OF FACE". SMALL AMOUNT OF SWELLING LEFT CHEEK. PERCOCET 1 PO GIVEN FOR PAIN. WILL CONTINUE TO ASSESS. STEPHANIE WALDROPCC
[2019-08-12 16:00] VITALS: BP 147/50
--- NOTE | 2019-08-12 19:30 | NUR ---
24 HOUR CHART CHECK COMPLETED
--- NOTE | 2019-08-12 19:40 | NUR ---
PATIENT MEDICATED FOR JAW PAIN 05/04 AT THIS TIME, SEE EMAR.
[2019-08-12 20:00] VITALS: BP 147/73
--- NOTE | 2019-08-12 20:00 | NUR ---
PATIENT ASSESSMENT COMPLETED WITHOUT INCIDENT. PATIENT REQUESTING PAIN MEDICATION FOR 8/10 PAIN IN HIS LEFT JAW FROM ABCESSED TOOTH, PATIENT MEDICATED. PATIENT DENIES ANY OTHER NEEDS AT THIS TIME. CALL LIGHT WITHIN REACH. VISITOR AT BEDSIDE. WILL CONTINUE TO MONITOR.
--- NOTE | 2019-08-12 20:30 | NUR ---
PATIENT STATED PAIN IS NOW A 5/10 AFTER PAIN MEDICATION
[2019-08-13] VITALS: BP 147/78
--- NOTE | 2019-08-13 01:50 | NUR ---
PATIENT MEDICATED FOR PAIN 9/10 IN HIS LEFT JAW, SEE EMAR.
--- NOTE | 2019-08-13 02:50 | NUR ---
PATIENT STATED PAIN IS NOW A 5/10 AFTER PAIN MEDICATION
--- NOTE | 2019-08-13 04:00 | NUR ---
PATIENT RESTING IN A POSITION OF COMFORT IN BED AT THIS TIME. NO SIGNS OR SYMPTOMS OF DISTRESS NOTED AT THIS TIME. IV ANTIBIOTIC INFUSING AT THIS TIME. CALL LIGHT WITHIN REACH. WILL CONTINUE TO MONITOR.
[2019-08-13 06:52] LABS: HEMATOCRIT 34.7 % (42.0-52.0); HEMOGLOBIN 10.8 g/dl (14.0-18.0); MEAN CELL VOLUME 89.9 fl (80.0-94.0); MEAN CORPUSCULAR HGB CONC 31.1 g/dl (33.0-37.0); MEAN PLATELET VOLUME 10.3 fl (9.6-12.3); NUCLEATED RED BLOOD CELL 0.1 10*3/uL (0.0-0.0); NUCLEATED RED BLOOD CELL 1.5 % (0.0-0.0); PLATELET COUNT AUTOMATED 257 10*3/uL (130-400); RED BLOOD COUNT 3.86 10*6/uL (4.50-5.90); RED CELL DISTRI WIDTH 14.2 % (0-14.5); WHITE BLOOD COUNT 7.4 10*3/uL (4.8-10.8)
[2019-08-13 07:13] LABS: BUN 13 mg/dl (7-24); CHLORIDE 102 mmol/L (98-107); CREATININE 0.92 mg/dL (0.70-1.30); POTASSIUM 3.6 mmol/L (3.5-5.1); SODIUM 140 mmol/L (136-145)
[2019-08-13 07:56] LABS: POLYCHROMASIA SLIGHT; TOTAL CELLS COUNTED 100 #CELLS
[2019-08-13 07:57] LABS: PLATELET SUFFICIENCY NORMAL (NORMAL)
[2019-08-13 08:00] VITALS: BP 148/55
--- NOTE | 2019-08-13 10:30 | NUR ---
Label Printing Machinist in to see patient. No new needs or request at this time. He denies any home needs. When medically stable he will be discharged to home. Per multidisciplinary discharge planning meeting plan is to discharge to home today.
[2019-08-13 12:00] VITALS: BP 150/59
[2019-08-13] MEDS ORDERED: AUGMENTIN 875875 MG PO (14:21)
--- NOTE | 2019-08-13 15:03 | NUR ---
Discharge instructions reviewed with patient/family. Patient receptive and verbalizes understanding. Follow-up care arranged. Written instructions given to patient/family. MAGGY GUERRERO
== END 2019-08-13 17:54 | disposition home or self-care (01) | DRG 383 ==
LOC: ED 15:21 → 5E 17:34 → EDHOLD 17:34 → 5E 17:53
PROVIDERS: Internal Medicine; Nurse Practitioner Family; Student in an Organized Health Care Education/Training Program; ADMIT Internal Medicine
DX: L03.211 Cellulitis of face (principal); N17.0 Acute kidney failure with tubular necrosis; K02.9 Dental caries, unspecified; E87.6 Hypokalemia; E03.9 Hypothyroidism, unspecified; E66.2 Morbid (severe) obesity with alveolar hypoventilation; I50.32 Chronic diastolic (congestive) heart failure; J96.11 Chronic respiratory failure with hypoxia; E43 Unspecified severe protein-calorie malnutrition; E87.1 Hypo-osmolality and hyponatremia; D64.9 Anemia, unspecified; I11.0 Hypertensive heart disease with heart failure; F90.9 Attention-deficit hyperactivity disorder, unspecified type; K21.9 Gastro-esophageal reflux disease without esophagitis; E78.5 Hyperlipidemia, unspecified; E55.9 Vitamin D deficiency, unspecified; E11.65 Type 2 diabetes mellitus with hyperglycemia; Z79.4 Long term (current) use of insulin; Z71.6 Tobacco abuse counseling; Z88.5 Allergy status to narcotic agent; Z79.84 Long term (current) use of oral hypoglycemic drugs; Z83.3 Family history of diabetes mellitus; Z68.43 Body mass index [BMI] 50.0-59.9, adult

== ENCOUNTER 2019-11-14 18:47 | Emergency (ER) | payer OTHER ==
[~2019-11-14] VITALS: Ht 172.7 cm; Wt 163.3 kg
[~2019-11-14 18:47] MED LIST changes: +AUGMENTIN 875875 MG PO; +IBU800 M1 PO
[2019-11-14] MEDS ORDERED: NAPROSYN500 MG PO (20:55)
== END 2019-11-14 21:07 | disposition home or self-care (01) ==
LOC: ED 18:47
DX: M54.5 Low back pain (principal); I11.0 Hypertensive heart disease with heart failure; I50.9 Heart failure, unspecified; E11.9 Type 2 diabetes mellitus without complications; E66.01 Morbid (severe) obesity due to excess calories; E78.00 Pure hypercholesterolemia, unspecified; Z88.6 Allergy status to analgesic agent; Z79.899 Other long term (current) drug therapy; Z79.2 Long term (current) use of antibiotics; Z79.4 Long term (current) use of insulin; Z86.14 Personal history of Methicillin resistant Staphylococcus aureus infection; Z87.891 Personal history of nicotine dependence

== ENCOUNTER 2019-12-06 23:51 | Emergency (ER) | payer OTHER ==
[~2019-12-06] VITALS: Ht 172.7 cm; Wt 163.3 kg
[~2019-12-06 23:51] MED LIST changes: +NAPROSYN500 MG PO
[2019-12-07 00:39] LABS: BILIRUBIN NEGATIVE (NEGATIVE); BLOOD TRACE-INTACT (NEGATIVE); CLARITY CLEAR (CLEAR); COLOR STRAW (YELLOW); GLUCOSE 2+ (NEGATIVE); KETONE NEGATIVE (NEGATIVE); LEUKO ESTERASE NEGATIVE (NEGATIVE); NITRITE NEGATIVE (NEGATIVE); UROBILINOGEN 0.2 E.U./dl (0.2-1.0)
[2019-12-07 00:44] LABS: BACTERIA 1+
[2019-12-07 01:39] LABS: BASO # 0.1 10*3/uL (0.0-0.1); BASO % 0.8 % (0.0-1.0); EOS # 0.1 10*3/uL (0.0-0.4); EOS % 0.9 % (1.0-4.0); HEMATOCRIT 41.5 % (42.0-52.0); HEMOGLOBIN 13.8 g/dl (14.0-18.0); LYMPH % 22.1 % (27.0-41.0); MEAN CELL VOLUME 84.9 fl (80.0-94.0); MEAN CORPUSCULAR HGB 28.2 pg (27.0-31.0); MEAN CORPUSCULAR HGB CONC 33.3 g/dl (33.0-37.0); MEAN PLATELET VOLUME 10.6 fl (9.6-12.3); MONO # 0.6 10*3/uL (0.1-1.0); MONO % 6.9 % (3.0-9.0); NEUT # 6.2 10*3/uL (2.3-7.9); PLATELET COUNT AUTOMATED 330 10*3/uL (130-400); RED BLOOD COUNT 4.89 10*6/uL (4.50-5.90); RED CELL DISTRI WIDTH 13.3 % (0-14.5); WHITE BLOOD COUNT 8.9 10*3/uL (4.8-10.8)
[2019-12-07 01:56] LABS: ALBUMIN 3.3 gm/dl (3.1-4.5); ALKALINE PHOSPHATASE 95 U/L (45-117); BUN 29 mg/dl (7-24); CHLORIDE 99 mmol/L (98-107); CREATININE 1.29 mg/dL (0.70-1.30); POTASSIUM 3.6 mmol/L (3.5-5.1); SGOT/AST 13 IU/L (3-35); SGPT/ALT 28 U/L (12-78); SODIUM 137 mmol/L (136-145); TROPONIN I < 0.015 ng/ml (<0.045)
== END 2019-12-07 06:05 | disposition home or self-care (01) ==
LOC: ED 23:51
PROVIDERS: Emergency Medicine Emergency Medical Services
DX: E11.65 Type 2 diabetes mellitus with hyperglycemia (principal); E66.01 Morbid (severe) obesity due to excess calories; I11.0 Hypertensive heart disease with heart failure; I50.9 Heart failure, unspecified; E11.9 Type 2 diabetes mellitus without complications; K21.9 Gastro-esophageal reflux disease without esophagitis; E03.9 Hypothyroidism, unspecified; F17.220 Nicotine dependence, chewing tobacco, uncomplicated; Z68.43 Body mass index [BMI] 50.0-59.9, adult; Z91.19 Patient's noncompliance with other medical treatment and regimen; Z88.6 Allergy status to analgesic agent; Z79.899 Other long term (current) drug therapy; Z79.2 Long term (current) use of antibiotics; Z79.4 Long term (current) use of insulin

== ENCOUNTER 2020-04-09 17:02 | Inpatient (IN) | payer OTHER ==
[~2020-04-09] VITALS: Ht 172.7 cm; Wt 170.8 kg
[2020-04-09 17:55] VITALS: BP 151/68
[2020-04-09 18:01] LABS: HEMATOCRIT 35.6 % (42.0-52.0); MEAN CELL VOLUME 87.7 fl (80.0-94.0); MEAN CORPUSCULAR HGB 27.3 pg (27.0-31.0); MEAN CORPUSCULAR HGB CONC 31.2 g/dl (33.0-37.0); MEAN PLATELET VOLUME 10.7 fl (9.6-12.3); NUCLEATED RED BLOOD CELL 0.1 10*3/uL (0.0-0.0); NUCLEATED RED BLOOD CELL 1.5 % (0.0-0.0); PLATELET COUNT AUTOMATED 268 10*3/uL (130-400); RED BLOOD COUNT 4.06 10*6/uL (4.50-5.90); RED CELL DISTRI WIDTH 14.3 % (0-14.5); WHITE BLOOD COUNT 6.9 10*3/uL (4.8-10.8)
[2020-04-09 18:12] LABS: ACT PARTIAL THROMBO TIME 25.9 SECONDS (20.0-32.1)
[2020-04-09 18:23] LABS: ALBUMIN 2.5 gm/dl (3.1-4.5); ALKALINE PHOSPHATASE 90 U/L (45-117); BUN 13 mg/dl (7-24); CHLORIDE 102 mmol/L (98-107); CREATININE 1.06 mg/dL (0.70-1.30); LIPASE 52 U/L (73-393); POTASSIUM 3.8 mmol/L (3.5-5.1); SGOT/AST 14 IU/L (3-35); SGPT/ALT 28 U/L (12-78); SODIUM 137 mmol/L (136-145); TOTAL PROTEIN 6.4 gm/dL (6.4-8.2)
[2020-04-09 18:28] LABS: TROPONIN I < 0.015 ng/ml (<0.045)
[2020-04-09 18:31] LABS: PLATELET SUFFICIENCY NORMAL (NORMAL); TOTAL CELLS COUNTED 100 #CELLS
[2020-04-09 19:48] VITALS: BP 163/70
[2020-04-09 20:53] VITALS: BP 142/75
[2020-04-09] MEDS ORDERED: FLUCONAZOLE100 MG PO (21:32)
[2020-04-10] VITALS: BP 148/58
[2020-04-10 06:54] LABS: BASO # 0.1 10*3/uL (0.0-0.1); EOS # 0.1 10*3/uL (0.0-0.4); EOS % 1.8 % (1.0-4.0); LYMPH # 1.1 10*3/uL (1.3-4.4); LYMPH % 15.7 % (27.0-41.0); MEAN CORPUSCULAR HGB 27.6 pg (27.0-31.0); MEAN CORPUSCULAR HGB CONC 30.6 g/dl (33.0-37.0); MEAN PLATELET VOLUME 10.8 fl (9.6-12.3); MONO # 0.7 10*3/uL (0.1-1.0); NEUT % 70.5 % (47.0-73.0); NUCLEATED RED BLOOD CELL 0.1 10*3/uL (0.0-0.0); PLATELET COUNT AUTOMATED 271 10*3/uL (130-400); RED BLOOD COUNT 3.99 10*6/uL (4.50-5.90); RED CELL DISTRI WIDTH 14.6 % (0-14.5); WHITE BLOOD COUNT 7.1 10*3/uL (4.8-10.8)
[2020-04-10 06:55] LABS: MEAN CELL VOLUME 90.2 fl (80.0-94.0)
[2020-04-10 07:08] LABS: ALBUMIN 2.4 gm/dl (3.1-4.5); ALKALINE PHOSPHATASE 87 U/L (45-117); BUN 12 mg/dl (7-24); CHLORIDE 101 mmol/L (98-107); CHOLESTEROL 152 mg/dL (<200); CREATININE 0.81 mg/dL (0.70-1.30); HDL CHOLESTEROL 26 mg/dl (40-60); POTASSIUM 3.6 mmol/L (3.5-5.1); SGOT/AST 21 IU/L (3-35); SGPT/ALT 32 U/L (12-78); SODIUM 138 mmol/L (136-145); TOTAL PROTEIN 6.4 gm/dL (6.4-8.2)
[2020-04-10 07:14] LABS: TRIGLYCERIDES 464 mg/dl (<150)
[2020-04-10 07:29] LABS: VITAMIN D, 25-HYDROXY 14.1 ng/mL (30-100)
[2020-04-10 08:00] VITALS: BP 164/72
[2020-04-10] MEDS ORDERED: OMEGA-3-ACID ETH1 GM PO (09:46)
[2020-04-10 12:00] VITALS: BP 144/59
[2020-04-10] MEDS ORDERED: TORSEMIDE20 MG PO (13:37)
[2020-04-10 16:00] VITALS: BP 145/56
[2020-04-10 20:00] VITALS: BP 165/51
[2020-04-11] VITALS: BP 150/59
[2020-04-11 05:42] LABS: ALBUMIN 2.4 gm/dl (3.1-4.5); ALKALINE PHOSPHATASE 86 U/L (45-117); BUN 12 mg/dl (7-24); CHLORIDE 101 mmol/L (98-107); CREATININE 0.74 mg/dL (0.70-1.30); POTASSIUM 3.7 mmol/L (3.5-5.1); SGOT/AST 25 IU/L (3-35); SGPT/ALT 35 U/L (12-78); SODIUM 139 mmol/L (136-145); TOTAL PROTEIN 6.3 gm/dL (6.4-8.2)
[2020-04-11 06:04] LABS: BASO % 0.8 % (0.0-1.0); EOS # 0.1 10*3/uL (0.0-0.4); EOS % 2.4 % (1.0-4.0); HEMATOCRIT 34.9 % (42.0-52.0); LYMPH # 1.4 10*3/uL (1.3-4.4); LYMPH % 26.9 % (27.0-41.0); MEAN CELL VOLUME 89.7 fl (80.0-94.0); MEAN CORPUSCULAR HGB 27.2 pg (27.0-31.0); MEAN CORPUSCULAR HGB CONC 30.4 g/dl (33.0-37.0); MEAN PLATELET VOLUME 10.7 fl (9.6-12.3); MONO # 0.5 10*3/uL (0.1-1.0); MONO % 10.5 % (3.0-9.0); NEUT % 58.4 % (47.0-73.0); NUCLEATED RED BLOOD CELL 0.6 % (0.0-0.0); PLATELET COUNT AUTOMATED 247 10*3/uL (130-400); RED BLOOD COUNT 3.89 10*6/uL (4.50-5.90); RED CELL DISTRI WIDTH 14.5 % (0-14.5); WHITE BLOOD COUNT 5.1 10*3/uL (4.8-10.8)
[2020-04-11 08:00] VITALS: BP 151/67
[2020-04-11 13:00] VITALS: BP 136/70
[2020-04-11 16:00] VITALS: BP 145/64
[2020-04-11 20:00] VITALS: BP 152/74
[2020-04-12] VITALS: BP 150/61
[2020-04-12 06:39] LABS: BUN 12 mg/dl (7-24); CHLORIDE 102 mmol/L (98-107); CREATININE 0.73 mg/dL (0.70-1.30); POTASSIUM 3.9 mmol/L (3.5-5.1); SODIUM 140 mmol/L (136-145)
[2020-04-12 08:00] VITALS: BP 164/70
[2020-04-12 12:00] VITALS: BP 152/82
[2020-04-12 16:00] VITALS: BP 147/51
[2020-04-12 20:00] VITALS: BP 144/75
[2020-04-13] VITALS: BP 159/70
[2020-04-13 08:00] VITALS: BP 150/68
[2020-04-13 12:00] VITALS: BP 140/69
[2020-04-13 16:00] VITALS: BP 147/75
[2020-04-13 20:00] VITALS: BP 141/55
[2020-04-14] VITALS: BP 155/65
[2020-04-14 06:25] LABS: BASO % 0.7 % (0.0-1.0); EOS # 0.1 10*3/uL (0.0-0.4); EOS % 1.9 % (1.0-4.0); HEMATOCRIT 37.5 % (42.0-52.0); LYMPH # 1.4 10*3/uL (1.3-4.4); LYMPH % 23.1 % (27.0-41.0); MEAN CELL VOLUME 89.1 fl (80.0-94.0); MEAN CORPUSCULAR HGB 27.3 pg (27.0-31.0); MEAN CORPUSCULAR HGB CONC 30.7 g/dl (33.0-37.0); MEAN PLATELET VOLUME 10.5 fl (9.6-12.3); MONO # 0.5 10*3/uL (0.1-1.0); MONO % 7.8 % (3.0-9.0); NEUT # 3.9 10*3/uL (2.3-7.9); PLATELET COUNT AUTOMATED 289 10*3/uL (130-400); RED BLOOD COUNT 4.21 10*6/uL (4.50-5.90); RED CELL DISTRI WIDTH 14.1 % (0-14.5); WHITE BLOOD COUNT 5.9 10*3/uL (4.8-10.8)
[2020-04-14 06:49] LABS: BUN 12 mg/dl (7-24); CHLORIDE 99 mmol/L (98-107); CREATININE 0.72 mg/dL (0.70-1.30); POTASSIUM 4.1 mmol/L (3.5-5.1); SODIUM 140 mmol/L (136-145)
[2020-04-14 08:00] VITALS: BP 118/65
[2020-04-14 12:00] VITALS: BP 119/63
[2020-04-14 16:00] VITALS: BP 130/53
[2020-04-14 20:00] VITALS: BP 162/70
[2020-04-15] VITALS: BP 151/68
[2020-04-15 08:00] VITALS: BP 132/55
[2020-04-15 08:47] LABS: BUN 19 mg/dl (7-24); CHLORIDE 97 mmol/L (98-107); CREATININE 0.86 mg/dL (0.70-1.30); POTASSIUM 4.3 mmol/L (3.5-5.1); SODIUM 136 mmol/L (136-145)
[2020-04-15] MEDS ORDERED: Zaroxolyn,Diul2.5 MG PO (11:47)
[2020-04-15 12:00] VITALS: BP 125/58
== END 2020-04-15 13:25 | disposition home or self-care (01) | DRG 194 ==
LOC: ED 17:02 → EDHOLD 18:58 → 5E 18:58
PROVIDERS: Emergency Medicine; Internal Medicine; ADMIT Internal Medicine
DX: I11.0 Hypertensive heart disease with heart failure (principal); I50.33 Acute on chronic diastolic (congestive) heart failure; E03.9 Hypothyroidism, unspecified; E66.2 Morbid (severe) obesity with alveolar hypoventilation; I27.81 Cor pulmonale (chronic); K21.9 Gastro-esophageal reflux disease without esophagitis; K83.8 Other specified diseases of biliary tract; E78.5 Hyperlipidemia, unspecified; E55.9 Vitamin D deficiency, unspecified; Z99.81 Dependence on supplemental oxygen; J96.11 Chronic respiratory failure with hypoxia; Z68.43 Body mass index [BMI] 50.0-59.9, adult; E11.65 Type 2 diabetes mellitus with hyperglycemia; E43 Unspecified severe protein-calorie malnutrition; Z77.22 Contact with and (suspected) exposure to environmental tobacco smoke (acute) (chronic); F90.9 Attention-deficit hyperactivity disorder, unspecified type; T38.3X6A Underdosing of insulin and oral hypoglycemic [antidiabetic] drugs, initial encounter; Y92.89 Other specified places as the place of occurrence of the external cause; Z88.6 Allergy status to analgesic agent; Z83.3 Family history of diabetes mellitus; Z81.3 Family history of other psychoactive substance abuse and dependence; Z79.899 Other long term (current) drug therapy

== ENCOUNTER 2020-04-29 21:34 | Inpatient (IN) | payer OTHER ==
[~2020-04-29] VITALS: Ht 172.7 cm; Wt 168.4 kg
[~2020-04-29 21:34] MED LIST changes: +FLUCONAZOLE100 MG PO; +OMEGA-3-ACID ETH1 GM PO; +Zaroxolyn,Diul2.5 MG PO
[2020-04-29 21:49] VITALS: BP 98/82
[2020-04-29 22:39] LABS: BASO % 0.5 % (0.0-1.0); EOS # 0.1 10*3/uL (0.0-0.4); EOS % 0.9 % (1.0-4.0); LYMPH # 1.4 10*3/uL (1.3-4.4); LYMPH % 16.2 % (27.0-41.0); MEAN CELL VOLUME 83.2 fl (80.0-94.0); MEAN CORPUSCULAR HGB 27.6 pg (27.0-31.0); MEAN CORPUSCULAR HGB CONC 33.2 g/dl (33.0-37.0); MEAN PLATELET VOLUME 11.7 fl (9.6-12.3); MONO # 0.7 10*3/uL (0.1-1.0); MONO % 8.3 % (3.0-9.0); NEUT # 6.4 10*3/uL (2.3-7.9); NEUT % 73.8 % (47.0-73.0); PLATELET COUNT AUTOMATED 312 10*3/uL (130-400); RED BLOOD COUNT 4.93 10*6/uL (4.50-5.90); RED CELL DISTRI WIDTH 12.7 % (0-14.5); WHITE BLOOD COUNT 8.7 10*3/uL (4.8-10.8)
[2020-04-29 23:15] LABS: ALBUMIN 3.2 gm/dl (3.1-4.5); ALKALINE PHOSPHATASE 100 U/L (45-117); BUN 35 mg/dl (7-24); CREATININE 2.15 mg/dL (0.70-1.30); LIPASE 186 U/L (73-393); SGOT/AST 28 IU/L (3-35); SGPT/ALT 45 U/L (12-78); TOTAL PROTEIN 7.4 gm/dL (6.4-8.2)
[2020-04-29 23:20] LABS: SODIUM 113 mmol/L (136-145)
[2020-04-29 23:21] LABS: CHLORIDE 61 mmol/L (98-107); POTASSIUM 2.4 mmol/L (3.5-5.1); TROPONIN I < 0.015 ng/ml (<0.045)
--- NOTE | 2020-04-29 23:30 | NUR ---
PT RESTING IN BED. IN NO ACUTE DISTRESS. CALL LIGHT WITHIN REACH. NO COMPLAINTS AT THIS TIME
[2020-04-30] VITALS (7 sets, daily range): BP systolic 115–170; BP diastolic 50–85
--- NOTE | 2020-04-30 00:15 | NUR ---
PT AMBULATORY TO RESTROOM. NO COMPLAINTS AT THIS TIME
--- NOTE | 2020-04-30 01:00 | NUR ---
A 34 YEAR OLD MALE admitted to [facility], under the services of CHRIS Thomas MD with a diagnosis of dka. Chief complaint is ABD PAIN, VOMITING DIZZINESS, SOB. Patient arrived via stretcher from ER. Monitor applied. Initial assessment completed. Vital signs taken and recorded. CHRIS THOMAS MD notified of admission to the unit. Orders received. See assessment for past medical history, medications and allergies. Patient and/or family oriented to unit. [facility] visitation policy reviewed. Clothing/patient valuable form completed. PATRIZIA SANCHEZ
[2020-04-30 01:26] LABS: ARTERIAL BLOOD GAS PH 7.474 (7.35-7.45)
[2020-04-30 01:41] LABS: ABG BASE EXCESS 13.9 mmol/L (-2.0-2.0)
--- NOTE | 2020-04-30 01:47 | NUR ---
Spoke with Bessy from lab about the recent ABG drawn on . She said she ran it 3 times with possible errors because of high lipase. Bessy ran through the 3 similar results with me and they corresponded with the patients present condition. Will continue to monitor.
[2020-04-30 02:10] LABS: CREATININE 1.97 mg/dL (0.70-1.30)
[2020-04-30 02:12] LABS: POTASSIUM 2.3 mmol/L (3.5-5.1)
--- NOTE | 2020-04-30 02:13 | NUR ---
RESTING IN BED WATCHING TV. K RUNS INFUSING. IV FLUIDS RUNNING. INSULIN GTT STARTED ORDERED. Q1HOUR BLOOD SUGAR CHECKS CONT.
--- NOTE | 2020-04-30 03:09 | NUR ---
BEDSIDE BLOOD SUGAR REMAINS TOO HIGH TO READ. STAT REFLEX ORDERED.
--- NOTE | 2020-04-30 04:20 | NUR ---
MED REC UPDATED.
--- NOTE | 2020-04-30 04:24 | NUR ---
RESTING IN BED WITH EYES CLOSED. APPEARS TO BE SLEEPING. NO DISTRESS NOTED. PULSE OX 92% ON RA.
--- NOTE | 2020-04-30 04:55 | NUR ---
TYLENOL 2 PO FOR C/O'S PAIN AT IV SITE FROM K+ RUNS. WILL MONITOR.
--- NOTE | 2020-04-30 04:59 | NUR ---
0455 C/O "BURNING" AT IV SITE WHERE K RUNS ARE INFUSING. RATE SLOWED DOWN.
--- NOTE | 2020-04-30 05:55 | NUR ---
0555 EARLIER TYLENOL ONLY SL EFFECTIVE.
[2020-04-30 06:01] LABS: BASO # 0.1 10*3/uL (0.0-0.1); BASO % 0.6 % (0.0-1.0); EOS # 0.1 10*3/uL (0.0-0.4); EOS % 1.7 % (1.0-4.0); HEMATOCRIT 39.4 % (42.0-52.0); LYMPH % 24.3 % (27.0-41.0); MEAN CELL VOLUME 80.6 fl (80.0-94.0); MEAN CORPUSCULAR HGB 27.4 pg (27.0-31.0); MEAN PLATELET VOLUME 11.5 fl (9.6-12.3); MONO # 0.7 10*3/uL (0.1-1.0); NEUT # 5.5 10*3/uL (2.3-7.9); PLATELET COUNT AUTOMATED 258 10*3/uL (130-400); RED BLOOD COUNT 4.89 10*6/uL (4.50-5.90); RED CELL DISTRI WIDTH 12.5 % (0-14.5); WHITE BLOOD COUNT 8.4 10*3/uL (4.8-10.8)
--- NOTE | 2020-04-30 06:14 | NUR ---
RESTING IN BED ON LEFT SIDE. INSULIN GTT CONT AT 4UNITS/HR. Q1HOUR BEDSIDE BLOOD SUGAR CHECKS CONT. IV FLUIDS NOT INFUSING AT 125CC/HR, KVO WITH K+ RUN. CONT TO YELL OUT AT INTERVALS...."MY ARM HURTS, MY TOE HURTS, MY FEET HURT". NO OVERT DISTRESS NOTED. CALL LIGHT IN REACH. CONDITION GUARDED.
[2020-04-30 06:16] LABS: INTERNATIONAL NORM RATIO 0.9 (2.0-3.5)
[2020-04-30 06:20] LABS: ALKALINE PHOSPHATASE 86 U/L (45-117); BUN 32 mg/dl (7-24); CREATININE 1.59 mg/dL (0.70-1.30); SGOT/AST 24 IU/L (3-35); SGPT/ALT 42 U/L (12-78); SODIUM 122 mmol/L (136-145); TOTAL PROTEIN 6.9 gm/dL (6.4-8.2)
[2020-04-30 06:29] LABS: POTASSIUM 2.2 mmol/L (3.5-5.1)
[2020-04-30 06:30] LABS: CHLORIDE 72 mmol/L (98-107)
--- NOTE | 2020-04-30 07:09 | NUR ---
DR. JOSEPH NOTIFIED OF CONSULT. ORDERS RECEIVED.
--- NOTE | 2020-04-30 08:17 | NUR ---
Awake and alert. Moaning, "it hurts , it hurts, Holding rt. arm IV potassium site, IV rumnning at decreased rate due to discomfort. Ice bag present to site.
--- NOTE | 2020-04-30 08:19 | NUR ---
Up to BSC self. INsulin increased re: glu 445. PO potassium given.
--- NOTE | 2020-04-30 09:00 | NUR ---
Truckload Checker in to talk to patient. Patient states lives at home alone with his family checking in on him. There are 0 steps in the home. Physician: Dr. Patrick Eagle [facility]: [facility] Home health services: none Patient's level of ADLs: MINIMAL ASSIST Patient has working utilities: yes DME: cane, O2 @ 3L [place], [facility] Follow-up physician's appointment after d/c: he prefers to make his own follow up appt after discharge Does patient want to access PORTAL?: no Discharge plan discussed with patient. He lives at home alone with his family checking in on him. He is independent in his ADLs and ambulates with a cane. Discussed home health care services and he declines. CM will continue to follow for any discharge planning needs. When medically stable he will be discharged to home. He states his sister will provide transportation on discharge. NANNETTE GONZALEZ
--- NOTE | 2020-04-30 09:02 | NUR ---
Dr. De La Cruz here and aware of critical LA of 3.2.
--- NOTE | 2020-04-30 09:06 | NUR ---
[facility]
[2020-04-30 10:28] LABS: BUN 28 mg/dl (7-24); CREATININE 1.47 mg/dL (0.70-1.30); POTASSIUM 2.7 mmol/L (3.5-5.1); SODIUM 127 mmol/L (136-145)
[2020-04-30 10:50] LABS: CHLORIDE 74 mmol/L (98-107)
--- NOTE | 2020-04-30 11:35 | NUR ---
Dr. Ch here . Aware of critical lab values.
[2020-04-30 12:55] LABS: ARTERIAL BLOOD GAS PH 7.464 (7.35-7.45)
[2020-04-30 14:42] LABS: BUN 27 mg/dl (7-24); CHLORIDE 79 mmol/L (98-107); CREATININE 1.28 mg/dL (0.70-1.30); POTASSIUM 2.8 mmol/L (3.5-5.1); SODIUM 129 mmol/L (136-145)
--- NOTE | 2020-04-30 15:26 | NUR ---
Critical labs and update were called to Dr. De La Cruz.
[2020-04-30 15:59] LABS: BILIRUBIN NEGATIVE (NEGATIVE); BLOOD 1+ (NEGATIVE); CLARITY CLEAR (CLEAR); COLOR YELLOW (YELLOW); GLUCOSE 2+ (NEGATIVE); KETONE NEGATIVE (NEGATIVE)
[2020-04-30 16:00] LABS: EPITHELIAL CELLS 0-2; LEUKO ESTERASE NEGATIVE (NEGATIVE); NITRITE NEGATIVE (NEGATIVE); UROBILINOGEN 0.2 E.U./dl (0.2-1.0); WBC 0-2 wbc/hpf (0-5)
--- NOTE | 2020-04-30 16:00 | NUR ---
Dr. Ch was called and updated on bpt. labs and nursing inability , in spite of insulin gtt, to obtain a bed glucose of < 400. new orders were recieved,
--- NOTE | 2020-04-30 17:16 | NUR ---
Pt was transferred to [facility]- . All belongings were transferred with him.
[2020-04-30 17:51] LABS: BUN 25 mg/dl (7-24); CHLORIDE 83 mmol/L (98-107); CREATININE 1.22 mg/dL (0.70-1.30); POTASSIUM 3.1 mmol/L (3.5-5.1); SODIUM 128 mmol/L (136-145)
--- NOTE | 2020-04-30 18:06 | NUR ---
Medicated for c/o pain to foot, see E-mar.
--- NOTE | 2020-04-30 18:57 | NUR ---
STATES TYLENOL HELPED A LITTLE BIT FOR ACHES AND PAINS.
--- NOTE | 2020-04-30 20:13 | NUR ---
1929 SITTING UP ON THE SIDE OF THE BED. NO DISTRESS NOTED. INSULIN GTT MAINTAINED AT 17UNITS/HR. IV FLUIDS CONT. PULSE OX 99% ON 2L 02 VIA NC. Q1H BEDSIDE BLOOD SUGAR CHECKS CONT. 1999 RESTING IN BED WITH EYES CLOSED. APPEARS TO BE SLEEPING BEDSIDE BLOOD SUGAR 352. INSULIN GTT INCREASED TO 18UNITS/HR. WILL CONT TO MONITOR.
[2020-04-30 22:21] LABS: BUN 21 mg/dl (7-24); CHLORIDE 90 mmol/L (98-107); CREATININE 1.15 mg/dL (0.70-1.30); SODIUM 133 mmol/L (136-145)
[2020-05-01] VITALS: BP 99/64
--- NOTE | 2020-05-01 00:30 | NUR ---
UP TO BSC, HAD LARGE LIQUID STOOL AND VOIDED EXCESSIVE AMOUNT OF URINE. C/O DIARRHEA. HAD ROUTINE IMMODIUM AT 2200. REMAINS UNCOOPERATIVE.
[2020-05-01 02:31] LABS: BUN 20 mg/dl (7-24); CHLORIDE 93 mmol/L (98-107); CREATININE 0.95 mg/dL (0.70-1.30); POTASSIUM 3.8 mmol/L (3.5-5.1); SODIUM 134 mmol/L (136-145)
[2020-05-01 04:00] VITALS: BP 115/80
--- NOTE | 2020-05-01 04:17 | NUR ---
Q1H BEDSIDE BLOOD SUGARS HAVE BEEN TRENDING DOWN. TITRATING INSULIN GTT DOWN ACCORDINGLY. SEE INTERVENTION SCREEN.
[2020-05-01 05:31] LABS: BUN 19 mg/dl (7-24); CHLORIDE 93 mmol/L (98-107); CREATININE 1.01 mg/dL (0.70-1.30); POTASSIUM 4.1 mmol/L (3.5-5.1); SODIUM 132 mmol/L (136-145)
--- NOTE | 2020-05-01 06:06 | NUR ---
UP TO BSC. HAD ANOTHER HUGE LIQUID STOOL. ROUTINE IMMODIUM GIVEN. RESTING IN BED WITHOUT C/O'S. INSULIN GTT CONT AT 1 UNIT/HR. IV FLUIDS CONT. NO DISTRESS NOTED. CONDITION GUARDED.
[2020-05-01 06:13] LABS: BASO # 0.1 10*3/uL (0.0-0.1); BASO % 0.9 % (0.0-1.0); EOS # 0.5 10*3/uL (0.0-0.4); EOS % 5.2 % (1.0-4.0); HEMATOCRIT 43.2 % (42.0-52.0); LYMPH # 2.9 10*3/uL (1.3-4.4); LYMPH % 30.6 % (27.0-41.0); MEAN CORPUSCULAR HGB 27.1 pg (27.0-31.0); MEAN CORPUSCULAR HGB CONC 31.7 g/dl (33.0-37.0); MEAN PLATELET VOLUME 11.5 fl (9.6-12.3); MONO # 0.7 10*3/uL (0.1-1.0); MONO % 7.4 % (3.0-9.0); NEUT # 5.3 10*3/uL (2.3-7.9); NEUT % 55.4 % (47.0-73.0); PLATELET COUNT AUTOMATED 310 10*3/uL (130-400); RED BLOOD COUNT 5.05 10*6/uL (4.50-5.90); RED CELL DISTRI WIDTH 13.1 % (0-14.5); WHITE BLOOD COUNT 9.5 10*3/uL (4.8-10.8)
[2020-05-01 06:14] LABS: MEAN CELL VOLUME 85.5 fl (80.0-94.0)
--- NOTE | 2020-05-01 08:00 | NUR ---
PT REFUSED AM MEDS AND DID NOT ALLOW US TO DO BP CHECK. PT HAVING CHILD LIKE BEHAVIOR WHEN TAKING HIS BSG VERY EXAGGERATED BEHAVIOR. THEN CLOSED HIS EYES AND WOULD NOT TALK TO US AT ALL.
--- NOTE | 2020-05-01 10:19 | NUR ---
IV FLUIDS DECREASED TO 50ML/HR PER MD ORDER.
--- NOTE | 2020-05-01 10:54 | NUR ---
Nutritional Support Services Note: Attempted to discuss diabetes and weight loss with pt. Have attempted multiple times in the past. He contnues to refuse diet instruction or to even listen to me. He is noncompliant to diet and does not have any desire to change his eating habits. Ht.5'8 Wt.359# Left a basic diabetic meal guideline sheet with pt. Susan Rjaan Rdn Ld
[2020-05-01 12:00] VITALS: BP 103/45
--- NOTE | 2020-05-01 15:25 | NUR ---
PRN TYLENOL GIVEN AT THIS TIME DUE TO PATIENT COMPLAINT OF DENTAL PAIN.
[2020-05-01 16:00] VITALS: BP 122/69
--- NOTE | 2020-05-01 16:25 | NUR ---
PT STATES SOME EFFECTIVENESS OF PRN TYLENOL FOR DENTAL PAIN, RATES PAIN 4/10 AT THIS TIME.
--- NOTE | 2020-05-01 18:49 | NUR ---
CHART CHECK COMPLETE.
[2020-05-01 20:00] VITALS: BP 145/60
[2020-05-02] VITALS: BP 149/51
--- NOTE | 2020-05-02 02:04 | NUR ---
URINE COLLECTED AND SENT TO THE LAB AT THIS TIME PER DRS ORDERS. PATIENT ALSO PROVIDED WITH GOWN AND BLANKET PER HIS REQUEST.
--- NOTE | 2020-05-02 02:29 | NUR ---
PATIENT CONTINUES TO YELL OUT AND HAS SINCE THIS RN TOOK OVER CARE OF PATIENT. STATES HIS FEET HURT, HIS BACK HURTS, HIS MOUTH HURTS, WHEN RN INQUIRED ABOUT TYLENOL THAT WAS AVAILABLE PATIENT STATES NEVERMIND.
[2020-05-02 02:31] LABS: URINE CREATININE RANDOM 21.1 mg/dL
[2020-05-02 04:00] VITALS: BP 138/68
[2020-05-02 06:09] LABS: ALBUMIN 2.6 gm/dl (3.1-4.5); BUN 14 mg/dl (7-24); CHLORIDE 96 mmol/L (98-107); CREATININE 0.92 mg/dL (0.70-1.30); POTASSIUM 3.6 mmol/L (3.5-5.1); SGOT/AST 31 IU/L (3-35); SGPT/ALT 47 U/L (12-78); SODIUM 134 mmol/L (136-145); TOTAL PROTEIN 6.3 gm/dL (6.4-8.2)
[2020-05-02 06:10] LABS: ALKALINE PHOSPHATASE 72 U/L (45-117); BASO # 0.1 10*3/uL (0.0-0.1); BASO % 1.2 % (0.0-1.0); EOS # 0.3 10*3/uL (0.0-0.4); EOS % 5.7 % (1.0-4.0); HEMATOCRIT 39.6 % (42.0-52.0); LYMPH # 1.8 10*3/uL (1.3-4.4); LYMPH % 29.7 % (27.0-41.0); MEAN CELL VOLUME 86.7 fl (80.0-94.0); MEAN CORPUSCULAR HGB 27.6 pg (27.0-31.0); MEAN CORPUSCULAR HGB CONC 31.8 g/dl (33.0-37.0); MEAN PLATELET VOLUME 11.7 fl (9.6-12.3); MONO # 0.5 10*3/uL (0.1-1.0); MONO % 7.7 % (3.0-9.0); NEUT # 3.3 10*3/uL (2.3-7.9); NEUT % 55.2 % (47.0-73.0); PLATELET COUNT AUTOMATED 235 10*3/uL (130-400); RED BLOOD COUNT 4.57 10*6/uL (4.50-5.90); RED CELL DISTRI WIDTH 13.2 % (0-14.5)
[2020-05-02 08:00] VITALS: BP 137/56
--- NOTE | 2020-05-02 08:00 | NUR ---
RESTING IN BED. DROWSY. VITALS STABLE. PULSE OX 99% ON 2L NASAL CANNULA. LUNGS CLEAR BILATERALLY. NO PERIPHERAL EDEMA NOTED. HUMAIRA HOSE INTACT TO BILATERAL LOWER LEGS. HEP LOCK INTACT TO LEFT AND RIGHT ARM. AFEBRILE.
--- NOTE | 2020-05-02 09:00 | NUR ---
REFUSED TO TAKE LOVENOX. VOICES "MY BLOOD IS ALREADY THIN ENOUGH." " I DON'T CARE IF I GET BLOOD CLOTS OR NOT."
[2020-05-02 12:00] VITALS: BP 135/64
[2020-05-02] MEDS ORDERED: ADMELOG100 UNIT/1 SQ (14:28)
[2020-05-02] MEDS ORDERED: SEPTDS PO (14:31)
[2020-05-02] MEDS ORDERED: CLINDAMYCIN HC300 MG PO (14:32)
--- NOTE | 2020-05-02 15:00 | NUR ---
Discharge instructions reviewed with patient/family. Patient receptive and verbalizes understanding. Follow-up care arranged. Written instructions given to patient/family. PENNY STEPHENS
[2020-05-03 06:36] LABS: CREATININE,URINE 21.7 mg/dL (Not Estab.)
== END 2020-05-02 16:07 | disposition home or self-care (01) | DRG 420 ==
LOC: ED 21:34 → EDHOLD 23:36 → ICCU 23:36
PROVIDERS: Internal Medicine; Internal Medicine Nephrology; Physician Assistant; Student in an Organized Health Care Education/Training Program; ADMIT Internal Medicine
DX: E11.10 Type 2 diabetes mellitus with ketoacidosis without coma (principal); N17.0 Acute kidney failure with tubular necrosis; D64.9 Anemia, unspecified; E87.1 Hypo-osmolality and hyponatremia; E87.8 Other disorders of electrolyte and fluid balance, not elsewhere classified; E87.6 Hypokalemia; J96.11 Chronic respiratory failure with hypoxia; K83.8 Other specified diseases of biliary tract; K21.9 Gastro-esophageal reflux disease without esophagitis; E78.5 Hyperlipidemia, unspecified; F90.9 Attention-deficit hyperactivity disorder, unspecified type; E87.4 Mixed disorder of acid-base balance; K04.7 Periapical abscess without sinus; G93.41 Metabolic encephalopathy; E11.00 Type 2 diabetes mellitus with hyperosmolarity without nonketotic hyperglycemic-hyperosmolar coma (NKHHC); E66.2 Morbid (severe) obesity with alveolar hypoventilation; B96.20 Unspecified Escherichia coli [E. coli] as the cause of diseases classified elsewhere; N39.0 Urinary tract infection, site not specified; B96.89 Other specified bacterial agents as the cause of diseases classified elsewhere; F17.220 Nicotine dependence, chewing tobacco, uncomplicated; J96.12 Chronic respiratory failure with hypercapnia; E03.9 Hypothyroidism, unspecified; E44.1 Mild protein-calorie malnutrition; E83.41 Hypermagnesemia; I50.32 Chronic diastolic (congestive) heart failure; Z99.81 Dependence on supplemental oxygen; Z68.43 Body mass index [BMI] 50.0-59.9, adult; Z91.19 Patient's noncompliance with other medical treatment and regimen; Z79.4 Long term (current) use of insulin; Z88.6 Allergy status to analgesic agent; Z83.3 Family history of diabetes mellitus; Z81.3 Family history of other psychoactive substance abuse and dependence; Z79.899 Other long term (current) drug therapy

== ENCOUNTER 2020-05-07 18:07 | Inpatient (IN) | payer OTHER ==
[~2020-05-07] VITALS: Ht 172.7 cm; Wt 176.5 kg
[~2020-05-07 18:07] MED LIST changes: +CLINDAMYCIN HC300 MG PO
[2020-05-07 18:16] VITALS: BP 123/62
[2020-05-07 18:58] LABS: BASO % 0.3 % (0.0-1.0); EOS # 0.1 10*3/uL (0.0-0.4); EOS % 2.3 % (1.0-4.0); HEMATOCRIT 36.8 % (42.0-52.0); LYMPH # 1.1 10*3/uL (1.3-4.4); LYMPH % 17.2 % (27.0-41.0); MEAN CELL VOLUME 86.2 fl (80.0-94.0); MEAN CORPUSCULAR HGB 27.2 pg (27.0-31.0); MEAN CORPUSCULAR HGB CONC 31.5 g/dl (33.0-37.0); MONO # 0.4 10*3/uL (0.1-1.0); MONO % 6.7 % (3.0-9.0); NEUT # 4.5 10*3/uL (2.3-7.9); NEUT % 73.2 % (47.0-73.0); PLATELET COUNT AUTOMATED 238 10*3/uL (130-400); RED BLOOD COUNT 4.27 10*6/uL (4.50-5.90); RED CELL DISTRI WIDTH 13.6 % (0-14.5); WHITE BLOOD COUNT 6.1 10*3/uL (4.8-10.8)
[2020-05-07 19:13] LABS: ALBUMIN 2.8 gm/dl (3.1-4.5); CREATININE 3.35 mg/dL (0.70-1.30); POTASSIUM 3.7 mmol/L (3.5-5.1); TOTAL PROTEIN 6.6 gm/dL (6.4-8.2)
[2020-05-07 20:00] VITALS: BP 133/51
[2020-05-07 22:40] VITALS: BP 133/51
--- NOTE | 2020-05-07 22:40 | NUR ---
Time: 2239 A 34 year old MALE admitted to 4E under services of DR. ELAYNE RICHARD,CHRIS. Pt. arrived via stretcher from ER. Chief complaint: N/V DIZZINESS.. BINTA BERNARD
--- NOTE | 2020-05-08 | NUR ---
NOTIFIFED DR. DEMARCO PATIENTS MED REC UP TO DATE.
[2020-05-08] MEDS ORDERED: Percocet 325 MG1 TAB PO (00:24)
--- NOTE | 2020-05-08 04:00 | NUR ---
PATIENT SLEEPING, NO SIGNS OF DISTRESS. RESPIRATIONS EASY, NON LABORED. WILL CONTINUE TO MONITOR.
[2020-05-08 04:36] LABS: BILIRUBIN NEGATIVE (NEGATIVE); BLOOD NEGATIVE (NEGATIVE); COLOR YELLOW (YELLOW); KETONE NEGATIVE (NEGATIVE); SPECIFIC GRAVITY 1.015 (1.005-1.030)
[2020-05-08 04:37] LABS: GLUCOSE TRACE (NEGATIVE); LEUKO ESTERASE NEGATIVE (NEGATIVE); NITRITE NEGATIVE (NEGATIVE); UROBILINOGEN 0.2 E.U./dl (0.2-1.0)
[2020-05-08 04:38] LABS: CLARITY SL CLOUDY (CLEAR)
[2020-05-08 04:43] LABS: BACTERIA TRACE; EPITHELIAL CELLS 31-40
[2020-05-08 05:54] LABS: BASO % 0.8 % (0.0-1.0); EOS # 0.2 10*3/uL (0.0-0.4); EOS % 3.5 % (1.0-4.0); HEMATOCRIT 34.1 % (42.0-52.0); LYMPH # 1.4 10*3/uL (1.3-4.4); MEAN CELL VOLUME 86.8 fl (80.0-94.0); MEAN CORPUSCULAR HGB CONC 32.3 g/dl (33.0-37.0); MEAN PLATELET VOLUME 11.5 fl (9.6-12.3); MONO # 0.5 10*3/uL (0.1-1.0); MONO % 9.9 % (3.0-9.0); NEUT % 58.4 % (47.0-73.0); PLATELET COUNT AUTOMATED 238 10*3/uL (130-400); RED BLOOD COUNT 3.93 10*6/uL (4.50-5.90); RED CELL DISTRI WIDTH 13.4 % (0-14.5); WHITE BLOOD COUNT 5.2 10*3/uL (4.8-10.8)
[2020-05-08 05:59] LABS: ALBUMIN 2.6 gm/dl (3.1-4.5); CREATININE 2.23 mg/dL (0.70-1.30); POTASSIUM 3.6 mmol/L (3.5-5.1); TOTAL PROTEIN 6.2 gm/dL (6.4-8.2)
--- NOTE | 2020-05-08 06:24 | NUR ---
PATIENT REFUSING COVERAGE AT THIS TIME. STATES " 162 IS ALREADY TOO LOW FOR ME. I DONT NEED INSULIN." WILL CONTINUE TO MONITOR.
--- NOTE | 2020-05-08 07:37 | NUR ---
tylenol for headache
[2020-05-08 08:00] VITALS: BP 136/64; BP 144/50
--- NOTE | 2020-05-08 08:30 | NUR ---
relief of headache
--- NOTE | 2020-05-08 09:00 | NUR ---
Glass Scullion in to talk to patient. Patient states lives at home alone with his family checking in on him. There are 0 steps in the home. Physician: Dr. 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 He lives at home alone with his dog and his family checking in on him. He is independent in his ADLs and ambulates with a cane. Discussed home health care services and he declines stating "my rott will eat you alive." CM will continue to follow for any discharge planning needs. When medically stable he will be discharged to home. He states his sister will provide transportation on discharge. NANNETTE GONZALEZ
--- NOTE | 2020-05-08 09:27 | NUR ---
dr patel notified of new consult
[2020-05-08 12:00] VITALS: BP 144/81
--- NOTE | 2020-05-08 13:47 | NUR ---
Nutritional Support Services Note: Pt refuses to comply with diet at home. He refuses diet instruction. Diet copy given to pt on last admission. He will contnue to eat whatever he wants. Susan Rajan Rdn Ld
--- NOTE | 2020-05-08 14:10 | NUR ---
DR WATSON NOTIFIED OF CONSULT
--- NOTE | 2020-05-08 15:30 | NUR ---
ASSUMED CARE OF PATIENT AT THIS TIME. PATIENT STATES NO NEEDS.
[2020-05-08 16:00] VITALS: BP 134/72
--- NOTE | 2020-05-08 19:00 | NUR ---
ASSUMED CARE FOR THIS PT AT THIS TIME. PT AWAKE IN BED WATCHING TV. HS SNACK GIVEN TO PT. IVF INFUSING ORDERED. CALL LIGHT IN REACH.
[2020-05-08 20:00] VITALS: BP 164/69
--- NOTE | 2020-05-08 20:02 | NUR ---
PT C/O H/A AND NAUSEA AND CONSTIPATION. PT MEDICATED W/PERCOCET, ZOFRAN, AND DULCOLAX. WILL MONITOR FOR EFFECTIVENESS. CALL LIGHT IN REACH.
--- NOTE | 2020-05-08 21:00 | NUR ---
PT STATES PERCOCET AND ZOFRAN WERE EFFECTIVE.
[2020-05-09] VITALS: BP 146/90
--- NOTE | 2020-05-09 00:38 | NUR ---
PT C/O RT SIDE MOUTH PAIN AND H/A. MEDICATED W/PERCOCET. PT CAN NOT RATE PAIN. CALL LIGHT IN REACH.
--- NOTE | 2020-05-09 01:30 | NUR ---
PT RESTING QUEITLY IN BED. NO S/S OF DISTRESS NOTED. PRN PAIN MED EFFECTIVE.
[2020-05-09 06:27] LABS: BASO # 0.1 10*3/uL (0.0-0.1); BASO % 1.1 % (0.0-1.0); EOS # 0.1 10*3/uL (0.0-0.4); EOS % 2.9 % (1.0-4.0); HEMATOCRIT 37.7 % (42.0-52.0); LYMPH # 1.4 10*3/uL (1.3-4.4); LYMPH % 32.3 % (27.0-41.0); MEAN CELL VOLUME 87.7 fl (80.0-94.0); MEAN CORPUSCULAR HGB 27.4 pg (27.0-31.0); MEAN CORPUSCULAR HGB CONC 31.3 g/dl (33.0-37.0); MEAN PLATELET VOLUME 10.5 fl (9.6-12.3); MONO # 0.5 10*3/uL (0.1-1.0); MONO % 10.1 % (3.0-9.0); NEUT # 2.4 10*3/uL (2.3-7.9); NEUT % 53.4 % (47.0-73.0); PLATELET COUNT AUTOMATED 232 10*3/uL (130-400); RED CELL DISTRI WIDTH 13.7 % (0-14.5); WHITE BLOOD COUNT 4.5 10*3/uL (4.8-10.8)
--- NOTE | 2020-05-09 06:39 | NUR ---
PT REFUSING INSULIN COVERAGE FOR BS OF 162. PT STATES THAT IS LOW FOR HIM.
[2020-05-09 06:52] LABS: ALBUMIN 2.7 gm/dl (3.1-4.5); CHLORIDE 107 mmol/L (98-107); POTASSIUM 4.2 mmol/L (3.5-5.1); SGOT/AST 25 IU/L (3-35); SGPT/ALT 32 U/L (12-78); SODIUM 138 mmol/L (136-145); TOTAL PROTEIN 6.5 gm/dL (6.4-8.2)
[2020-05-09 06:53] LABS: ALKALINE PHOSPHATASE 59 U/L (45-117)
[2020-05-09 06:56] LABS: BUN 26 mg/dl (7-24)
[2020-05-09 08:00] VITALS: BP 128/78
[2020-05-09 12:00] VITALS: BP 143/50
[2020-05-09 16:00] VITALS: BP 120/50
--- NOTE | 2020-05-09 19:40 | NUR ---
24 HR CHART CHECK COMPLETE.
[2020-05-09 20:00] VITALS: BP 146/54
[2020-05-10] VITALS: BP 131/59
[2020-05-10 06:56] LABS: CHLORIDE 108 mmol/L (98-107); CREATININE 0.76 mg/dL (0.70-1.30); POTASSIUM 4.5 mmol/L (3.5-5.1); SODIUM 139 mmol/L (136-145)
[2020-05-10 07:11] LABS: BUN 16 mg/dl (7-24)
[2020-05-10 08:00] VITALS: BP 142/62
--- NOTE | 2020-05-10 08:00 | NUR ---
PATIENT LAYING IN BED YELLING OUT UPON ENTERING THE ROOM. NO STATED COMPLAINTS AT THIS TIME. PT IS AWAKE, ALERT AND ORIENTED. RESPIRATIONS ARE EASY AND REGULAR ON ROOM AIR, NO SOB NOTED AT REST. PT IS ABLE TO REPOSITION SELF AND IS ENCOURAGED TO DO SO. BED IN LOWEST LOCKED POSITION AND CALL LIGHT WITHIN REACH. WILL CONTINUE TO MONITOR.
--- NOTE | 2020-05-10 08:58 | NUR ---
PT COMPLAINS FOR HEADACHE, LEG PAIN, SHOULDER AND ARM PAIN. WHEN ASKED WHAT HE WOULD RATE THE PAIN ON A SCALE FROM 1-10. HE STATED "I DON'T KNOW I DON'T HAVE PAIN IN NUMBERS." PRN PERCOCET ADMINISTERED AT THIS TIME. WILL MONITOR FOR EFFECTIVENESS.
--- NOTE | 2020-05-10 10:58 | NUR ---
PT ASLEEP UPON ENTERING ROOM BUT AWAKENS EASILY STATES HE STILL HAS A HEADACHE AND NOW HIS TEETH HURT. STATES PRN PERCOCET WAS NOT STRONG ENOUGH. OFFERED TYLENOL AT THIS TIME BUT PT REFUSED.
[2020-05-10 12:00] VITALS: BP 140/66
[2020-05-10 16:00] VITALS: BP 151/60
[2020-05-10 20:00] VITALS: BP 186/73
--- NOTE | 2020-05-10 20:59 | NUR ---
PT IS SITTING UP ON THE SIDE OF THE BED AT THIS TIME. NO S/S OF DISTRESS NOTED, PER PT HE IS FEELING FINE. BEDSIDE GLUCOSE OBTAINED AND TREATED PER ORDER WELL NIGHT TIME MEDICATIONS ADMINISTERED PER PT REQUEST. RESPS ARE EASY AND NONLABORED, BED LOW, CALL LIGHT WITHIN REACH. WILL CONTINUE TO MONITOR.
[2020-05-11] VITALS: BP 151/78
[2020-05-11 06:21] LABS: BASO # 0.1 10*3/uL (0.0-0.1); BASO % 0.9 % (0.0-1.0); EOS # 0.1 10*3/uL (0.0-0.4); EOS % 1.6 % (1.0-4.0); HEMATOCRIT 37.1 % (42.0-52.0); LYMPH # 1.6 10*3/uL (1.3-4.4); MEAN CELL VOLUME 88.8 fl (80.0-94.0); MEAN CORPUSCULAR HGB 27.5 pg (27.0-31.0); MEAN PLATELET VOLUME 10.8 fl (9.6-12.3); MONO # 0.5 10*3/uL (0.1-1.0); MONO % 9.4 % (3.0-9.0); NEUT # 3.3 10*3/uL (2.3-7.9); NEUT % 59.6 % (47.0-73.0); NUCLEATED RED BLOOD CELL 0.7 % (0.0-0.0); PLATELET COUNT AUTOMATED 285 10*3/uL (130-400); RED BLOOD COUNT 4.18 10*6/uL (4.50-5.90); WHITE BLOOD COUNT 5.6 10*3/uL (4.8-10.8)
[2020-05-11 06:31] LABS: BUN 14 mg/dl (7-24); CHLORIDE 110 mmol/L (98-107); CREATININE 0.82 mg/dL (0.70-1.30); POTASSIUM 4.6 mmol/L (3.5-5.1); SODIUM 144 mmol/L (136-145)
[2020-05-11 08:00] VITALS: BP 154/59
--- NOTE | 2020-05-11 09:00 | NUR ---
CM in to see patient. No new needs or request at this time. Discussed home health care services and he declines. CM will continue to follow for any discharge planning needs. When medically stable he will be discharged to home.
[2020-05-11 12:00] VITALS: BP 162/82
[2020-05-11 16:00] VITALS: BP 168/98
[2020-05-11] MEDS ORDERED: VITAMIN D3125 MC1 PO (16:31)
[2020-05-11] MEDS ORDERED: CLEOCIN HCL300 MG PO (16:32)
--- NOTE | 2020-05-11 18:30 | NUR ---
Discharge instructions reviewed with patient/family. Patient receptive and verbalizes understanding. Follow-up care arranged. Written instructions given to patient/family. CURT DEWITT
== END 2020-05-11 18:20 | disposition home or self-care (01) | DRG 114 ==
LOC: ED 18:07 → 4E 21:55 → EDHOLD 21:55 → 4E 22:12
PROVIDERS: Internal Medicine; Nurse Practitioner Family; Student in an Organized Health Care Education/Training Program; ADMIT Internal Medicine
DX: K04.7 Periapical abscess without sinus (principal); N17.0 Acute kidney failure with tubular necrosis; E83.41 Hypermagnesemia; E44.0 Moderate protein-calorie malnutrition; E03.9 Hypothyroidism, unspecified; F90.9 Attention-deficit hyperactivity disorder, unspecified type; E11.65 Type 2 diabetes mellitus with hyperglycemia; F17.220 Nicotine dependence, chewing tobacco, uncomplicated; I50.30 Unspecified diastolic (congestive) heart failure; E78.5 Hyperlipidemia, unspecified; K21.9 Gastro-esophageal reflux disease without esophagitis; D64.9 Anemia, unspecified; E83.39 Other disorders of phosphorus metabolism; E66.2 Morbid (severe) obesity with alveolar hypoventilation; K83.8 Other specified diseases of biliary tract; I11.0 Hypertensive heart disease with heart failure; J96.11 Chronic respiratory failure with hypoxia; E11.42 Type 2 diabetes mellitus with diabetic polyneuropathy; E87.8 Other disorders of electrolyte and fluid balance, not elsewhere classified; Z79.4 Long term (current) use of insulin; Z91.14 Patient's other noncompliance with medication regimen; Z88.6 Allergy status to analgesic agent; Z83.3 Family history of diabetes mellitus; Z68.43 Body mass index [BMI] 50.0-59.9, adult; Z79.899 Other long term (current) drug therapy

== ENCOUNTER 2020-06-24 18:01 | Inpatient (IN) | payer OTHER ==
[~2020-06-24] VITALS: Ht 172.7 cm; Wt 181.1 kg
[~2020-06-24 18:01] MED LIST changes: +CLEOCIN HCL300 MG PO; +VITAMIN D3125 MC1 PO
[2020-06-24 18:05] VITALS: BP 145/59
[2020-06-24 18:53] LABS: HEMATOCRIT 35.5 % (42.0-52.0); MEAN CELL VOLUME 87.4 fl (80.0-94.0); MEAN CORPUSCULAR HGB 27.1 pg (27.0-31.0); MEAN PLATELET VOLUME 10.6 fl (9.6-12.3); NUCLEATED RED BLOOD CELL 0.2 10*3/uL (0.0-0.0); NUCLEATED RED BLOOD CELL 2.4 % (0.0-0.0); PLATELET COUNT AUTOMATED 269 10*3/uL (130-400); RED BLOOD COUNT 4.06 10*6/uL (4.50-5.90); RED CELL DISTRI WIDTH 14.8 % (0-14.5); WHITE BLOOD COUNT 8.4 10*3/uL (4.8-10.8)
[2020-06-24 19:05] LABS: ACT PARTIAL THROMBO TIME 25.5 SECONDS (20.0-32.1); INTERNATIONAL NORM RATIO 0.9 (2.0-3.5)
[2020-06-24 19:09] LABS: ALBUMIN 2.9 gm/dl (3.1-4.5); ALKALINE PHOSPHATASE 122 U/L (45-117); BUN 21 mg/dl (7-24); CHLORIDE 96 mmol/L (98-107); CREATININE 1.23 mg/dL (0.70-1.30); LIPASE 95 U/L (73-393); POTASSIUM 4.3 mmol/L (3.5-5.1); SGOT/AST 14 IU/L (3-35); SGPT/ALT 30 U/L (12-78); SODIUM 132 mmol/L (136-145)
[2020-06-24 19:12] LABS: BASOPHILS 3 % (0-1); PLATELET SUFFICIENCY NORMAL (NORMAL); POLYCHROMASIA SLIGHT; TOTAL CELLS COUNTED 100 #CELLS
[2020-06-24 19:23] LABS: TROPONIN I < 0.015 ng/ml (<0.045)
[2020-06-24 20:12] LABS: BILIRUBIN Negative (Negative); BLOOD Negative (Negative); CLARITY Clear (Clear); COLOR Yellow (Yellow); GLUCOSE 3+ (Negative); KETONE Negative (Negative); LEUKO ESTERASE Negative (Negative); NITRITE Negative (Negative); PH 6.5 (4.5-8.0); SPECIFIC GRAVITY 1.015 (1.001-1.030); UROBILINOGEN 0.2 E.U./dl (0.0-1.0)
[2020-06-24 20:36] VITALS: BP 1142/82; BP 142/82
[2020-06-24 20:42] LABS: RBC 0-2 rbc/hpf (0-2); WBC 0-2 wbc/hpf (0-5)
[2020-06-24 21:07] LABS: BUN 20 mg/dl (7-24); CHLORIDE 94 mmol/L (98-107); CREATININE 1.26 mg/dL (0.70-1.30); POTASSIUM 4.2 mmol/L (3.5-5.1); SODIUM 131 mmol/L (136-145)
--- NOTE | 2020-06-24 21:27 | NUR ---
DR. ZHENG CONTACTED FOR LACTIC ACID OF 4.2.
[2020-06-24 21:30] VITALS: BP 171/74
--- NOTE | 2020-06-24 21:30 | NUR ---
A 35, admitted to 4E, under the services of CHRIS Thomas MD with a diagnosis of LACTIC ACIDOSIS TEODORO TO DIABETES MELLITUS. Chief complaint is SOB AND COUGH. Patient arrived via wheel chair from ER. Monitor applied. Initial assessment completed. Vital signs taken and recorded. CHRIS THOMAS MD notified of admission to the unit. Orders received. See assessment for past medical history, medications and allergies. Patient and/or family oriented to unit. Clothing/patient valuable form completed. VERA HOLLINS
--- NOTE | 2020-06-24 21:54 | NUR ---
DR ZHENG NOTIFIED OF GLUCOSE 549
--- NOTE | 2020-06-24 21:59 | NUR ---
[address] ZHENG OF [facility]
--- NOTE | 2020-06-24 22:00 | NUR ---
PATIENT COMPLAINING OF PAIN. TYLENOL OFFERED PER ORDERS, PT STATES THAT IT WILL NOT HELP, EVEN IF HE TOOK AN ENTIRE BOTTLE. WILL CONT TO MONITOR.
[2020-06-25] VITALS: BP 140/65
--- NOTE | 2020-06-25 00:02 | NUR ---
MED REC COMPLETE. PATIENT STATES THAT NOTHING HAS CHANGED SINCE LAST ADMISSION.
[2020-06-25 06:35] LABS: HEMATOCRIT 32.6 % (42.0-52.0); MEAN CELL VOLUME 90.1 fl (80.0-94.0); MEAN CORPUSCULAR HGB 27.6 pg (27.0-31.0); MEAN CORPUSCULAR HGB CONC 30.7 g/dl (33.0-37.0); MEAN PLATELET VOLUME 10.7 fl (9.6-12.3); NUCLEATED RED BLOOD CELL 0.1 10*3/uL (0.0-0.0); NUCLEATED RED BLOOD CELL 1.2 % (0.0-0.0); PLATELET COUNT AUTOMATED 219 10*3/uL (130-400); RED BLOOD COUNT 3.62 10*6/uL (4.50-5.90); RED CELL DISTRI WIDTH 14.8 % (0-14.5); WHITE BLOOD COUNT 7.2 10*3/uL (4.8-10.8)
[2020-06-25 06:47] LABS: ALBUMIN 2.5 gm/dl (3.1-4.5); BUN 18 mg/dl (7-24); CHLORIDE 101 mmol/L (98-107); CHOLESTEROL 125 mg/dL (<200); CREATININE 0.88 mg/dL (0.70-1.30); HDL CHOLESTEROL 23 mg/dl (40-60); POTASSIUM 3.6 mmol/L (3.5-5.1); SGOT/AST 16 IU/L (3-35); SGPT/ALT 27 U/L (12-78); SODIUM 138 mmol/L (136-145); TRIGLYCERIDES 452 mg/dl (<150)
[2020-06-25 06:50] LABS: ALKALINE PHOSPHATASE 99 U/L (45-117); TOTAL PROTEIN 6.4 gm/dL (6.4-8.2)
[2020-06-25 07:26] LABS: BASOPHILS 4 % (0-1); PLATELET SUFFICIENCY NORMAL (NORMAL); POLYCHROMASIA SLIGHT; TOTAL CELLS COUNTED 100 #CELLS
--- NOTE | 2020-06-25 07:30 | NUR ---
INTRODUCED SELF TO PATIENT, BED IN LOW POSITION WITH WHEEL LOCKS ENGAGED, SIDE RAILS UP X 2 FOR TURNING AND REPOSITIONING, CALL LIGHT WITHIN REACH, NO NEEDS VOICED AT THIS TIME WHITE BOARD UPDATED.
[2020-06-25 08:00] VITALS: BP 120/68
--- NOTE | 2020-06-25 08:00 | NUR ---
ARRIVED ON SHIFT, REPORT RECEIVED FROM OFFGOING NURSE, ASSUMED CARE OF PATIENT.
--- NOTE | 2020-06-25 08:23 | NUR ---
CM in to see patient. He is upset at this time. Will follow up at a later time.
--- NOTE | 2020-06-25 08:23 | NUR ---
IN TO SEE PATIENT, NOTICED HE HAD A BOTTLE OF TABACCO SPIT, ADVISED PATIENT THAT HOSPITAL POLICY DOES NOT ALLOW THE USE OF TABACCO PRODUCTS, PATIENT RELUCTANLY GAVE ME A CAN OF HIS SNUFF, NOTICED HE STILL HAD ANOTHER CAN, HE RLUCTANLY GAVE ME THAT ONE WELL, LOCKED THEM UP IN [facility], ASKED IF HE NEEDED ASSISTANCE INTO THE BATHROOM, HE SLAMMED DOOR SHUT WITH IS FOOT, AFTER I LEFT ROOM HE STARTED TO CRY.
--- NOTE | 2020-06-25 08:34 | NUR ---
Shift chart check completed.
--- NOTE | 2020-06-25 10:43 | NUR ---
Research Executive in to talk to patient. Patient states lives at home alone with his family checking in on him. There are 0 steps in the home. Physician: Dr. 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 He lives at home alone with his dog and his family checking in on him. He is independent in his ADLs and ambulates with a cane. Discussed home health care services and he declines. CM will continue to follow for any discharge planning needs. When medically stable he will be discharged to home. He states his sister will provide transportation on discharge. NANNETTE GONZALEZ
[2020-06-25 12:00] VITALS: BP 123/51
[2020-06-25 16:16] VITALS: BP 130/56
[2020-06-25 20:00] VITALS: BP 142/60
[2020-06-26] VITALS: BP 147/58
--- NOTE | 2020-06-26 04:00 | NUR ---
PATIENT RESTING ON LT SIDE. RESPS EASY AND REG ON 3L NC. BED IN LOW, LOCKED POS CALL LIGHT IN REACH
[2020-06-26 06:35] LABS: BUN 13 mg/dl (7-24); CHLORIDE 102 mmol/L (98-107); CREATININE 0.73 mg/dL (0.70-1.30); POTASSIUM 4.4 mmol/L (3.5-5.1); SODIUM 134 mmol/L (136-145)
--- NOTE | 2020-06-26 07:00 | NUR ---
ARRIVED ON SHIFT, REPORT RECEIVED FROM OFFGOING NURSE,ASUMED CARE OF PATIENT.
--- NOTE | 2020-06-26 07:35 | NUR ---
INSULIN GIVEN PER SLIDING SCALE. PATIENT OFFERS NO COMPLAINTS. CALL LIGTH IN REACH
--- NOTE | 2020-06-26 07:50 | NUR ---
INTRODUCED SELF TO PATIENT, BED IN LOW POSITION, WHEEL LOCKS ENGAGED, SIDE RAILS UP X 2 FOR TURNING AND REPOSITIONING, PATIENT SITTING ON EDGE OF BED, CALL LIGHT WITHIN REACH, NO NEEDS VOICED AT THIS TIME. WHITE BOARD UPDATED.
--- NOTE | 2020-06-26 09:24 | NUR ---
Shift chart check completed.
[2020-06-26 12:00] VITALS: BP 156/73
[2020-06-26 16:00] VITALS: BP 160/68
--- NOTE | 2020-06-26 16:00 | NUR ---
CALL PLACED TO DR. MAURICIO OFFICE, ADVISED OF CONSULT FOR SHOULDER PAIN.
--- NOTE | 2020-06-26 19:30 | NUR ---
PT RESTING IN BED. VOICES NO CONCERNS AT THIS TIME. RESPS EASY AND NON LABORED. NO S/S OF DISTRESS NOTED. VSS. WHITE BOARD UPDATED. POC DISCUSSED W PT. A/O X3. MINIMAL SOB W EXERT.XR OF RIGHT SHOULDER PENDING. WILL CONTINUE TO MONITOR. CALL LIGHT WITHIN REACH.
[2020-06-26 20:00] VITALS: BP 117/74
[2020-06-27] VITALS: BP 146/63
--- NOTE | 2020-06-27 02:59 | NUR ---
Patient sleeping. Respirations relaxed and easy. Siderails up . [place] on. call light within reach. HISSOM,TRUPTI
--- NOTE | 2020-06-27 03:37 | NUR ---
24 HR chart check completed.
--- NOTE | 2020-06-27 03:51 | NUR ---
METER TESTER CALLED-STATES PT IS RINGING OFF VFIB/VTACH.CHECKED ON PT TO FIND HIM SITTING UP IN BED. STATES HE IS FINE. NSR AT THIS TIME. NO S/S OF DISTRESS NOTED. WILL CONTINUE TO MONITOR.
[2020-06-27 06:16] LABS: BUN 12 mg/dl (7-24); CHLORIDE 104 mmol/L (98-107); CREATININE 0.69 mg/dL (0.70-1.30); POTASSIUM 4.6 mmol/L (3.5-5.1); SODIUM 139 mmol/L (136-145)
--- NOTE | 2020-06-27 06:24 | NUR ---
PTS BLOOD SUGAR 171. REFUSING COVERAGE. STATING 171 IS "LOW FOR HIM". WHEN ASKED, PT STATES HE IS ASYMPTOMATIC.
--- NOTE | 2020-06-27 07:40 | NUR ---
DR ALEXIS GAVE STEROID INJECTIONS AT BEDSIDE THIS AM
--- NOTE | 2020-06-27 08:15 | NUR ---
PATIENT REPORTED FEELING SOME RELIEF AFTER STEROID INJECTION.
[2020-06-27 12:00] VITALS: BP 143/51
[2020-06-27 16:00] VITALS: BP 132/70
[2020-06-27 20:00] VITALS: BP 130/72
--- NOTE | 2020-06-27 20:33 | NUR ---
Discharge instructions reviewed with patient/family. Patient receptive and verbalizes understanding. Follow-up care arranged. Written instructions given to patient/family. TRUPTI MONTOYA The Discharge Plan/Instructions have been completed. Hep Lock discontinued. Site asymptomatic. Pressure applied. Sterile dressing applied. TRUPTI MONTOYA
== END 2020-06-27 20:33 | disposition home or self-care (01) | DRG 420 ==
LOC: ED 18:01 → 4E 20:22 → EDHOLD 20:22 → 4E 20:54
PROVIDERS: Emergency Medicine; Internal Medicine; ADMIT Internal Medicine; ATTEND Internal Medicine
PROC: 3E0U33Z Introduction of Anti-inflammatory into Joints, Percutaneous Approach (ICD-10-PCS; principal; 2020-06-27)
PROC: 3E0U3BZ Introduction of Anesthetic Agent into Joints, Percutaneous Approach (ICD-10-PCS; 2020-06-27)
DX: E11.10 Type 2 diabetes mellitus with ketoacidosis without coma (principal); E44.0 Moderate protein-calorie malnutrition; E03.9 Hypothyroidism, unspecified; E66.2 Morbid (severe) obesity with alveolar hypoventilation; F90.9 Attention-deficit hyperactivity disorder, unspecified type; I27.81 Cor pulmonale (chronic); K21.9 Gastro-esophageal reflux disease without esophagitis; I50.9 Heart failure, unspecified; J96.11 Chronic respiratory failure with hypoxia; E55.9 Vitamin D deficiency, unspecified; E78.5 Hyperlipidemia, unspecified; K83.8 Other specified diseases of biliary tract; M75.41 Impingement syndrome of right shoulder; M19.011 Primary osteoarthritis, right shoulder; I11.0 Hypertensive heart disease with heart failure; F17.220 Nicotine dependence, chewing tobacco, uncomplicated; M25.511 Pain in right shoulder; Z68.44 Body mass index [BMI] 60.0-69.9, adult; Z99.81 Dependence on supplemental oxygen; Z88.6 Allergy status to analgesic agent; Z83.3 Family history of diabetes mellitus; Z79.899 Other long term (current) drug therapy

== ENCOUNTER 2020-08-05 10:51 | Emergency (ER) | payer OTHER ==
[~2020-08-05] VITALS: Wt 181.4 kg
[2020-08-05 12:09] LABS: BASO # 0.1 10*3/uL (0.0-0.1); BASO % 0.8 % (0.0-1.0); EOS # 0.1 10*3/uL (0.0-0.4); HEMATOCRIT 37.5 % (42.0-52.0); LYMPH # 1.1 10*3/uL (1.3-4.4); LYMPH % 17.4 % (27.0-41.0); MEAN CORPUSCULAR HGB 25.9 pg (27.0-31.0); MEAN CORPUSCULAR HGB CONC 30.1 g/dl (33.0-37.0); MEAN PLATELET VOLUME 9.9 fl (9.6-12.3); MONO # 0.6 10*3/uL (0.1-1.0); MONO % 8.8 % (3.0-9.0); NEUT # 4.6 10*3/uL (2.3-7.9); NEUT % 70.5 % (47.0-73.0); NUCLEATED RED BLOOD CELL 0.6 % (0.0-0.0); PLATELET COUNT AUTOMATED 310 10*3/uL (130-400); RED BLOOD COUNT 4.36 10*6/uL (4.50-5.90); WHITE BLOOD COUNT 6.5 10*3/uL (4.8-10.8)
[2020-08-05 12:28] LABS: ALKALINE PHOSPHATASE 97 U/L (45-117); BUN 27 mg/dl (7-24); CHLORIDE 101 mmol/L (98-107); CREATININE 1.11 mg/dL (0.70-1.30); SGOT/AST 15 IU/L (3-35); SGPT/ALT 22 U/L (12-78); SODIUM 141 mmol/L (136-145)
[2020-08-05 12:30] LABS: TROPONIN I < 0.015 ng/ml (<0.045)
[2020-08-05] MEDS ORDERED: ZITHROMAX250 MG PO ×2 (12:42)
== END 2020-08-05 12:50 | disposition home or self-care (01) ==
LOC: ED 10:51
PROVIDERS: Physician Assistant
DX: J18.9 Pneumonia, unspecified organism (principal); Z88.8 Allergy status to other drugs, medicaments and biological substances; Z79.899 Other long term (current) drug therapy

== ENCOUNTER 2020-08-17 20:20 | Inpatient (IN) | payer OTHER ==
[~2020-08-17] VITALS: Ht 172.7 cm; Wt 175.1 kg
[~2020-08-17 20:20] MED LIST changes: +ZITHROMAX250 MG PO
[2020-08-17 20:27] VITALS: BP 181/70
--- NOTE | 2020-08-17 20:37 | NUR ---
INTRODUCED SELF TO PATIENT. PATIENT C/O BILAT LEG PAIN, DENIES TRAUMA, STATES RAN OUT OF NEURONTIN YESTERDAY. PATIENT ALSO STATES NORMALLY ON OXYGEN BUT DID NOT BRING IT TO THE HOSPITAL. PLACED ON NASAL CANNULA AT 3L/MIN AND OXYGEN SATS UP TO 100%. INITIAL SAT PRIOR TO OXYGEN 91%.
--- NOTE | 2020-08-17 20:45 | NUR ---
PHYSICIAN TO BEDSIDE FOR EVAL.
[2020-08-17 21:05] LABS: BASO % 0.7 % (0.0-1.0); EOS # 0.1 10*3/uL (0.0-0.4); EOS % 1.6 % (1.0-4.0); HEMATOCRIT 35.4 % (42.0-52.0); LYMPH % 16.8 % (27.0-41.0); MEAN CELL VOLUME 86.8 fl (80.0-94.0); MEAN CORPUSCULAR HGB 25.2 pg (27.0-31.0); MEAN CORPUSCULAR HGB CONC 29.1 g/dl (33.0-37.0); MEAN PLATELET VOLUME 9.9 fl (9.6-12.3); MONO # 0.5 10*3/uL (0.1-1.0); MONO % 8.1 % (3.0-9.0); NEUT # 4.1 10*3/uL (2.3-7.9); NEUT % 72.4 % (47.0-73.0); PLATELET COUNT AUTOMATED 340 10*3/uL (130-400); RED BLOOD COUNT 4.08 10*6/uL (4.50-5.90); RED CELL DISTRI WIDTH 14.4 % (0-14.5); WHITE BLOOD COUNT 5.7 10*3/uL (4.8-10.8)
[2020-08-17 21:23] LABS: ALBUMIN 2.9 gm/dl (3.1-4.5); ALKALINE PHOSPHATASE 80 U/L (45-117); BUN 19 mg/dl (7-24); CHLORIDE 99 mmol/L (98-107); CREATININE 1.25 mg/dL (0.70-1.30); POTASSIUM 4.2 mmol/L (3.5-5.1); SGOT/AST 11 IU/L (3-35); SGPT/ALT 20 U/L (12-78); SODIUM 138 mmol/L (136-145); TOTAL PROTEIN 6.5 gm/dL (6.4-8.2)
[2020-08-17 21:24] LABS: TROPONIN I < 0.015 ng/ml (<0.045)
--- NOTE | 2020-08-17 22:10 | NUR ---
PATIENT UP TO BATHROOM IN ROOM TO DEFECATE.
[2020-08-17 23:29] VITALS: BP 132/51
--- NOTE | 2020-08-17 23:29 | NUR ---
SALINE LOCK STARTED BY ZION LYNN. #20 TO UNDERSIDE OF LEFT FOREARM. ADMISSION IN PROGRESS.
--- NOTE | 2020-08-17 23:35 | NUR ---
REPORT TO ZION IRBY AT 2500. PATIENT TO GO TO ROOM 521
[2020-08-18 00:32] VITALS: BP 148/74
--- NOTE | 2020-08-18 06:37 | NUR ---
Dr. Barker notified of consult and states they will see him this morning.
--- NOTE | 2020-08-18 06:38 | NUR ---
attempt to call podaitry resident cell phone number but voicemail has not been set up yet.
--- NOTE | 2020-08-18 06:48 | NUR ---
Dr. Michael notified on new consult states will see patient later today.
[2020-08-18 07:06] LABS: BASO % 0.7 % (0.0-1.0); EOS # 0.1 10*3/uL (0.0-0.4); EOS % 2.3 % (1.0-4.0); HEMATOCRIT 34.8 % (42.0-52.0); LYMPH # 1.2 10*3/uL (1.3-4.4); LYMPH % 21.8 % (27.0-41.0); MEAN CELL VOLUME 87.2 fl (80.0-94.0); MEAN CORPUSCULAR HGB 25.6 pg (27.0-31.0); MEAN CORPUSCULAR HGB CONC 29.3 g/dl (33.0-37.0); MONO # 0.6 10*3/uL (0.1-1.0); MONO % 9.8 % (3.0-9.0); NEUT # 3.7 10*3/uL (2.3-7.9); PLATELET COUNT AUTOMATED 322 10*3/uL (130-400); RED BLOOD COUNT 3.99 10*6/uL (4.50-5.90); RED CELL DISTRI WIDTH 14.2 % (0-14.5); WHITE BLOOD COUNT 5.6 10*3/uL (4.8-10.8)
[2020-08-18 07:27] LABS: ALBUMIN 2.9 gm/dl (3.1-4.5); ALKALINE PHOSPHATASE 72 U/L (45-117); BUN 15 mg/dl (7-24); CHLORIDE 101 mmol/L (98-107); CREATININE 0.88 mg/dL (0.70-1.30); FREE T4 1.25 ng/dl (0.76-1.46); POTASSIUM 4.1 mmol/L (3.5-5.1); SGOT/AST 12 IU/L (3-35); SODIUM 140 mmol/L (136-145); TOTAL PROTEIN 6.2 gm/dL (6.4-8.2)
[2020-08-18 07:31] LABS: SGPT/ALT 20 U/L (12-78)
[2020-08-18 08:00] VITALS: BP 146/62
--- NOTE | 2020-08-18 08:50 | NUR ---
OT NOTE Occupational therapy order received, chart reviewed, and attempted to see patient at bedside. Patient declined an OT evaluation at this time stating "I just got here..they need to figure out what's wrong with me" Will check back at a later date for an OT eval. Thank you. Zoe Reid, OTR/L
--- NOTE | 2020-08-18 09:00 | NUR ---
[employer] [employer] Supervisor in to talk to patient. Patient states lives at home with alone. There are no steps in the home. Physician: [facility]: [facility] Home health services: none Patient's level of ADLs: min assistance Patient has working utilities: all working DME: home oxygen at 2l/min for [employer] Follow-up physician's appointment after d/c: patient chooses to make own follow up appointment when discharge Does patient want to access PORTAL?: no Discharge plan discussed with patient, he states he lives at home, he is independent in adls and ambulation, he states he will return home and at this time denies any home needs, case management will follow. MARIELENA ALLEN
--- NOTE | 2020-08-18 09:10 | NUR ---
PHYSICAL THERAPY Umesh ramirez attempted to see patient at the bedside pt declining at this time stating "I just got here, they need to figure out what is wrong with heart" will follow at a later date. Fani Anderson PT
[2020-08-18 12:00] VITALS: BP 123/84
[2020-08-18 16:00] VITALS: BP 152/68
[2020-08-18 20:00] VITALS: BP 152/73
--- NOTE | 2020-08-18 20:28 | NUR ---
24 HR chart check completed.
--- NOTE | 2020-08-18 21:00 | NUR ---
RESTING IN BED WITH EYES CLOSED AND NO ACUTE DISTRESS NOTED. RESPIRATIONS EASY. LUNGS DIMINISHED. PULSE OX 98% 3L. NON-PROD COUGH. CALL LIGHT WITHIN REACH. NO VOICED COMPLAINTS.
--- NOTE | 2020-08-18 22:47 | NUR ---
RESTORIL PROVIDED TO ASSIST WITH SLEEP. WILL MONITOR.
--- NOTE | 2020-08-18 23:45 | NUR ---
MEDS APPEAR EFFECTIVE. SLEEPING. RESPIRATIONS EASY. O2 IN USE. CALL LIGHT WITHIN REACH
[2020-08-19] VITALS: BP 137/85; BP 155/67
--- NOTE | 2020-08-19 00:30 | NUR ---
SLEEPING. NO DISTRESS NOTED. RESPIRATIONS EASY. VSS. CALL LIGHT WITHIN REACH.
--- NOTE | 2020-08-19 05:30 | NUR ---
BSG 86. PATIENT ASYMPTOMATIC, PROVIDED WITH JUICE
--- NOTE | 2020-08-19 06:00 | NUR ---
SLEPT THROUGHOUT NIGHT WITH NO DISTRESS NOTED. RESPIRATIONS EASY. O2 IN USE. CALL LIGHT WITHIN REACH. NO VOICED COMPLAINTS THIS SHIFT
[2020-08-19 07:24] LABS: BUN 14 mg/dl (7-24); CHLORIDE 99 mmol/L (98-107); SODIUM 140 mmol/L (136-145)
[2020-08-19 08:00] VITALS: BP 150/86
[2020-08-19 12:00] VITALS: BP 144/70
--- NOTE | 2020-08-19 14:30 | NUR ---
Occupational Therapy evaluation completed on 5 with full eval to follow. Precautions include BLE edema, morbid obesity, O2 @3lpm. At this time no further OT indicated. Patient is performing all ADLs and functional mobility in his room as prior to admission. He is in agreement that no OT is indicated. Thank you. Luz Marina Stevenson OTR/l
--- NOTE | 2020-08-19 14:30 | NUR ---
PHYSICAL THERAPY Physical Therapy evaluation completed on 5th floor with full evaluation to follow. Recommend physical therapy per plan of care and home w HH upon discharge. Thank you for this referral. Fani Anderson PT
[2020-08-19 16:00] VITALS: BP 175/72
[2020-08-19 20:00] VITALS: BP 144/82
--- NOTE | 2020-08-19 20:11 | NUR ---
pt resting in bed/ no distress noted will monitor
[2020-08-19 23:37] VITALS: BP 134/82
[2020-08-20 07:14] LABS: BASO # 0.1 10*3/uL (0.0-0.1); BASO % 0.9 % (0.0-1.0); EOS # 0.2 10*3/uL (0.0-0.4); EOS % 2.8 % (1.0-4.0); HEMATOCRIT 39.7 % (42.0-52.0); LYMPH # 1.1 10*3/uL (1.3-4.4); LYMPH % 17.3 % (27.0-41.0); MEAN CELL VOLUME 86.1 fl (80.0-94.0); MEAN CORPUSCULAR HGB 24.5 pg (27.0-31.0); MEAN CORPUSCULAR HGB CONC 28.5 g/dl (33.0-37.0); MEAN PLATELET VOLUME 9.6 fl (9.6-12.3); MONO # 0.7 10*3/uL (0.1-1.0); NEUT # 4.4 10*3/uL (2.3-7.9); NEUT % 67.8 % (47.0-73.0); PLATELET COUNT AUTOMATED 380 10*3/uL (130-400); RED BLOOD COUNT 4.61 10*6/uL (4.50-5.90); RED CELL DISTRI WIDTH 14.1 % (0-14.5); WHITE BLOOD COUNT 6.5 10*3/uL (4.8-10.8)
[2020-08-20 07:35] LABS: BUN 12 mg/dl (7-24); CHLORIDE 98 mmol/L (98-107); CREATININE 0.79 mg/dL (0.70-1.30); POTASSIUM 3.8 mmol/L (3.5-5.1); SODIUM 140 mmol/L (136-145)
[2020-08-20 08:00] VITALS: BP 160/94
[2020-08-20 12:00] VITALS: BP 141/69
[2020-08-20 16:00] VITALS: BP 155/59
[2020-08-20 20:00] VITALS: BP 122/61
[2020-08-21] VITALS: BP 152/54
[2020-08-21 06:40] LABS: BUN 14 mg/dl (7-24); CHLORIDE 97 mmol/L (98-107); CREATININE 0.84 mg/dL (0.70-1.30); SODIUM 141 mmol/L (136-145)
[2020-08-21 08:00] VITALS: BP 133/60
[2020-08-21 12:00] VITALS: BP 109/51
--- NOTE | 2020-08-21 12:43 | NUR ---
PHYSICAL THERAPY Patient was eating lunch this pm when approached for therapy visit and stated he was going to be going home this afternoon for d/c. Patient declined treatment at this time. No services provided this date. Memo Peña DIVE SUPERINTENDENT
--- NOTE | 2020-08-21 14:53 | NUR ---
PHYSICAL THERAPY CO-SIGN I approve of the Physical Therapy notes written above. Fani Anderson PT
[2020-08-21 16:00] VITALS: BP 156/68; BP 90/60; BP 99/33
[2020-08-21 20:00] VITALS: BP 120/64; BP 162/69
--- NOTE | 2020-08-21 23:49 | NUR ---
CHART CHECK COMPLETE.
[2020-08-22] VITALS: BP 134/51
[2020-08-22 06:35] LABS: CHLORIDE 99 mmol/L (98-107); CREATININE 1.12 mg/dL (0.70-1.30); POTASSIUM 4.1 mmol/L (3.5-5.1); SODIUM 141 mmol/L (136-145)
[2020-08-22 06:38] LABS: BUN 24 mg/dl (7-24)
[2020-08-22 08:00] VITALS: BP 122/65
--- NOTE | 2020-08-22 11:29 | NUR ---
DISCHARGE INSTRUCTION GIVEN. VERBALIZED UNDERSTANDING. BP 114/62. IN STABLE CONDITION. ALL BELONGINGS PACKED. WAITING ON RIDE.
--- NOTE | 2020-08-22 11:39 | NUR ---
DISCHARGED VIA W/C WITH AIDE. FATHER IS MEETING HIM AT FRONT DOOR. TOOK ALL BELONGINGS WITH HIM.
--- NOTE | 2020-08-22 11:43 | NUR ---
PIC OF LEGS NOT TAKE D/T UNABOOTS ON AND NOT SUPPOSE TO BE REMOVED.
== END 2020-08-22 11:54 | disposition home or self-care (01) | DRG 194 ==
LOC: ED 20:20 → 5E 22:34 → EDHOLD 22:34 → 5E 22:48
PROVIDERS: Internal Medicine; Internal Medicine Nephrology; ADMIT Internal Medicine; ATTEND Internal Medicine
DX: I11.0 Hypertensive heart disease with heart failure (principal); E66.2 Morbid (severe) obesity with alveolar hypoventilation; D64.9 Anemia, unspecified; J96.11 Chronic respiratory failure with hypoxia; E44.0 Moderate protein-calorie malnutrition; I89.0 Lymphedema, not elsewhere classified; E78.5 Hyperlipidemia, unspecified; E03.9 Hypothyroidism, unspecified; E55.9 Vitamin D deficiency, unspecified; F90.9 Attention-deficit hyperactivity disorder, unspecified type; Z77.22 Contact with and (suspected) exposure to environmental tobacco smoke (acute) (chronic); I27.20 Pulmonary hypertension, unspecified; I50.813 Acute on chronic right heart failure; I50.33 Acute on chronic diastolic (congestive) heart failure; L97.829 Non-pressure chronic ulcer of other part of left lower leg with unspecified severity; L97.819 Non-pressure chronic ulcer of other part of right lower leg with unspecified severity; I27.81 Cor pulmonale (chronic); E10.65 Type 1 diabetes mellitus with hyperglycemia; K21.9 Gastro-esophageal reflux disease without esophagitis; Z99.81 Dependence on supplemental oxygen; Z87.01 Personal history of pneumonia (recurrent); Z88.6 Allergy status to analgesic agent; Z83.3 Family history of diabetes mellitus; Z81.3 Family history of other psychoactive substance abuse and dependence; Z79.899 Other long term (current) drug therapy; Z68.44 Body mass index [BMI] 60.0-69.9, adult

== ENCOUNTER 2020-09-08 17:52 | Emergency (ER) | payer OTHER | END 2020-09-08 20:40 | disposition home or self-care (01) | LOC: ED 17:52 | DX: S46.911A Strain of unspecified muscle, fascia and tendon at shoulder and upper arm level, right arm, initial encounter (principal); S93.402A Sprain of unspecified ligament of left ankle, initial encounter; S93.401A Sprain of unspecified ligament of right ankle, initial encounter; Z88.8 Allergy status to other drugs, medicaments and biological substances; Z79.899 Other long term (current) drug therapy; Z79.2 Long term (current) use of antibiotics; Z79.4 Long term (current) use of insulin; X58.XXXA Exposure to other specified factors, initial encounter; Y93.89 Activity, other specified; Y92.89 Other specified places as the place of occurrence of the external cause; Y99.8 Other external cause status ==

== ENCOUNTER 2020-09-14 12:32 | Inpatient (IN) | payer OTHER ==
[~2020-09-14] VITALS: Ht 172.7 cm; Wt 192.9 kg
[2020-09-14 12:38] VITALS: BP 158/65
--- NOTE | 2020-09-14 16:33 | NUR ---
PATIENT RESTING IN BED ON CELL PHONE. RR EASY AND NON-LABORED. CALL LIGHT WITHIN REACH. APPEARS TO BE IN NO DISTRESS AT THIS TIME.
--- NOTE | 2020-09-14 18:07 | NUR ---
PATIENT DENIES WOUNDS AT THIS TIME.
--- NOTE | 2020-09-14 18:07 | NUR ---
PATIENT UP AND ON BEDSIDE COMMODE.
[2020-09-14 18:58] VITALS: BP 147/62
--- NOTE | 2020-09-14 19:19 | NUR ---
NURSE TO NURSE REPORT GIVEN TO THIS RN
--- NOTE | 2020-09-14 20:38 | NUR ---
PATIENT BROUGHT BACK FROM US AND CT SCAN AT THIS TIME. NO DISTRESS NOTED. RN WILL CONT TO MONITOR. CALL LIGHT WITHIN REACH
--- NOTE | 2020-09-14 22:20 | NUR ---
MULTIPLE ATTEMPTS AT CARTY CATH PLACEMENT UNSUCCESSSFUL. PATIENT REFUSED FOR ANY MORE ATTEMPTS. PATIENT WAS TOLD UNABLE TO AMBULATE ON BILATERAL SPLINTS THAT WERE PLACED BY PODIATRY KATHERIN. PATIENT STATES HE SITS TO URINATED AND USE BATHROOM UNABLE TO USE URINAL.
--- NOTE | 2020-09-14 23:15 | NUR ---
PATIENT ACCOUNT MANAGER RELIEF LIGHT AT THIS TIME, AND AMBULATED TO BEDSIDE COMMODE ON OWN WITHOUT ASSISTANCE AND EDUCATION ON NOT BEING ABLE TO WALK ON SPLINTS.
--- NOTE | 2020-09-15 00:05 | NUR ---
PATIENT GOING TO XRAY AT THIS TIME
[2020-09-15 00:06] VITALS: BP 142/86
--- NOTE | 2020-09-15 01:55 | NUR ---
RESIDENT CALLED AT THIS TIME. PATIENT C.O OF PAIN IN BILATERAL LOWER EXTREMITIES. STATES PUTTING ORDER IN FOR DILAUDID 0.5MG IV. WILL CONT TO MONITOR
--- NOTE | 2020-09-15 05:28 | NUR ---
PATIENT UP TO SIDE OF BED USING URINAL AT THIS TIME.
[2020-09-15 06:15] LABS: ALBUMIN 2.7 gm/dl (3.1-4.5); ALKALINE PHOSPHATASE 79 U/L (45-117); BUN 24 mg/dl (7-24); CHLORIDE 100 mmol/L (98-107); CHOLESTEROL 116 mg/dL (<200); CREATININE 0.95 mg/dL (0.70-1.30); FREE T4 1.34 ng/dl (0.76-1.46); HDL CHOLESTEROL 27 mg/dl (40-60); LDL CHOLESTEROL 32 mg/dL (9-159); POTASSIUM 4.4 mmol/L (3.5-5.1); SGOT/AST 12 IU/L (3-35); SGPT/ALT 20 U/L (12-78); SODIUM 139 mmol/L (136-145); TOTAL PROTEIN 6.7 gm/dL (6.4-8.2); TRIGLYCERIDES 285 mg/dl (<150); VLDL CHOLESTEROL 57 mg/dL (6-40)
[2020-09-15 06:19] LABS: BASO % 0.7 % (0.0-1.0); EOS # 0.1 10*3/uL (0.0-0.4); EOS % 1.9 % (1.0-4.0); HEMATOCRIT 31.3 % (42.0-52.0); LYMPH # 0.9 10*3/uL (1.3-4.4); LYMPH % 15.4 % (27.0-41.0); MEAN CELL VOLUME 85.3 fl (80.0-94.0); MEAN CORPUSCULAR HGB CONC 29.4 g/dl (33.0-37.0); MEAN PLATELET VOLUME 11.1 fl (9.6-12.3); MONO # 0.7 10*3/uL (0.1-1.0); NEUT # 4.1 10*3/uL (2.3-7.9); NEUT % 69.7 % (47.0-73.0); NUCLEATED RED BLOOD CELL 0.3 % (0.0-0.0); PLATELET COUNT AUTOMATED 268 10*3/uL (130-400); RED BLOOD COUNT 3.67 10*6/uL (4.50-5.90); RED CELL DISTRI WIDTH 15.8 % (0-14.5); WHITE BLOOD COUNT 5.9 10*3/uL (4.8-10.8)
[2020-09-15 06:36] LABS: MEAN CORPUSCULAR HGB 25.1 pg (27.0-31.0)
[2020-09-15 06:47] LABS: ACT PARTIAL THROMBO TIME 25.4 SECONDS (20.0-32.1)
--- NOTE | 2020-09-15 07:00 | NUR ---
REPORT FROM JOSE DONOVAN.
[2020-09-15 07:22] VITALS: BP 168/51
--- NOTE | 2020-09-15 07:42 | NUR ---
PATIENT DENIES WOUND PHOTOS AT THIS TIME.
--- NOTE | 2020-09-15 08:03 | NUR ---
PATIENT RESTING IN BED. PATIENT APPEARS TO BE IN NO DISTRESS AT THIS TIME. RR EASY AND NON-LABORED. CALL LIGHT WITHIN REACH.
[2020-09-15 09:19] LABS: VITAMIN D, 25-HYDROXY 29.9 ng/mL (30-100)
--- NOTE | 2020-09-15 12:37 | NUR ---
GAVE PATIENT LUNCH TRAY.
--- NOTE | 2020-09-15 14:22 | NUR ---
REQUESTED AND MEDICATED WITH IV DILAUDED FOR PAIN RATES 07/04
[2020-09-15 14:45] VITALS: BP 153/62
--- NOTE | 2020-09-15 15:35 | NUR ---
THIS RN CALLED DR. HOLLY AND ASKED IF HE WANTED THIS RN TO USE THE SLIDING SCALE OR THE ORDER FOR 15 UNITS HUMALOG 30 MINS BEFORE MEALS ORDER. DR. HOLLY STATES TO GIVE 15 UNITS BEFORE MEAL AND DO NOT USE THE SLIDING SCALE.
[2020-09-15 16:22] VITALS: BP 145/50
--- NOTE | 2020-09-15 16:45 | NUR ---
[facility] , under the services of CHRIS Thomas MD with a diagnosis of BLE TIB/FIB FRACTURES. Chief complaint is PAIN. Patient arrived via bed from ER. Monitor applied. Initial assessment completed. Vital signs taken and recorded. CHRIS THOMAS MD notified of admission to the unit. Orders received. See assessment for past medical history, medications and allergies. Patient and/or family oriented to unit. [facility] visitation policy reviewed. Clothing/patient valuable form completed. NATHEN CASTILLO
--- NOTE | 2020-09-15 18:42 | NUR ---
C/O PAIN, STATES PERCOCET DOES NOT HELP TH PAIN. WILL MONITOR. CALL DR. HOLLY.
--- NOTE | 2020-09-15 18:46 | NUR ---
TRIED TO REACH DR. HOLLY IN REGARDS TO PT'S PAIN. PER PT, PERCOCET DOES NOT HELP. WILL MONITOR.
[2020-09-15 20:00] VITALS: BP 152/68
--- NOTE | 2020-09-15 21:18 | NUR ---
PATIENT ORDERED BARIATRIC BED D/T WEIGHT OVER 400 LBS. PATIENT REFUSES TO BE MOVED INTO BARIATRIC BED. STATES HE HATES THEM. BANDSAW OPERATOR NOTIFIED.
--- NOTE | 2020-09-15 21:52 | NUR ---
PATIENT MEDICATED WITH PERCOCET FOR COMPLAINTS OF BILATERAL LEG PAIN. WILL MONITOR FOR EFFECTIVENESS. CALL LIGHT IN REACH.
--- NOTE | 2020-09-15 22:45 | NUR ---
PERCOCET EFFECTIVE. PATIENT IN BED TALKING ON CELL PHONE. WILL CONTINUE TO MONITOR.
[2020-09-16] VITALS (9 sets, daily range): BP systolic 104–183; BP diastolic 45–76
--- NOTE | 2020-09-16 00:52 | NUR ---
SPOKE WITH DR. MEDINA FOR PAIN CONTROL. PATIENT IS HOLLERING OUT IN PAIN, 0.5MG DILAUDID ONCE ORDERED.
--- NOTE | 2020-09-16 01:17 | NUR ---
ONE TIME DOSE OF DILAUDID GIVEN AT THIS TIME FOR PATIENT C/O BILATERAL FOOT/LEG PAIN RATING A 10/10. WILL CONTINUE TO MONITOR, SEE INTERVENTIONS.
[2020-09-16 06:31] LABS: BASO % 0.7 % (0.0-1.0); EOS # 0.2 10*3/uL (0.0-0.4); EOS % 3.3 % (1.0-4.0); LYMPH # 1.2 10*3/uL (1.3-4.4); LYMPH % 20.5 % (27.0-41.0); MEAN CORPUSCULAR HGB 25.5 pg (27.0-31.0); MEAN CORPUSCULAR HGB CONC 29.4 g/dl (33.0-37.0); MEAN PLATELET VOLUME 10.4 fl (9.6-12.3); MONO # 0.6 10*3/uL (0.1-1.0); MONO % 10.3 % (3.0-9.0); NEUT # 3.7 10*3/uL (2.3-7.9); PLATELET COUNT AUTOMATED 297 10*3/uL (130-400); RED BLOOD COUNT 3.68 10*6/uL (4.50-5.90); RED CELL DISTRI WIDTH 15.8 % (0-14.5); WHITE BLOOD COUNT 5.7 10*3/uL (4.8-10.8)
[2020-09-16 06:50] LABS: BUN 15 mg/dl (7-24); CHLORIDE 101 mmol/L (98-107); CREATININE 0.87 mg/dL (0.70-1.30); POTASSIUM 4.3 mmol/L (3.5-5.1); SODIUM 137 mmol/L (136-145)
--- NOTE | 2020-09-16 08:08 | NUR ---
AGRICULTURE TECHNICIAN ATTEMPTED TO CALL PATIENTS ROOM, NO ANSWER. WILL REACH OUT TO PATIENT AT A LATER TIME TO DISCUSS DISCHARGE PLANS. SNF VS HOME HEALTH.
--- NOTE | 2020-09-16 09:40 | NUR ---
Pneumatic Tester in to talk to patient. Patient states lives at home with alone. There are no steps in the home. [facility]ician: [facility] Home health services: none Patient's level of ADLs: min assistance Patient has working utilities: all working DME: home oxygen at 2l/min for [facility] Follow-up physician's appointment after d/c: patient chooses to make own follow up appointment at discharge Does patient want to access PORTAL?: no Discharge plan: INSULATION BLOWER CONTACTED PATIENT VIA PHONE CALL. PATIENT IS VERY TEARFUL AND STATING HE IS IN A LOT OF PAIN. INSULATION BLOWER EXPLAINED REASON FOR CALL AND FOR DISCHARGE PLANS. PATIENT STATED THAT HE IS NOT SURE WHAT HE WANTS AND TO CALL HIS SISTER MAXINE ABOUT AFTER CARE PLANS. INSULATION BLOWER CONTACTED PATIENTS SISTER MAXINE. INSULATION BLOWER EXPLAINED REASON FOR CALL. INSULATION BLOWER PROVIDED A VERBAL LIST OF LOCAL FACILITIES FOR THE PATIENT TO GO TO, PATIENTS SISTER CHOOSE [facility]. INSULATION BLOWER WILL MAKE REFERRAL TO [facility] FOR REVIEW. PATIENT IS SCHEDULED FOR SURGERY AT 12PM TODAY. CASE MANAGEMENT TO FOLLOW.
--- NOTE | 2020-09-16 09:51 | NUR ---
MANAGER WOMEN FAXED REFERRAL TO [facility]. WILL NEED PT/OT EVALS AND COVID RESULTS FOR PLACEMENT.
--- NOTE | 2020-09-16 12:48 | NUR ---
AWAITING ACCEPTANCE/DENIAL FROM [facility]. CYANIDE FURNACE OPERATOR COMPLETED HENS. WILL NEED PT/OT EVALS TO COMPLETE REFERRAL TO [facility].
[2020-09-16] MEDS ORDERED: TRAMADOL HCL50 MG PO (18:42)
[2020-09-16] MEDS ORDERED: XARELTO10 MG PO (18:42)
[2020-09-16] MEDS ORDERED: CLEOCIN150 MG PO (18:42)
--- NOTE | 2020-09-16 20:30 | NUR ---
PT RESTING IN BED. CALL LIGHT WITHIN REACH WILL MONITOR
--- NOTE | 2020-09-16 21:47 | NUR ---
PT REQUESTED AND GIVEN PERCOCET FOR C/O LE PAIN / PT RATES PAIN 10/10 WILL MONITOR
--- NOTE | 2020-09-16 22:30 | NUR ---
PT STATES THAT PERCOCET HELPED A LITTLE. WILL MONITOR
[2020-09-17] VITALS: BP 147/78
--- NOTE | 2020-09-17 03:30 | NUR ---
PT RESTING IN BED, EYES CLOSED. WILL CONT TO MONITOR
[2020-09-17 08:00] VITALS: BP 164/72
--- NOTE | 2020-09-17 08:03 | NUR ---
Occupational Therapy evaluation completed on five with full evaluation to follow. Recommend occupational therapy per plan of care and SNF upon discharge. Recommend cecile lift for OOB activity and bedpan use at this time secondary to patient's functional status and pain. Thank you for this referral. Zoe Reid, OTR/L
--- NOTE | 2020-09-17 08:16 | NUR ---
NO VOICED COMPLAINTS. CALL LIGHT IN REACH. SITTING IN BED, WATCHING TV. DENIES PAIN AT PRESENT TIME. DRSG TO LEFT HIP IS DRY AND INTACT. NO SOILAGE/SHADOWING NOTED.
[2020-09-17 08:19] LABS: BASO % 0.1 % (0.0-1.0); LYMPH # 0.4 10*3/uL (1.3-4.4); LYMPH % 4.3 % (27.0-41.0); MEAN CELL VOLUME 88.2 fl (80.0-94.0); MEAN CORPUSCULAR HGB 25.2 pg (27.0-31.0); MEAN CORPUSCULAR HGB CONC 28.6 g/dl (33.0-37.0); MEAN PLATELET VOLUME 10.5 fl (9.6-12.3); MONO # 0.7 10*3/uL (0.1-1.0); MONO % 7.4 % (3.0-9.0); NEUT # 8.5 10*3/uL (2.3-7.9); NEUT % 87.9 % (47.0-73.0); PLATELET COUNT AUTOMATED 342 10*3/uL (130-400); RED BLOOD COUNT 3.97 10*6/uL (4.50-5.90); RED CELL DISTRI WIDTH 15.5 % (0-14.5); WHITE BLOOD COUNT 9.6 10*3/uL (4.8-10.8)
--- NOTE | 2020-09-17 09:04 | NUR ---
CALLED PODIATRY TO CONFIRM WHEN PT TO HAVE SURGERY, SURGERY TO BE SOMETIME NEXT WEEK. OKAY TO EAT ORDERED DIET.
--- NOTE | 2020-09-17 09:36 | NUR ---
PT REQUESTNG PRN PERCOCET FOR 10/10 LLE PAIN.
--- NOTE | 2020-09-17 09:45 | NUR ---
NOTIFIED HANY WITH ANESTHESIA THAT PT IS EXPERIENCING L ARM WEAKNESS AND LIP SWELLING. NO NEW ORDERS.
--- NOTE | 2020-09-17 10:15 | NUR ---
PT REPORTS SOME RELIEF FROM PRN PERCOCET, SEE EMAR.
[2020-09-17 12:00] VITALS: BP 134/63
--- NOTE | 2020-09-17 14:28 | NUR ---
DR. HOLLY AWARE OF PT REFUSING CT SCAN ON HEAD, NO NEW ORDERS.
[2020-09-17 16:00] VITALS: BP 129/53
[2020-09-17 20:00] VITALS: BP 138/51
--- NOTE | 2020-09-17 20:13 | NUR ---
PERCOCET GIVEN FOR MOANING/YELLING OUT IN PAIN. WILL MONITOR. CALL LIGHT IN REACH. DRSG TO FEET DRY AND INTACT. NO SOILAGE NOTED.
--- NOTE | 2020-09-17 21:06 | NUR ---
SLEEPING, NO SXS OF DISTRESS NOTED. RESPERATIONS EASY/REGULAR ON 3L NC. CALL LIGHT IN REACH, BED ALARM MAINTAINED.
--- NOTE | 2020-09-17 22:19 | NUR ---
WALKED INTO PTs ROOM, NOTED YELLING/MOANING. STATES HE IS IN PAIN. STATES PER PERCOCET WAS INEFFECTIVE. ASKING FOR A "PAIN SHOT". CALLED , NEW ORDERS FOR LICHA IRWIN'Whitney. SEE MAR.
--- NOTE | 2020-09-17 22:42 | NUR ---
DILAUDID GIVEN PER ORDERS FOR BILAT FEET PAIN. CALL LIGHT IN REACH, WILL MONITOR.
--- NOTE | 2020-09-17 23:36 | NUR ---
PER PT, DILAUDID WAS EFFECTIVE. MOANING HAS STOPPED. PT MORE RELAXED AT THIS TIME. PAIN RATED 3/10. CALL LIGHT IN REACH.
[2020-09-18] VITALS: BP 116/38
--- NOTE | 2020-09-18 04:00 | NUR ---
24HR CHART CHECK COMPLETED
--- NOTE | 2020-09-18 04:09 | NUR ---
PODIATRY RESIDENT ON FLOOR AT THIS TIME. ASKED ABOUT KEFZOL POST-OP. OK TO D/C.
--- NOTE | 2020-09-18 04:36 | NUR ---
AWAKE AND ASKING FOR PAIN MED. STATES PAIN TO FEET IS 7/10. PERCOCET GIVEN. WILL MONITOR. CALL LIGHT IN REACH.
--- NOTE | 2020-09-18 05:16 | NUR ---
PER PT, PERCOCET EFFECTIVE. CALL LIGHT IN REACH. STATES HE ONLY HAS PAIN WHEN HE MOVES HIS FEET NOW. IF HE LETS THEM BE STILL, THEY DON'Y HURT THAT MUCH.
[2020-09-18 07:18] LABS: BASO % 0.4 % (0.0-1.0); EOS # 0.2 10*3/uL (0.0-0.4); HEMATOCRIT 30.7 % (42.0-52.0); LYMPH # 1.2 10*3/uL (1.3-4.4); LYMPH % 13.7 % (27.0-41.0); MEAN CORPUSCULAR HGB 24.9 pg (27.0-31.0); MEAN CORPUSCULAR HGB CONC 28.3 g/dl (33.0-37.0); MEAN PLATELET VOLUME 10.3 fl (9.6-12.3); MONO # 0.8 10*3/uL (0.1-1.0); MONO % 9.8 % (3.0-9.0); NEUT # 6.3 10*3/uL (2.3-7.9); NEUT % 73.7 % (47.0-73.0); PLATELET COUNT AUTOMATED 336 10*3/uL (130-400); RED BLOOD COUNT 3.49 10*6/uL (4.50-5.90); RED CELL DISTRI WIDTH 15.9 % (0-14.5); WHITE BLOOD COUNT 8.5 10*3/uL (4.8-10.8)
[2020-09-18 07:35] LABS: BUN 28 mg/dl (7-24); CHLORIDE 97 mmol/L (98-107); CREATININE 0.99 mg/dL (0.70-1.30); POTASSIUM 4.2 mmol/L (3.5-5.1); SODIUM 135 mmol/L (136-145)
[2020-09-18 08:00] VITALS: BP 148/60
--- NOTE | 2020-09-18 09:00 | NUR ---
PATIENT REPORTS HAVING LEFT ARM WEAKNESS SINCE EARLIER THROUGHOUT THE NIGHT, CAN TECHNICIAN IS WEAKER TO LEFT HAND THAN RIGHT.
--- NOTE | 2020-09-18 09:13 | NUR ---
ADMINISTERED PO PERCOCET X 1 NOW ORDERED FOR BILATERAL FEET PAIN.
--- NOTE | 2020-09-18 10:00 | NUR ---
PRN PO PERCOCET NOT EFFECTIVE FOR BILATERAL FEET PAIN, PER PATIENT.
[2020-09-18 12:00] VITALS: BP 138/65
--- NOTE | 2020-09-18 13:37 | NUR ---
PATIENT MEDICATED WITH PRN IV DILAUDID FOR BILATERAL FEET PAIN.
--- NOTE | 2020-09-18 14:21 | NUR ---
DR. TYLER'S ANSWERING SERVICE PAGING HIM (HE IS REPAIR SERVICER FOR DR. COELLO). PATIENT NEEDS CARDIAC CLEARANCE FOR SURGERY.K
--- NOTE | 2020-09-18 14:25 | NUR ---
PRN IV DILAUDID SOMEWHAT EFFECTIVE, PER PATIENT.
--- NOTE | 2020-09-18 14:41 | NUR ---
DR. COELLO AWARE OF CONSULT, WILL SEE THE PATIENT AFTER TOMORROW.
[2020-09-18 16:00] VITALS: BP 100/43
--- NOTE | 2020-09-18 17:57 | NUR ---
MEDICATED WITH PRN PO PERCOCET FOR BILATERAL FEET PAIN.
[2020-09-18 20:00] VITALS: BP 146/66
--- NOTE | 2020-09-18 20:47 | NUR ---
SPOKE WITH RESIDENT DR. COELLO IN REGARDS TO PATIENT PAIN MANAGEMENT. 2MG MORPHINE ORDERED FOR NOW.
--- NOTE | 2020-09-18 21:07 | NUR ---
ONE TIME DOSE OF MORPHINE GIVEN AT THIS TIME FOR PATIENT C/O BILATERTAL LEG/FOOT/ANKLE PAIN, RATING A 10/10. CALL LIGHT IS WITHIN REACH. WILL MONITOR EFFECT.
--- NOTE | 2020-09-18 21:30 | NUR ---
ONE TIME MORPHINE EFFECTIVE PER PATIENT. CALL LIGHT IS WITHIN REACH. WILL CONTINUE TO MONITOR.
--- NOTE | 2020-09-18 23:04 | NUR ---
PRN DILAUDID GIVEN AT THIS TIME FOR C/O BILATERAL ANKLE/FOOT PAIN RATING A 10/10. CALL LIGHT IS WITHIN REACH, WILL MONITOR EFFECT.
[2020-09-19] VITALS: BP 144/61
--- NOTE | 2020-09-19 00:30 | NUR ---
PRN DILAUDID EFFECTIVE. PATIENT IS SLEEPING. RESPERS ARE EASY AND REGULAR. CALL LIGHT IS WITHIN REACH.
--- NOTE | 2020-09-19 00:43 | NUR ---
PRN PERCOCET GIVEN AT THIS TIME FOR C/O BILATERAL FOOT PAIN RATING A 10/10. CALL LIGHT IS WITHIN REACH. WILL MONITOR.
--- NOTE | 2020-09-19 01:30 | NUR ---
PRN PERCOCET EFFECTIVE. PATIENT SLEEPING. RESPERS EASY AND REGULAR. CALL LIGHT IS WITHIN REACH.
--- NOTE | 2020-09-19 06:33 | NUR ---
PATIENT WOULD NOT LIKE INSULIN UNTIL BREAKFAST HAS ARRIVED. CALL LIGHT IS WITHIN REACH.
[2020-09-19 08:00] VITALS: BP 144/84
[2020-09-19 12:00] VITALS: BP 170/84
--- NOTE | 2020-09-19 13:37 | NUR ---
PERCOCET GIVEN FOR C/O LT ANKLE PAIN. RATES 10/10 ON PAIN SCALE. WILL MONITOR.
--- NOTE | 2020-09-19 14:45 | NUR ---
PERCOCET EFFECTIVE PER PT.
--- NOTE | 2020-09-19 14:50 | NUR ---
NOTIFIED DR. REEDER OF CONSULT.
[2020-09-19 16:00] VITALS: BP 160/54
[2020-09-19 20:00] VITALS: BP 147/81
--- NOTE | 2020-09-19 21:09 | NUR ---
IV started right forearm with #20 angiocath. The IV site was prepped with Chloraprep. Heparin lock attached. Sterile dressing applied. Patient tolerated precedure well. Procedure performed according to [facility] policy & procedure. IV TO LEFT HAND OCCLUDED AND DISCONTINUED. LANE BYRD
[2020-09-19 23:56] VITALS: BP 145/67
--- NOTE | 2020-09-20 07:44 | NUR ---
PT SEEN AND ASSESSED. PT REFUSED DOSE OF DILAUDID AT SCHEDULED TIME AND NOW REQUESTING THE MEDICATION. MEDICATION PROVIDED
[2020-09-20 07:50] LABS: BASO % 0.4 % (0.0-1.0); EOS # 0.1 10*3/uL (0.0-0.4); EOS % 1.6 % (1.0-4.0); HEMATOCRIT 29.1 % (42.0-52.0); LYMPH # 0.8 10*3/uL (1.3-4.4); LYMPH % 12.4 % (27.0-41.0); MEAN CELL VOLUME 87.4 fl (80.0-94.0); MEAN CORPUSCULAR HGB 25.2 pg (27.0-31.0); MEAN CORPUSCULAR HGB CONC 28.9 g/dl (33.0-37.0); MEAN PLATELET VOLUME 10.5 fl (9.6-12.3); MONO # 0.7 10*3/uL (0.1-1.0); MONO % 10.6 % (3.0-9.0); NEUT % 74.6 % (47.0-73.0); PLATELET COUNT AUTOMATED 281 10*3/uL (130-400); RED BLOOD COUNT 3.33 10*6/uL (4.50-5.90); RED CELL DISTRI WIDTH 15.5 % (0-14.5); WHITE BLOOD COUNT 6.7 10*3/uL (4.8-10.8)
[2020-09-20 08:00] VITALS: BP 144/78
[2020-09-20 08:18] LABS: ALBUMIN 2.4 gm/dl (3.1-4.5); ALKALINE PHOSPHATASE 81 U/L (45-117); BUN 25 mg/dl (7-24); CHLORIDE 97 mmol/L (98-107); CREATININE 0.84 mg/dL (0.70-1.30); IRON 27 ug/dL (65-175); POTASSIUM 4.3 mmol/L (3.5-5.1); SGOT/AST 16 IU/L (3-35); SGPT/ALT 18 U/L (12-78); SODIUM 136 mmol/L (136-145); TOTAL IRON BINDING CAPACITY 284 ug/dl (250-450); TOTAL PROTEIN 6.8 gm/dL (6.4-8.2)
--- NOTE | 2020-09-20 08:33 | NUR ---
PT REQUEST PAIN MEDICATION FOR 10/10 L ANKLE PAIN. PRN PAIN MEDICATION PROVIDED. WILL REASSESS.
--- NOTE | 2020-09-20 08:44 | NUR ---
PT STATES HIS IV PAIN MEDICATION WAS NOT EFFECTIVE. PO PAIN WAS GIVEN. AWAITING TO REASSESS EFFECTIVENESS.
--- NOTE | 2020-09-20 09:45 | NUR ---
PT RESTING QUIETLY IN BED AT THIS TIME. PT VERBALIZES NO C/O AT THIS TIME
[2020-09-20 12:00] VITALS: BP 146/69
[2020-09-20 16:00] VITALS: BP 136/72
[2020-09-20 20:00] VITALS: BP 157/69
[2020-09-21] VITALS (9 sets, daily range): BP systolic 138–163; BP diastolic 56–86
--- NOTE | 2020-09-21 00:26 | NUR ---
PERCOCET GIVEN PER ORDER FOR PAIN IN LOWER LEGS RATED "9"SEE NOTES.
--- NOTE | 2020-09-21 00:43 | NUR ---
DILAUDID GIVEN PER ORDER FOR PAIN IN LEGS BILATERALLY. RATED "9" SEE MAR.
--- NOTE | 2020-09-21 01:20 | NUR ---
PERCOCET AND DILAUDID NOT EFFECTIVE FOR LOWER LEG PAIN PER PT..
--- NOTE | 2020-09-21 04:12 | NUR ---
24 HR chart check completed.
--- NOTE | 2020-09-21 05:20 | NUR ---
DR. Fahad MORAES CALLED IN AND ORDER RECIEVED TO HAVE PATIENT EAT LIGHT CLEAR LIQUID BREAKFAST FOR POSSIBLE SURGERY AT 2PM TODAY.
--- NOTE | 2020-09-21 06:20 | NUR ---
PATIENT AWARE HE IS NPO NOW AND NOT TO HAVE ANYTHING TO EAT OR DRINK FROM NOW UNTIL SURGERY.
--- NOTE | 2020-09-21 07:10 | NUR ---
DR. MORAES CALLED AND PATIENT TO BE NPO NOW NO CLEAR LIQUID BREAKFAST. NOTIFIED OF PATIENT LAST DRANK SOMETHING AT 0615 WATER WITH PILLS.
--- NOTE | 2020-09-21 07:43 | NUR ---
OT NOTE Attempted to see pt this A.M. for OT session and upon arrival pt was under transport supervision for surgery. Will check back at a later time/date and continue with POC as able. WILL Ortiz/Zee
--- NOTE | 2020-09-21 07:55 | NUR ---
PHYSICAL THERAPY Patient was being transported to surgery at 07:50 am. Will check back with patient this afternoon. MADELIN FABIAN SPECIAL EVENTS MANAGER
--- NOTE | 2020-09-21 08:06 | NUR ---
SPOKE TO DR. RIDDLE FROM PODIATRY. WANTS PATIENT TO HAVE SURGERY TO R LEG TODAY. NOTIFIED DR. HOLLY. PLACED TELEPHONE ORDER FOR ANCEF, 3GM 1 HOUR PRIOR TO SURGERY. AND ALSO ORDERED TO GIVE LOVENOX.
--- NOTE | 2020-09-21 08:12 | NUR ---
AWAITING ACCEPTANCE FROM [facility]. AIRCRAFT AVIONICS TECHNICIAN FAXED UPDATES TO [facility].
--- NOTE | 2020-09-21 08:31 | NUR ---
PER DR MORAES, CAST TO BE REMOVED IN THE OR. UNABLE TO DO PREOP PICTURES.
--- NOTE | 2020-09-21 10:00 | NUR ---
[facility] HAS DENIED THIS PATIENT. FEATHER MIXER WILL REACH OUT TO PATIENTS SISTER AND DISCUSS OTHER OPTIONS.
--- NOTE | 2020-09-21 10:34 | NUR ---
CEMENT WORKER REACHED OUT TO PATIENTS SISTER MAXINE. CEMENT WORKER EXPLAINED [facility] DENIAL. PATIENTS IS AGREEABLE TO HAVE REFERRAL SENT TO [facility] FOR [facility]. CEMENT WORKER FAXED REFERRAL TO [facility] FOR [facility]VIEW.
--- NOTE | 2020-09-21 11:09 | NUR ---
[facility] HAS ACCEPTED THIS PATIENT.
--- NOTE | 2020-09-21 12:46 | NUR ---
OT NOTE Attempted to see pt this P.M. for OT session and upon arrival pt was just returning from surgery still under surgery staff care. Will check back at a later time and continue with POC as able. WILL Ortiz/Zee
--- NOTE | 2020-09-21 14:02 | NUR ---
OT NOTE Third attempt made to see pt this P.M. for OT session and upon arrival pt was supine in bed. Pt declined therapy at this time with reports of 10/10 RLE pain. Pt stated "you try to have surgery and then be told to do therapy." Pt continued to decline at this time. Will check back at a later time/date and continue with POC as able. WILL Ortiz/Zee
--- NOTE | 2020-09-21 14:09 | NUR ---
PATIENT RETURNED FROM [facility] AT 1300, LATE FOR GLUCOSE CHECK. WILL RESUME DIET AND GLUCOMETER AT 1630
--- NOTE | 2020-09-21 14:59 | NUR ---
PHYSICAL THERAPY Patient was approached for his therapy session again this afternoon and patient declined treatment saying , "he just came back from surgery and was in severe pain, so he isn't doing therapy"! Will check back with patient at a later date. MADELIN FABIAN POLICY SERVICES REPRESENTATIVE
--- NOTE | 2020-09-21 23:39 | NUR ---
PATIENT MEDICATED WITH PERCOCET FOR COMPLAINTS OF BILATERAL FOOT/LEG PAIN. WILL MONITOR FOR EFFECTIVENESS. CALL LIGHT IN REACH.
[2020-09-22] VITALS: BP 156/44
--- NOTE | 2020-09-22 00:30 | NUR ---
PERCOCET EFFECTIVE AT THIS TIME. RESTING IN BED WATCHING TV. NO SIGNS OR SYMPTOMS OF DISTRESS NOTED. CALL LIGHT IN REACH.
[2020-09-22 07:04] LABS: BUN 25 mg/dl (7-24); CHLORIDE 97 mmol/L (98-107); CREATININE 0.98 mg/dL (0.70-1.30); POTASSIUM 4.7 mmol/L (3.5-5.1); SODIUM 140 mmol/L (136-145)
[2020-09-22 07:15] LABS: BASO % 0.4 % (0.0-1.0); EOS % 0.1 % (1.0-4.0); HEMATOCRIT 29.3 % (42.0-52.0); LYMPH # 0.8 10*3/uL (1.3-4.4); LYMPH % 9.4 % (27.0-41.0); MEAN CORPUSCULAR HGB 25.5 pg (27.0-31.0); MEAN CORPUSCULAR HGB CONC 30.7 g/dl (33.0-37.0); MEAN PLATELET VOLUME 10.7 fl (9.6-12.3); MONO # 0.8 10*3/uL (0.1-1.0); MONO % 9.3 % (3.0-9.0); NEUT # 6.8 10*3/uL (2.3-7.9); NEUT % 80.4 % (47.0-73.0); NUCLEATED RED BLOOD CELL 0.2 % (0.0-0.0); RED BLOOD COUNT 3.53 10*6/uL (4.50-5.90); RED CELL DISTRI WIDTH 15.5 % (0-14.5); WHITE BLOOD COUNT 8.4 10*3/uL (4.8-10.8)
[2020-09-22 07:19] LABS: PLATELET COUNT AUTOMATED 414 10*3/uL (130-400)
--- NOTE | 2020-09-22 07:43 | NUR ---
RAIL CAR MECHANIC FAXED UPDATES TO [facility].
--- NOTE | 2020-09-22 07:45 | NUR ---
OT NOTE Pt was seen this A.M. 1:1 for 25 minute OT session. Upon arrival pt was supine in bed. Pt identified by name and and had complaints of 10/10 R ankle pain. Pt presented to therapy with continuous 5L-O2 via NC which he remained on throughout the entire session. Pt was able to self recall and verbalize NWB to BLE's. After much encouragement pt transferred supine to sit EOB with maxA for assist with RLE due to weight of the cast and was able to manage upper body with use of bed rails. Upon inital rise to the EOB pt had complaints of mild dizziness. Pt was educated on visual fixation technique and after aprox 20 seconds pt had no other complaints of feeling dizzy. While sitting EOB pt completed BUE towel exercises with mod resistance over all planes for 1 X 10 to increase and restore maximum functional strength. Throughout entire session pt required extra time for all tasks due to slow rate of performance. Pt tolerated sitting EOB for aprox 15 minutes before transferring sit to supine with maxA for assist with BLE's due to weight of the casts. Pt was left supine in bed with call light in hand, tray table in place, and bed alarm activated for safety. Continue with rec D/C plan to SNF. WILL Ortiz/Zee
[2020-09-22 08:00] VITALS: BP 143/68
--- NOTE | 2020-09-22 08:40 | NUR ---
PHYSICAL THERAPY Patient presented to therapy in supine with head of bed elevated and bed alarm on. Patient reports 10/10 pain in the R LE. Patient gives informed consent for treatment. Patient was identified by name and on wristband. Patient would rather not do therapy ,but he is willing to at least set up on EOB. Patient is on 5 LITERS of spO2 via nasal canula. Patient completed supine < > sitting on EOB with MAX A X 1 for moving R LE out over EOB and SBA for the remainder of the supine to sitting EOB. Patient sat on EOB for 8 minutes total with SBA. Patient complaints of pain in the bilateral LEs and R shoulder. Patient transfers back to supine in bed with MAX A X 1 for moving R LE up into bed and the remainder of the transfer was SBA. Patient moved himself up to head of bed himself with SBA. Patient was left in supine in bed with head of bed elevated and bed alarm on. Patient's call light within reach. Patient was 1:1 with this INFORMATION TECHNOLOGY ASSOCIATE for 20 minutes total. MADELIN FABIAN INFORMATION TECHNOLOGY ASSOCIATE
--- NOTE | 2020-09-22 08:57 | NUR ---
MEDICATED WITH PRN PO PERCOCET FOR BILATERAL FEET/ANKLES PAIN.
--- NOTE | 2020-09-22 09:38 | NUR ---
PATIENT CAN BE DISCHARGED TO [facility] WHEN MEDICALLY STABLE.
--- NOTE | 2020-09-22 09:45 | NUR ---
PRN PO PERCOCET EFFECTIVE, PER PATIENT.
--- NOTE | 2020-09-22 11:35 | NUR ---
HENS HAS BEEN UPDATED.
[2020-09-22 12:00] VITALS: BP 138/86
--- NOTE | 2020-09-22 13:15 | NUR ---
PHYSICAL THERAPY Patient was approached for his PM treatment this afternoon at 1:15 PM and patient was complaining of severe pain in the R LE. Patient attempted to move from supine to sitting on EOB and he had to stop due to increased severe pain in the R LE. Patient then began to cry due to the pain. Patient declined further treatment. Will check back with patient at a later date. MADELIN FABIAN QUILLER MACHINE FIXER
--- NOTE | 2020-09-22 13:30 | NUR ---
OT NOTE Attempted to see pt this P.M. for second OT session and upon arrival pt was supine in bed. Pt declined treatment at this time and began crying stating he was in 10/10 R ankle pain. Every attempt to move pt's LE's pt would scream out and begin to cry. No treatment provided at this time. Will check back at a later time/date and continue with POC as able. WILL Ortiz/Zee
[2020-09-22] MEDS ORDERED: LANTUS SOL100 UNIT/1 SQ (14:21)
--- NOTE | 2020-09-22 14:37 | NUR ---
CONVEX GRINDER OPERATOR NOTIFIED OF PATIENT DISCHARGE. CONVEX GRINDER OPERATOR SPOKE WITH RAFAEL SENA. CONVEX GRINDER OPERATOR ARRANGED FOR A 5PM TRANSPORT WITH [facility]. CONVEX GRINDER OPERATOR NOTIFIED [facility]. CONVEX GRINDER OPERATOR SPOKE WITH PATIENTS SISTER MAXINE. SHE IS AWARE OF DISCHARGE/TRANSPORT. CONVEX GRINDER OPERATOR TO FAX DISCHARGE ORDERS TO [facility]. CONVEX GRINDER OPERATOR TO FAX DEMOGRAPHICS TO [facility].
[2020-09-22 16:00] VITALS: BP 140/71
--- NOTE | 2020-09-22 16:03 | NUR ---
ADMINISTERED IV ZOFRAN X 1 ORDERED FOR UPSET STOMACH AT THIS TIME.
--- NOTE | 2020-09-22 16:20 | NUR ---
PRN IV ZOFRAN EFFECTIVE, PER PATIENT.
--- NOTE | 2020-09-22 17:15 | NUR ---
Discharge instructions reviewed with patient. Patient receptive and verbalizes understanding. Follow-up care arranged. Written instructions given to patient. KYLAH LOPEZ
--- NOTE | 2020-09-22 17:26 | NUR ---
PREPARING PATIENT FOR DISCHARGE TO [facility]. REPORT CALLED RECEIVING NURSE AT THE FACILITY.
--- NOTE | 2020-09-22 17:42 | NUR ---
PATIENT DISCHARGED TO [facility] BY AMBULANCE SERVICE AT THIS TIME.
--- NOTE | 2020-09-23 07:51 | NUR ---
PHYSICAL THERAPY CO-SIGN I approve of the Phyical Therapy notes written above. Seble Cabrera PT, DPT
--- NOTE | 2020-09-23 07:58 | NUR ---
OCCUPATIONAL THERAPY CO-SIGN I approve of the Occupational Therapy notes written above. YURI WOODSON, OTR/L
== END 2020-09-22 17:45 | disposition other institution (70) | DRG 313 ==
LOC: ED 12:32 → EDHOLD 19:13 → 5E 19:13
PROVIDERS: Hospitalist; Internal Medicine Nephrology; Podiatrist; ADMIT Internal Medicine; ATTEND Internal Medicine
PROC: 2W3TX1Z Immobilization of Left Foot using Splint (ICD-10-PCS; 2020-09-15)
PROC: 2W3TX1Z Immobilization of Left Foot using Splint (ICD-10-PCS; 2020-09-15)
PROC: 0QSH04Z Reposition Left Tibia with Internal Fixation Device, Open Approach (ICD-10-PCS; 2020-09-16)
PROC: 0QSK0ZZ Reposition Left Fibula, Open Approach (ICD-10-PCS; 2020-09-16)
PROC: 0SSG04Z Reposition Left Ankle Joint with Internal Fixation Device, Open Approach (ICD-10-PCS; 2020-09-16)
PROC: 0MQR0ZZ Repair Left Ankle Bursa and Ligament, Open Approach (ICD-10-PCS; 2020-09-16)
PROC: 0QSJ04Z Reposition Right Fibula with Internal Fixation Device, Open Approach (ICD-10-PCS; principal; 2020-09-21)
PROC: 0SSF04Z Reposition Right Ankle Joint with Internal Fixation Device, Open Approach (ICD-10-PCS; 2020-09-21)
PROC: 0MQQ0ZZ Repair Right Ankle Bursa and Ligament, Open Approach (ICD-10-PCS; 2020-09-21)
DX: S82.851A Displaced trimalleolar fracture of right lower leg, initial encounter for closed fracture (principal); W10.8XXA Fall (on) (from) other stairs and steps, initial encounter; Z68.44 Body mass index [BMI] 60.0-69.9, adult; E03.9 Hypothyroidism, unspecified; K21.9 Gastro-esophageal reflux disease without esophagitis; J96.11 Chronic respiratory failure with hypoxia; E43 Unspecified severe protein-calorie malnutrition; E66.2 Morbid (severe) obesity with alveolar hypoventilation; E11.65 Type 2 diabetes mellitus with hyperglycemia; E55.9 Vitamin D deficiency, unspecified; D72.810 Lymphocytopenia; D64.9 Anemia, unspecified; F32.9 Major depressive disorder, single episode, unspecified; I27.20 Pulmonary hypertension, unspecified; F17.220 Nicotine dependence, chewing tobacco, uncomplicated; F90.9 Attention-deficit hyperactivity disorder, unspecified type; E78.5 Hyperlipidemia, unspecified; S93.421A Sprain of deltoid ligament of right ankle, initial encounter; S93.491A Sprain of other ligament of right ankle, initial encounter; S82.872A Displaced pilon fracture of left tibia, initial encounter for closed fracture; S82.452A Displaced comminuted fracture of shaft of left fibula, initial encounter for closed fracture; S93.422A Sprain of deltoid ligament of left ankle, initial encounter; S93.492A Sprain of other ligament of left ankle, initial encounter; I50.812 Chronic right heart failure; I50.32 Chronic diastolic (congestive) heart failure; I11.0 Hypertensive heart disease with heart failure; Z91.14 Patient's other noncompliance with medication regimen; Z88.6 Allergy status to analgesic agent; Z20.828 Contact with and (suspected) exposure to other viral communicable diseases; R53.1 Weakness; R20.0 Anesthesia of skin; E11.42 Type 2 diabetes mellitus with diabetic polyneuropathy; Z83.3 Family history of diabetes mellitus; Y93.89 Activity, other specified; Y92.098 Other place in other non-institutional residence as the place of occurrence of the external cause; Y99.8 Other external cause status; Z81.3 Family history of other psychoactive substance abuse and dependence; Z79.899 Other long term (current) drug therapy; Z91.11 Patient's noncompliance with dietary regimen

== ENCOUNTER 2020-10-13 06:54 | Emergency (ER) | payer OTHER ==
[~2020-10-13 06:54] MED LIST changes: +CLEOCIN150 MG PO; +XARELTO10 MG PO
== END 2020-10-13 07:00 | disposition expired ==
LOC: ED 06:54
DX: R40.4 Transient alteration of awareness (principal); Z88.8 Allergy status to other drugs, medicaments and biological substances; Z79.899 Other long term (current) drug therapy